=== PATIENT | female | born 1940 | race Caucasian/White ===

== ENCOUNTER → 2016-12-26 | Outpatient (CLI) | payer MEDICARE ==
[~2016-12-26] MED LIST: AMLO5TAB2 PO; ASP81TEC PO; CALCIUM; ESCT10T PO; GLUC-137 PO; LSNP20T PO; METF-380 PO; OMEG-12 PO; SAXA1TBM3 PO
--- NOTE | 2016-12-26 17:12 | Diagnostic Imaging Report ---
EXAMINATION: DEXA scan. INDICATION: Osteopenia TECHNIQUE: Bone mineral density estimated based on dual energy radiography over the lumbar spine and femoral necks, was performed. FINDINGS: The lumbar spine T-score is 0. This is 12% increased density compared to 2007 and is likely artifactual secondary to degenerative sclerosis. T score over the left femoral neck is -2.4 and on the right side is -2.7 averaging at -2.6 and is 8% decreased density compared to 2007. Femoral neck measurements are considered more reliable in this patient. IMPRESSION: Osteoporosis.. Dictated by: Dictated on workstation # [id number]
== END ==
LOC: RAD 09:10
PROVIDERS: ATTEND Family Medicine
DX: M81.0 Age-related osteoporosis without current pathological fracture (principal)
CPT/HCPCS: 77080

== ENCOUNTER → 2017-02-07 | Outpatient (CLI) | payer MEDICARE ==
--- NOTE | 2017-02-07 08:56 | Diagnostic Imaging Report ---
INDICATION: Dry cough for approximately 4 months. TECHNIQUE: Two view chest 8:58 AM CORRELATION STUDY: 01/03/2015 FINDINGS: The heart size, mediastinal configuration and pulmonary vasculature are within normal limits. The lungs are clear with no consolidating infiltrate. There is no significant pleural effusion or pneumothorax. Mild accentuated kyphotic curvature of the thoracic spine owing to mildly compressed mid thoracic vertebral bodies, stable. IMPRESSION: 1. No radiographic evidence for acute abnormality of the chest. Dictated by: Dictated on workstation # [id number]
== END ==
LOC: RAD 08:35
PROVIDERS: ATTEND Family Medicine
DX: R05 Cough (principal)
CPT/HCPCS: 71020

== ENCOUNTER → 2017-03-20 | Outpatient (CLI) | payer MEDICARE ==
--- NOTE | 2017-03-20 16:19 | Diagnostic Imaging Report ---
Two views of the right hand. INDICATION: Pain in the right middle finger. FINDINGS: There is no fracture, dislocation or radiopaque foreign body. There is mild to moderate degenerative change seen in the carpometacarpal joint at the base of the thumb. Mild degenerative changes in the distal interphalangeal joints slightly more prominent in the middle finger is seen with the osteophyte formation. IMPRESSION: Uawm-ur-hullyjps degenerative changes. Dictated by: Dictated on workstation # [id number]
== END ==
LOC: RAD 10:44
PROVIDERS: ATTEND Family Medicine
DX: M19.041 Primary osteoarthritis, right hand (principal)
CPT/HCPCS: 73130

== ENCOUNTER → 2017-10-15 | Outpatient (CLI) | payer MEDICARE ==
--- NOTE | 2017-10-15 14:38 | Diagnostic Imaging Report ---
INDICATION: Right hip pain. TIME OF EXAM: 12:21 PM. FINDINGS: The femoroacetabular alignment is normal. Mild joint space narrowing is seen. The femoral head and neck are intact. No fractures are seen. IMPRESSION: No acute bony abnormality is detected. Dictated by: Dictated on workstation # [id number]
--- NOTE | 2017-10-15 14:38 | Diagnostic Imaging Report ---
INDICATION: Chronic back pain. TIME OF EXAM: 12:20 p.m. FINDINGS: Three views of the lumbar spine demonstrate normal curvature and alignment. Vertebral body heights are maintained. No acute compression fracture is detected. There is multilevel degenerative disc disease with significant disc space narrowing and marginal spurring at the L2-L3, L3-L4 and L4-L5 levels. There is vacuum disc phenomenon at these levels as well. Multilevel facet arthropathy is seen. There are atherosclerotic calcifications in the abdominal aorta. IMPRESSION: Severe lumbar spondylosis. No acute fracture is detected. Dictated by: Dictated on workstation # [id number]
== END ==
LOC: RAD 11:51
PROVIDERS: ATTEND Family Medicine
DX: M47.816 Spondylosis without myelopathy or radiculopathy, lumbar region (principal); M54.41 Lumbago with sciatica, right side; M25.551 Pain in right hip
CPT/HCPCS: 72100; 73502

== ENCOUNTER 2017-11-14 08:31 | Outpatient (RCR) | payer MEDICARE | END 2017-12-26 12:01 | disposition home or self-care (01) | PROVIDERS: ATTEND Family Medicine | DX: M16.11 Unilateral primary osteoarthritis, right hip (principal); M51.36 Other intervertebral disc degeneration, lumbar region ==

== ENCOUNTER 2018-07-01 15:58 | Emergency (ER) | payer MEDICARE ==
[~2018-07-01] VITALS: Ht 154.9 cm; Wt 59.0 kg
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
--- NOTE | 2018-07-01 17:06 | Diagnostic Imaging Report ---
INDICATION: FINDINGS: Frontal and lateral views of the left tibia and fibula demonstrate osteopenia. No fracture or foreign body is present. Mild degenerative change is present in the knee. IMPRESSION: There are no acute findings. Dictated by: Dictated on workstation # [id number]
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
[2018-07-01] MEDS ORDERED: TETRACAINE 0.5% OPHTH SOLN 4 ML BTL (SINGLE DOSE ONLY) ONE (17:35)
[2018-07-01] MEDS ORDERED: AMOX500C2 PO (17:47)
[2018-07-01 18:00] VITALS: BP 169/91
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
== END 2018-07-01 18:02 | disposition home or self-care (01) ==
LOC: EDUNIT# 15:58 → ER 15:59
DX: S02.82XA Fracture of other specified skull and facial bones, left side, initial encounter for closed fracture (principal); E11.9 Type 2 diabetes mellitus without complications; F32.9 Major depressive disorder, single episode, unspecified; R40.2142 Coma scale, eyes open, spontaneous, at arrival to emergency department; R40.2252 Coma scale, best verbal response, oriented, at arrival to emergency department; R40.2362 Coma scale, best motor response, obeys commands, at arrival to emergency department; F17.200 Nicotine dependence, unspecified, uncomplicated; Z79.82 Long term (current) use of aspirin; Z79.84 Long term (current) use of oral hypoglycemic drugs; V49.50XA Passenger injured in collision with unspecified motor vehicles in traffic accident, initial encounter
CPT/HCPCS: 70450; 70486; 72125; 73590

== ENCOUNTER 2018-09-16 12:18 | Emergency (ER) | payer MEDICARE ==
[~2018-09-16] VITALS: Ht 154.9 cm; Wt 59.0 kg
[~2018-09-16 12:18] MED LIST changes: +AMOX500C2 PO
[2018-09-16] MEDS ORDERED: ASPIRIN 81 MG CHEW (CHILDREN'S ASA) PO ONE (12:45)
[2018-09-16 12:53] LABS: BASOPHILS % (AUTO) 0 % (0-10); EOSINOPHILS # (AUTO) 0.2 10^3/uL (0.0-0.3); EOSINOPHILS % (AUTO) 2 % (0-10); HEMATOCRIT 42 % (35-52); HEMOGLOBIN 14.3 G/DL (11.5-16.0); LYMPHOCYTES # (AUTO) 2.7 X 10^3 (1.0-4.0); LYMPHOCYTES % (AUTO) 28 % (12-44); MEAN CORPUSCULAR HEMOGLOBIN 28 PG (25-34); MEAN CORPUSCULAR HGB CONC 34 G/DL (32-36); MEAN CORPUSCULAR VOLUME 82 FL (80-99); MEAN PLATELET VOLUME 10.1 FL (7.4-10.4); MONOCYTES # (AUTO) 0.6 X 10^3 (0.0-1.0); MONOCYTES % (AUTO) 6 % (0-12); NEUTROPHILS # (AUTO) 6.1 X 10^3 (1.8-7.8); NEUTROPHILS % (AUTO) 63 % (42-75); PLATELET COUNT 242 10^3/uL (130-400); RED BLOOD COUNT 5.07 10^6/uL (4.35-5.85); RED CELL DISTRIBUTION WIDTH 13.1 % (10.0-14.5); WHITE BLOOD COUNT 9.6 10^3/uL (4.3-11.0)
[2018-09-16 13:00] LABS: PROTHROMBIN TIME PATIENT 13.3 SEC (12.2-14.7)
[2018-09-16 13:05] LABS: ALANINE AMINOTRANSFERASE 20 U/L (0-55); ALBUMIN 4.7 GM/DL (3.2-4.5); ALKALINE PHOSPHATASE 70 U/L (40-136); BILIRUBIN,TOTAL 0.5 MG/DL (0.1-1.0); BUN/CREATININE RATIO 21; CALCIUM 10.5 MG/DL (8.5-10.1); CARBON DIOXIDE 18 MMOL/L (21-32); CHLORIDE 105 MMOL/L (98-107); CREATININE SERUM 0.99 MG/DL (0.60-1.30); GFR ESTIMATED 54; GLUCOSE 233 MG/DL (70-105); MAGNESIUM 2.3 MG/DL (1.8-2.4); POTASSIUM 3.9 MMOL/L (3.6-5.0); SODIUM 141 MMOL/L (135-145); TOTAL PROTEIN 8.1 GM/DL (6.4-8.2)
--- NOTE | 2018-09-16 13:07 | Diagnostic Imaging Report ---
INDICATION: Chest pain. TIME OF EXAM: 12:54 p.m. Comparison is made with prior chest from 02/07/2017. The heart size is normal. The pulmonary vascularity is unremarkable. The lungs are clear. No infiltrate, effusion or pneumothorax is detected. IMPRESSION: No acute cardiopulmonary process is detected. Dictated by: Dictated on workstation # [id number]
[2018-09-16 13:12] LABS: MYOGLOBIN SERUM 52.8 NG/ML (10.0-92.0)
[2018-09-16 13:32] LABS: BILIRUBIN,URINE NEGATIVE (NEGATIVE); CLARITY,URINE CLEAR; COLOR,URINE YELLOW; GLUCOSE, URINE (UA) 1+ (NEGATIVE); KETONES,URINE 1+ (NEGATIVE); LEUKOCYTE ESTERASE ,URINE 1+ (NEGATIVE); NITRITE,URINE NEGATIVE (NEGATIVE); PH,URINE 7 (5-9); PROTEIN,URINE NEGATIVE (NEGATIVE); UROBILINOGEN,URINE NORMAL (NORMAL)
[2018-09-16 13:40] LABS: BACTERIA,URINE NEGATIVE /HPF; SQUAMOUS EPITHELIAL CELL,UR RARE /HPF; WBC,URINE RARE /HPF
--- NOTE | 2018-09-16 13:49 | ED Chest Pain ---
General Chief Complaint: Chest Pain Stated Complaint: CHEST PAIN Nursing Triage Note: Pt had to be gotten out of car and brought to rm 9 in wheelchair. Pt presented with sense of impending doom. Pt reports having a dream last night that God spoke to pt that, "He was going to have to possibly take me." Pt c/o chest pain, numbness in feet and nose. Pt extremely anxious and repeating, "God's going to take me." Pt reports taking 650mg ASA prior to arrival to ED. Nursing Sepsis Screen: No Definite Risk Source: patient Exam Limitations: no limitations History of Present Illness Date Seen by Provider: Sep 16, 2018 Time Seen by Provider: 12:43 Allergies and Home Medications Allergies Coded Allergies: No Known Drug Allergies (Verified Allergy, Unknown, 09/18/07) Home Medications Amlodipine Besylate 5 Mg Tablet, 5 MG PO DAILY, (Reported) Amoxicillin 500 Mg Capsule, 500 MG PO TID Prescribed by: DAKOTA CAO on 07/01/18 174 Aspirin 81 Mg Tabec, 81 MG PO DAILY, (Reported) Escitalopram Oxalate 10 Mg Tablet, 10 MG PO DAILY, (Reported) Glucosamine/Chondroitin/Vit D3 1 Each Tablet, 1 EACH PO DAILY, (Reported) Lisinopril 20 Mg Tab, 20 MG PO DAILY, (Reported) Metformin Hcl 1,000 Mg Tablet, 1,000 MG PO HS, (Reported) [place]-3/Dha/Epa/Fish Oil 1 Each Capsule.dr, 1,000 MG PO DAILY, (Reported) Saxagliptin Hcl/Metformin Hcl 1 Each Tbmp.24hr, 1 EACH PO DAILY, (Reported) [Calcium] , 1 DAILY, (Reported) Past Kehntkn-Ztdxuj-Axgvgu Hx Patient Social History Recent Foreign Travel: No Contact w/Someone Who Travel: No Recent Infectious Disease Expo: No Immunizations Up To Date Tetanus Booster (TDap): Unknown Date of Pneumonia Vaccine: Jun 24, 2011 Date of Influenza Vaccine: Jun 22, 2012 Past Medical History Surgeries: No Respiratory: No Cardiac: Yes Hypertension Neurological: No Reproductive Disorders: No Genitourinary: No Gastrointestinal: No Musculoskeletal: No Endocrine: Yes Diabetes, Non-Insulin dep Cancer: No Psychosocial: Yes Depression Integumentary: No Blood Disorders: No Adverse Reaction/Blood Tranf: No Physical Exam Vital Signs Vital Signs - First Documented 09/16/18 12:18 Temp 98.0 Pulse 99 Resp 46 B/P (MAP) 193/88 (123) Pulse Ox 99 O2 Delivery Room Air Capillary Refill : Less Than 3 Seconds Height, Weight, BMI Height: 5'1.00" Weight: 130lbs. oz. 58.800264po; 26.33 BMI Method:Stated Progress/Results/Core Measures Results/Orders Lab Results Laboratory Tests Test 09/16/18 12:30 09/16/18 13:12 09/16/18 13:24 Range/Units White Blood Count 9.6 4.3-11.0 10^3/uL Red Blood Count 5.07 4.35-5.85 10^6/uL Hemoglobin 14.3 11.5-16.0 G/DL Hematocrit 42 35-52 % Mean Corpuscular Volume 82 80-99 FL Mean Corpuscular Hemoglobin 28 25-34 PG Mean Corpuscular Hemoglobin Concent 34 32-36 G/DL Red Cell Distribution Width 13.1 10.0-14.5 % Platelet Count 242 130-400 10^3/uL Mean Platelet Volume 10.1 7.4-10.4 FL Neutrophils (%) (Auto) 63 42-75 % Lymphocytes (%) (Auto) 28 12-44 % Monocytes (%) (Auto) 6 0-12 % Eosinophils (%) (Auto) 2 0-10 % Basophils (%) (Auto) 0 0-10 % Neutrophils # (Auto) 6.1 1.8-7.8 X 10^3 Lymphocytes # (Auto) 2.7 1.0-4.0 X 10^3 Monocytes # (Auto) 0.6 0.0-1.0 X 10^3 Eosinophils # (Auto) 0.2 0.0-0.3 10^3/uL Basophils # (Auto) 0.0 0.0-0.1 10^3/uL Prothrombin Time 13.3 12.2-14.7 SEC INR Comment 1.0 0.8-1.4 Activated Partial Thromboplast Time 29 24-35 SEC Sodium Level 141 135-145 MMOL/L Potassium Level 3.9 3.6-5.0 MMOL/L Chloride Level 105 98-107 MMOL/L Carbon Dioxide Level 18 L 21-32 MMOL/L Anion Gap 18 H 5-14 MMOL/L Blood Urea Nitrogen 21 H 7-18 MG/DL Creatinine 0.99 0.60-1.30 MG/DL Estimat Glomerular Filtration Rate 54 BUN/Creatinine Ratio 21 Glucose Level 233 H 70-105 MG/DL Calcium Level 10.5 H 8.5-10.1 MG/DL Corrected Calcium 8.5-10.1 MG/DL Magnesium Level 2.3 1.8-2.4 MG/DL Total Bilirubin 0.5 0.1-1.0 MG/DL Aspartate Amino Transf (AST/SGOT) 21 5-34 U/L Alanine Aminotransferase (ALT/SGPT) 20 0-55 U/L Alkaline Phosphatase 70 40-136 U/L Myoglobin 52.8 10.0-92.0 NG/ML Troponin I < 0.30 <0.30 NG/ML B-Type Natriuretic Peptide 25.4 <100.0 PG/ML Total Protein 8.1 6.4-8.2 GM/DL Albumin 4.7 H 3.2-4.5 GM/DL Glucometer 269 H 70-110 MG/DL Urine Color YELLOW Urine Clarity CLEAR Urine pH 7 5-9 Urine Specific [place] 1.010 L 1.016-1.022 Urine Protein NEGATIVE NEGATIVE Urine Glucose (UA) 1+ H NEGATIVE Urine Ketones 1+ H NEGATIVE Urine Nitrite NEGATIVE NEGATIVE Urine Bilirubin NEGATIVE NEGATIVE Urine Urobilinogen NORMAL NORMAL MG/DL Urine Leukocyte Esterase 1+ H NEGATIVE Urine RBC (Auto) NEGATIVE NEGATIVE Urine RBC NONE /HPF Urine WBC RARE /HPF Urine Squamous Epithelial Cells RARE /HPF Urine Crystals NONE /LPF Urine Bacteria NEGATIVE /HPF Urine Casts NONE /LPF Urine Mucus NEGATIVE /LPF Urine Culture Indicated NO My Orders Orders - BERNMICHEL,SOFIE Cbc With Automated Diff (09/16/18 12:43) Magnesium (09/16/18 12:43) Chest 1 View, Ap/Pa Only (09/16/18 12:43) Ekg Tracing (09/16/18 12:43) Cardiac Profile 1 (09/16/18 12:43) Comprehensive Metabolic Panel (09/16/18 12:43) Myoglobin Serum (09/16/18 12:43) Protime With Inr (09/16/18 12:43) Partial Thromboplastin Time (09/16/18 12:43) O2 (09/16/18 12:43) Monitor-Rhythm Ecg Trace Only (09/16/18 12:43) Lipid Panel (09/17/18 06:00) Aspirin Chewable Tablet (Baby Aspirin Ch (09/16/18 12:45) Saline Lock/Iv-Start (09/16/18 12:43) BNP (09/16/18 12:43) Ua Culture If Indicated (09/16/18 12:53) Vital Signs/I&O 09/16/18 12:18 Temp 98.0 Pulse 99 Resp 46 B/P (MAP) 193/88 (123) Pulse Ox 99 O2 Delivery Room Air Blood Pressure Mean: 123 FSBG Bedside Testing Finger Stick Blood Glucose: 269 Blood Glucose Action Taken: lakesha notified Departure Impression Primary Impression: Anxiety Additional Impression: Chest pain Disposition: HOME, SELF-CARE Condition: Stable/Unchanged Departure-Patient Inst. Decision time for Depature: 13:47 Referrals: HANSEL EASLEY MD, JACQUELINE S DO (PCP/Family) Primary Care Physician Patient Instructions: Anxiety, Adult (DC), Chest Pain (DC) Add. Discharge Instructions: Resume your home medications as previously prescribed. Call Dr. Easley or cinder pit worker of your choice to schedule an appointment for close follow-up. Call today for an appointment time. Return back to the emergency room for worsening chest pain, shortness of breath, worsening symptoms or concerns ans needed. All discharge instructions reviewed with patient and/or family. Voiced understanding. SOIFE MURILLO Sep 16, 2018 13:49
[2018-09-16 14:07] VITALS: BP 152/79
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
== END 2018-09-16 14:07 | disposition home or self-care (01) ==
LOC: EDUNIT# 12:18 → ER 12:19
DX: F41.9 Anxiety disorder, unspecified (principal); R07.89 Other chest pain; I10 Essential (primary) hypertension; E11.9 Type 2 diabetes mellitus without complications; F32.9 Major depressive disorder, single episode, unspecified; Z79.82 Long term (current) use of aspirin; Z79.84 Long term (current) use of oral hypoglycemic drugs
CPT/HCPCS: 36415; 71045; 80053; 81000; 82962; 83735; 83874; 83880; 84484; 85025; 85610; 85730; 93005; 93041

== ENCOUNTER 2018-10-01 11:31 | Observation (INO) | payer MEDICARE ==
[~2018-10-01] VITALS: Ht 157.5 cm; Wt 61.2 kg
[2018-10-01] MEDS ORDERED: ALPRAZolam 0.25 MG (XANAX) TAB PO PRN (11:45)
[2018-10-01] MEDS ORDERED: PATIENT MAY USE OWN MEDS, ALL PO SCH (11:45)
[2018-10-01] MEDS ORDERED: LORazepam INJ 2 MG/ML (ATIVAN) VIAL IVP NR (11:45)
[2018-10-01] MEDS ORDERED: SERTRALINE 50 MG (ZOLOFT) TABLET PO NR (11:45)
[2018-10-01] MEDS ORDERED: PANTOPRAZOLE 40 MG (PROTONIX) TAB PO NR (11:45)
[2018-10-01] MEDS ORDERED: ONDANSETRON 4 MG/2 ML (SDV) Z0FRAN IV PRN (11:45)
[2018-10-01 12:15] VITALS: BP 105/101
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
[2018-10-01] MEDS ORDERED: MELO7.5T46 PO (13:24)
[2018-10-01] MEDS ORDERED: LOSA100T8 PO (13:24)
[2018-10-01] MEDS ORDERED: METF-399 PO (13:24)
[2018-10-01] MEDS ORDERED: BUSP5TAB59 PO (13:24)
[2018-10-01] MEDS ORDERED: ASPI-983 PO (13:24)
[2018-10-01] MEDS ORDERED: ALPR0.254 PO (13:24)
[2018-10-01] MEDS ORDERED: GLIM4TAB PO (13:24)
[2018-10-01] MEDS ORDERED: AMLO5TAB7 PO (13:24)
[2018-10-01] MEDS: inSUlin ASPART (NovoLOG) 1 UNIT/0.01 ML (CHARGE PER UNIT) SC SCH ×3 (13:25→20:44)
[2018-10-01 13:48] LABS: BASOPHILS % (AUTO) 0 % (0-10); EOSINOPHILS # (AUTO) 0.2 10^3/uL (0.0-0.3); EOSINOPHILS % (AUTO) 2 % (0-10); HEMATOCRIT 41 % (35-52); HEMOGLOBIN 14.1 G/DL (11.5-16.0); LYMPHOCYTES # (AUTO) 2.8 X 10^3 (1.0-4.0); LYMPHOCYTES % (AUTO) 30 % (12-44); MEAN CORPUSCULAR HEMOGLOBIN 28 PG (25-34); MEAN CORPUSCULAR HGB CONC 34 G/DL (32-36); MEAN CORPUSCULAR VOLUME 82 FL (80-99); MEAN PLATELET VOLUME 10.1 FL (7.4-10.4); MONOCYTES # (AUTO) 0.8 X 10^3 (0.0-1.0); MONOCYTES % (AUTO) 8 % (0-12); NEUTROPHILS # (AUTO) 5.6 X 10^3 (1.8-7.8); NEUTROPHILS % (AUTO) 60 % (42-75); PLATELET COUNT 260 10^3/uL (130-400); RED BLOOD COUNT 5.06 10^6/uL (4.35-5.85); RED CELL DISTRIBUTION WIDTH 13.3 % (10.0-14.5); WHITE BLOOD COUNT 9.4 10^3/uL (4.3-11.0)
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
[2018-10-01 14:09] LABS: ALANINE AMINOTRANSFERASE 15 U/L (0-55); ALBUMIN 4.7 GM/DL (3.2-4.5); ALKALINE PHOSPHATASE 68 U/L (40-136); BILIRUBIN,TOTAL 0.8 MG/DL (0.1-1.0); BUN/CREATININE RATIO 21; CALCIUM 10.8 MG/DL (8.5-10.1); CARBON DIOXIDE 23 MMOL/L (21-32); CHLORIDE 103 MMOL/L (98-107); CREATININE SERUM 0.94 MG/DL (0.60-1.30); GFR ESTIMATED 58; GLUCOSE 115 MG/DL (70-105); POTASSIUM 3.7 MMOL/L (3.6-5.0); SODIUM 139 MMOL/L (135-145)
[2018-10-01 16:00] VITALS: BP 131/70
[2018-10-01] MEDS ORDERED: ACETAMINOPHEN 325 MG TABLET PO PRN (17:45)
--- NOTE | 2018-10-01 17:48 | History & Physicial ---
History of Present Illness History of Present Illness Reason for visit/HPI This is a 78 year old female who was seen in the emergency room the day after [place] with an anxiety attack.. She presented to my office today with another anxiety attack and stated she was unable to go home. It was decided to direct admit her for IV ativan and to change her anxiolytic medications. Date of Admission Oct 01, 2018 at 12:11 Date Seen by a Provider: Oct 01, 2018 Time Seen by a Provider: 11:30 I consulted on this patient on 10/01/18 17:43 Attending Physician Alexa Lama DO Admitting Physician Alexa Lama DO Consult Allergies and Home Medications Allergies Coded Allergies: No Known Drug Allergies (Verified , 09/18/07) Home Medications Alprazolam 0.25 Mg Tablet, 0.25 MG PO BID, (Reported) Amlodipine Besylate 5 Mg Tablet, 5 MG PO DAILY, (Reported) Aspirin 81 Mg Tablet.dr, 81 MG PO DAILY, (Reported) Glimepiride 4 Mg Tablet, 4 MG PO BID, (Reported) Losartan Potassium 100 Mg Tablet, 100 MG PO DAILY, (Reported) Meloxicam 7.5 Mg Tablet, 7.5 MG PO DAILY, (Reported) Metformin HCl 1,000 Mg Tablet, 1,000 MG PO BID, (Reported) Patient Home Medication List Home Medication List Reviewed: Yes Past Upfapxt-[place]uc-Kawztm Hx Patient Social History Alcohol Use: Occasionally Uses Alcohol Beverage of Choice: Beer Recreational Drug Use: No Smoking Status: Never a Smoker 2nd Hand Smoke Exposure: No Physical Abuse Screen: No Sexual Abuse: No Recent Foreign Travel: No Contact w/other who traveled: No Recent Infectious Disease Expo: No Immunizations Up To Date Tetanus Booster (TDap): Unknown Date of Pneumonia Vaccine: Jun 24, 2011 Date of Influenza Vaccine: Jul 24, 2018 Surgeries No Respiratory No Cardiovascular Yes Hypertension Neurological No Reproductive System Hx Reproductive Disorders: No Genitourinary No Gastrointestinal No Musculoskeletal No Endocrine History of Endocrine Disorders: Yes Endocrine Disorders: Diabetes, Non-Insulin dep Cancer No Psychosocial History of Psychiatric Problem: Yes Behavioral Health Disorders: Depression Integumentary History of Skin or Integumenta: No Blood Transfusions History of Blood Disorders: No Adverse Reaction to a Blood Tr: No Review of Systems Constitutional: No no symptoms reported, No see HPI, No chills, No diaphoresis , No dizziness, No fever, No malaise, No weakness, No weight gain, No weight loss, No other EENTM: No see HPI, No no symptoms reported, No ear discharge, No hearing loss, No ear pain, No blurred vision, No double vision, No eye pain, No tearing, No vision loss, No dental problems, No hoarseness, No mouth pain, No mouth swelling , No epistaxis, No nose congestion, No nose pain, No throat pain, No throat swelling, No other Respiratory: short of breath Cardiovascular: No no symptoms reported, No see HPI, No chest pain, No edema, No Hx of Intervention, No palpitations, No syncope, No vascular heart diseas, No other Gastrointestinal: loss of appetite, nausea Genitourinary: No no symptoms reported, No see HPI, No decreased output, No discharge, No dysuria, No frequency, No hematuria, No hesitancy, No incontinence , No nocturia, No pain, No other Musculoskeletal: No no symptoms reported, No see HPI, No back pain, No gout, No joint pain, No joint swelling, No muscle pain, No muscle stiffness, No muscle cramps, No muscle twitching, No muscle weakness, No neck pain, No other Skin: No no symptoms reported, No see HPI, No change in color, No change in hair/nails, No dryness, No hx of skin cancer, No lesions, No lumps, No pruritus , No rash, No other Psychiatric/Neurological: Anxiety, Numbness Physical Exam Vital Signs Vital Signs - First Documented 10/01/18 12:15 Temp 99.0 Pulse 100 Resp 26 B/P (MAP) 105/101 (102) Pulse Ox 95 O2 Delivery Room Air Capillary Refill : Height, Weight, BMI Height: 5'2.00" Weight: 135lbs. 0.0oz. [id number]; 24.7 BMI Method:Stated General Appearance: Severe Distress HEENT: Normal ENT Inspection Neck: Supple Respiratory: Lungs Clear Cardiovascular: Regular Rate, Rhythm, Systolic Murmur Gastrointestinal: Normal Bowel Sounds, Non Tender, Soft Rectal: Deferred Back: No CVA Tenderness Extremity: Non Tender, No Calf Tenderness, No Pedal Edema Neurologic/Psychiatric: Alert, Oriented x3, Other (anxious, tearful, irritated , hyperventilating) Skin: Warm/Dry Comments Laboratory Tests 10/01/18 13:23: Glucometer 138H 10/01/18 13:35: White Blood Count 9.4, Red Blood Count 5.06, Hemoglobin 14.1, Hematocrit 41, Mean Corpuscular Volume 82, Mean Corpuscular Hemoglobin 28, Mean Corpuscular Hemoglobin Concent 34, Red Cell Distribution Width 13.3, Platelet Count 260, Mean Platelet Volume 10.1, Neutrophils (%) (Auto) 60, Lymphocytes (%) (Auto) 30 , Monocytes (%) (Auto) 8, Eosinophils (%) (Auto) 2, Basophils (%) (Auto) 0, Neutrophils # (Auto) 5.6, Lymphocytes # (Auto) 2.8, Monocytes # (Auto) 0.8, Eosinophils # (Auto) 0.2, Basophils # (Auto) 0.0, Sodium Level 139, Potassium Level 3.7, Chloride Level 103, Carbon Dioxide Level 23, Anion Gap 13, Blood Urea Nitrogen 20H, Creatinine 0.94, Estimat Glomerular Filtration Rate 58, BUN/ Creatinine Ratio 21, Glucose Level 115H, Calcium Level 10.8H, Corrected Calcium , Total Bilirubin 0.8, Aspartate Amino Transf (AST/SGOT) 17, Alanine Aminotransferase (ALT/SGPT) 15, Alkaline Phosphatase 68, Total Protein 8.0, Albumin 4.7H, Thyroid Stimulating Hormone (TSH) 1.74 10/01/18 15:54: Glucometer 85 Assessment/Plan Assessment and Plan 1. Acute Panic Attack with Generalized Anxiety Disorder--admit and give IV ativan then change cymbalta to zoloft and use xanax prn 2. DMII--put on accuchecks with SSI 3. Hypertension--resume home meds 4. Chest Pain--check 2-D ECHO Admission Diagnosis Admission Status: Observation Clinical Quality Measures DVT/VTE Risk/Contraindication: Risk Factor Score Per Nursin RFS Level Per Nursing on Admit: 2=Moderate ALEXA LAMA DO Oct 01, 2018 17:48
[2018-10-01] MEDS ORDERED: NON-FORMULARY MEDICATION 1 EA EA (Metformin HCl 1,000 MG) PO SCH (21:00)
[2018-10-01] MEDS ORDERED: SERTRALINE 50 MG (ZOLOFT) TABLET PO SCH (21:00)
[2018-10-02 00:39] VITALS: BP 130/64
[2018-10-02] MEDS: inSUlin ASPART (NovoLOG) 1 UNIT/0.01 ML (CHARGE PER UNIT) SC SCH ×2 (06:49→11:26)
[2018-10-02] MEDS ORDERED: PANTOPRAZOLE 40 MG (PROTONIX) TAB PO SCH (07:00)
[2018-10-02] MEDS ORDERED: metFORMIN 500 MG (GLUCOPHAGE) TAB PO SCH (07:00)
[2018-10-02 08:00] VITALS: BP 150/65
--- NOTE | 2018-10-02 08:56 | NUR ---
ECHO DONE AT BEDSIDE.
[2018-10-02] MEDS ORDERED: amLODIPine 5 MG (NORVASC) TAB PO SCH (09:00)
[2018-10-02] MEDS ORDERED: ASPIRIN E.C. 81 MG (ECOTRIN) TAB PO SCH ×2 (09:00)
[2018-10-02] MEDS ORDERED: LOSARTAN 100 MG (COZAAR) TABLET PO SCH (09:00)
[2018-10-02] MEDS ORDERED: NON-FORMULARY MEDICATION 1 EA EA (Amlodipine Besylate 5 MG) PO SCH (09:00)
[2018-10-02] MEDS ORDERED: PANT40TA3 PO (14:04)
[2018-10-02] MEDS ORDERED: ALPR0.254 PO (14:04)
[2018-10-02] MEDS ORDERED: SERT100T8 PO (14:04)
--- NOTE | 2018-10-02 14:06 | Discharge Inst-Simple/Standard ---
Discharge Inst-Standard Discharge Medications New, Converted or Re-Newed RX: Transmitted to Pharmacy Patient Instructions/Follow Up Plan of Care/Instructions/FU: FU on October 07 Activity as Tolerated: Yes Discharge Diet: ADA Diet JOSEP FLOWERS DO Oct 02, 2018 14:06
--- NOTE | 2018-10-02 14:14 | Discharge Summary ---
Diagnosis/Chief Complaint Date of Admission Oct 01, 2018 at 12:11 Date of Discharge Discharge Date: Oct 02, 2018 Discharge Diagnosis 1. Panic Attack with Acute Anxiety--home on sertraline and anxiety Reason Hospital Visit This is a 78 year old female who was seen in the emergency room the day after [place] with an anxiety attack.. She presented to my office today with another anxiety attack and stated she was unable to go home. It was decided to direct admit her for IV ativan and to change her anxiolytic medications. Discharge Summary Hospital Course Hospital Course This is a 78 year old female who was seen in the emergency room the day after [place] with an anxiety attack.. She presented to my office today with another anxiety attack and stated she was unable to go home. It was decided to direct admit her for IV ativan and to change her anxiolytic medications. She was changed to zoloft form cymbalta and had xanax prn. Patient was much improved by the next day. She has decided to go home and is planning on going to her [place] this weekend to relax and get away from her home stressors. Labs Laboratory Tests 10/01/18 13:23: Glucometer 138H 10/01/18 13:35: Blood Urea Nitrogen 20H, Glucose Level 115H, Calcium Level 10.8H, Albumin 4.7H 10/01/18 15:54: 10/01/18 19:53: Glucometer 183H 10/02/18 05:10: Glucometer 122H 10/02/18 10:56: Glucometer 211H Procedures None. Discharge Physical Examination Allergies: Coded Allergies: No Known Drug Allergies (Verified , 09/18/07) Vitals & I&Os Vital Signs Date Time Temp Pulse Resp B/P (MAP) Pulse Ox O2 Delivery O2 Flow Rate FiO2 10/02/18 08:00 Room Air 10/02/18 08:00 98.2 87 18 150/65 (93) 96 General Appearance: Alert, Oriented X3, Cooperative Respiratory: Clear to Auscultation Cardiovascular: Regular Rate Psych/Mental Status: Mental Status NL, Other (anxious) Discharge Home Medications Reviewed and agree with Discharge Medication list on patient's Discharge Instruction sheet Instructions to Patient/Family Please see electronic discharge instructions given to patient. Clinical Quality Measures DVT/VTE Risk/Contraindication: Risk Factor Score Per Nursin RFS Level Per Nursing on Admit: 2=Moderate ORENDER,JOSEP S DO Oct 02, 2018 14:14
--- NOTE | 2018-10-02 15:14 | NUR ---
DR. FLOWERS HERE AND ORDERS REC'D. HL AND TELE DC'D. 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 RX AND INST AND VERBALIZED UNDERSTANDING.
== END 2018-10-02 14:00 | disposition home or self-care (01) ==
LOC: 4TH 12:11 → UNDOADMOB 12:11 → 4TH 12:15 → UNDODISOB 10-02 15:15
PROVIDERS: ADMIT Family Medicine; ATTEND Family Medicine
DX: F41.0 Panic disorder [episodic paroxysmal anxiety] (principal); F41.1 Generalized anxiety disorder; R07.9 Chest pain, unspecified; I10 Essential (primary) hypertension; E11.9 Type 2 diabetes mellitus without complications; F32.9 Major depressive disorder, single episode, unspecified
CPT/HCPCS: 36415; 80053; 82962; 84443; 85025; 93306

== ENCOUNTER 2019-03-04 05:22 | Emergency (ER) | payer MEDICARE ==
[~2019-03-04] VITALS: Ht 154.9 cm; Wt 61.2 kg
[~2019-03-04 05:22] MED LIST changes: +ALPR0.254 PO; +AMLO5TAB9 PO; +ASPI-983 PO; +BUSP5TAB59 PO; +GLIM4TAB PO; +LOSA100T57 PO; +MELO7.5T46 PO; +METF-399 PO; +PANT40TA3 PO; +SERT100T8 PO
[2019-03-04] MEDS ORDERED: LIDOCAINE 1% INJ 20 ML 20 ML VIAL INJ ONE (06:00)
[2019-03-04] MEDS ORDERED: DEXAMETHASONE 4 MG/ML SDV (DECADRON) IM ONE (06:00)
--- NOTE | 2019-03-04 06:08 | Diagnostic Imaging Report ---
INDICATION: Right elbow injury from a fall. FINDINGS: 3 views of right elbow show no fracture, dislocation or pathologic effusion. IMPRESSION: Negative right elbow. Dictated by: Dictated on workstation # [id number]
--- NOTE | 2019-03-04 06:33 | ED Fall/Injury ---
General Chief Complaint: Upper Extremity Stated Complaint: SWOLLEN RIGHT ELBOW/ FELL AT HOME Nursing Triage Note: Pt amb to room #5 w/o difficulty. a&ox4. c/o pain to rt elbow and rt shoulder. Reports to have experienced fall on 03/03/19 @ 1330, while reaching for a flower pot. Denies loc or striking head. Rt elbow noted to be swollen. AROM noted. Reports pain when rt elbow is touched. Source: patient Exam Limitations: no limitations History of Present Illness Date Seen by Provider: Mar 04, 2019 Time Seen by Provider: 05:32 Initial Comments This 78-year-old woman presents to the emergency room for evaluation of a right elbow injury. She is requesting x-rays to ensure it is not fractured. She was leaning over putting some plants when she fell onto her elbow. She denies any head or neck injury. She has some minimal shoulder pain but denies any other injuries. She has swelling over the olecranon. Allergies and Home Medications Allergies Coded Allergies: No Known Drug Allergies (Verified , 09/18/07) Home Medications Alprazolam 0.25 Mg Tablet, 0.25 MG PO Q8H PRN for ANXIETY Prescribed by: JOSEP FLOWERS on 10/02/18 1404 Amlodipine Besylate 5 Mg Tablet, 5 MG PO DAILY, (Reported) Aspirin 81 Mg Tablet.dr, 81 MG PO DAILY, (Reported) Glimepiride 4 Mg Tablet, 4 MG PO BID, (Reported) Losartan Potassium 100 Mg Tablet, 100 MG PO DAILY, (Reported) Meloxicam 7.5 Mg Tablet, 7.5 MG PO DAILY, (Reported) Metformin HCl 1,000 Mg Tablet, 1,000 MG PO BID, (Reported) Pantoprazole Sodium 40 Mg Tablet.dr, 40 MG PO DAILY@0700 Prescribed by: JOSEP FLOWERS on 10/02/18 140 Sertraline HCl 100 Mg Tablet, 100 MG PO BID Prescribed by: JOSEP FLOWERS on 10/02/181403 Patient Home Medication List Home Medication List Reviewed: Yes Review of Systems Review of Systems Constitutional: no symptoms reported Eyes: No Symptoms Reported Ears, Nose, Mouth, Throat: no symptoms reported Respiratory: no symptoms reported Cardiovascular: no symptoms reported Gastrointestinal: no symptoms reported Genitourinary: no symptoms reported Musculoskeletal: see HPI Skin: no symptoms reported Psychiatric/Neurological: No Symptoms Reported Past Misbabt-Ttetsy-Gcuufa Hx Past Med/Social Hx: Reviewed Nursing Past Med/Soc Hx Patient Social History Alcohol Use: Rarely Uses Number of Drinks Today: AA Alcohol Beverage of Choice: Beer Recreational Drug Use: No Smoking Status: Never a Smoker 2nd Hand Smoke Exposure: No Recent Foreign Travel: No Contact w/Someone Who Travel: No Recent Infectious Disease Expo: No Immunizations Up To Date Tetanus Booster (TDap): Unknown Date of Pneumonia Vaccine: Jun 24, 2011 Date of Influenza Vaccine: Jul 24, 2018 Past Medical History Surgeries: No Respiratory: No Cardiac: Yes Hypertension Neurological: No Reproductive Disorders: No Genitourinary: No Gastrointestinal: No Musculoskeletal: No Endocrine: Yes Diabetes, Non-Insulin dep Cancer: No Psychosocial: Yes Depression Integumentary: No Blood Disorders: No Adverse Reaction/Blood Tranf: No Physical Exam Vital Signs Vital Signs - First Documented 03/04/19 05:30 Temp 96.2 Pulse 79 Resp 16 B/P (MAP) 162/89 (113) Pulse Ox 97 O2 Delivery Room Air Capillary Refill : Less Than 3 Seconds Height, Weight, BMI Height: 5'1.00" Weight: 135lbs. 0.0oz. [id number]; 24.7 BMI Method:Stated General Appearance: WD/WN, no apparent distress HEENT: normal ENT inspection Neck: normal inspection Cardiovascular: regular rate, rhythm, no edema, no murmur Respiratory: lungs clear, normal breath sounds, no respiratory distress, no accessory muscle use Extremities: other (no significant pain with range of motion of the right upper extremity. 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, no motor/sensory deficits, normal mood/affect, oriented x 3 Skin: normal color, warm/dry Chaitanya Coma Score Best Eye Response: (4) Open Spontaneously Best Verbal Response: (5) Oriented Best Motor Response: (6) Obeys Commands [place] Total: 15 Progress/Results/Core Measures Results/Orders My Orders Orders - MICKI CLARK MD Elbow, Right, 3 Views (03/04/19 05:25) Lidocaine 1% Inj 20 Ml (Xylocaine 1% Inj (03/04/19 06:00) Dexamethasone Injection (Decadron Inject (03/04/19 06:00) Medications Given in ED Current Medications Medications Dose Ordered Sig/Vinny Route Start Time Stop Time Status Last Admin Dose Admin Lidocaine HCl 20 ml ONCE ONCE INJ 03/04/19 06:00 03/04/19 06:01 DC 03/04/19 05:59 20 ML Vital Signs/I&O 03/04/19 05:30 Temp 96.2 Pulse 79 Resp 16 B/P (MAP) 162/89 (113) Pulse Ox 97 O2 Delivery Room Air Blood Pressure Mean: 113 Progress Progress Note : Progress Note X-ray demonstrated no fracture or dislocation. I discussed options with the patient which included drainage of the bursa an injection of Decadron. She requested to proceed with the procedure. I discussed the risks and benefits including the potential for pain, bleeding, and infection. Patient was agreeable to the procedure. Skin was cleaned with alcohol. Approximately one mL of lidocaine was injected for local anesthetic. Betadine prep was applied. A 22-gauge needle was used to attempt aspiration. A small amount of dark blood was aspirated but no significant fluid. Procedure was attempted again using an 18-gauge needle. Only dark blood was aspirated. I suspect the bursa has hematoma within it. The Decadron was not injected. Patient did have relief of pain with just the local lidocaine. Diagnostic Imaging Diagonstic Imaging: Xray Plain Films/CT/US/NM/MRI: elbow Comments Viewed by me. Report not yet available. No fracture or dislocation appreciated. Departure Impression Primary Impression: Injury of right elbow Qualified Codes: S59.901A - Unspecified injury of right elbow, initial encounter Additional Impression: Olecranon bursitis, right elbow Disposition: HOME, SELF-CARE Condition: Stable Departure-Patient Inst. Decision time for Depature: 06:20 Referrals: JOSEP FLOWERS DO (PCP/Family) Primary Care Physician Patient Instructions: Olecranon Bursitis (DC) Add. Discharge Instructions: Your pain is likely due to bursitis and hematoma. You may ice in 20 minute intervals to help reduce pain and swelling. You may use ibuprofen up to 600 mg every 6 hours and/or Tylenol (acetaminophen) up to 1000 mg every 6 hours as needed. A compressive wrap such as an Hen[place] bandage may also be helpful. Return to care as needed for worsening or unresolved symptoms. Do not use Mobic (meloxicam) if using ibuprofen. All discharge instructions reviewed with patient and/or family. Voiced understanding. MICKI CLARK MD Mar 04, 2019 06:33
[2019-03-04 06:38] VITALS: BP 152/87
== END 2019-03-04 06:38 | disposition home or self-care (01) ==
LOC: EDUNIT# 05:22 → ER 05:24
DX: S59.901A Unspecified injury of right elbow, initial encounter (principal); M70.21 Olecranon bursitis, right elbow; I10 Essential (primary) hypertension; E11.9 Type 2 diabetes mellitus without complications; F32.9 Major depressive disorder, single episode, unspecified; R40.2142 Coma scale, eyes open, spontaneous, at arrival to emergency department; R40.2252 Coma scale, best verbal response, oriented, at arrival to emergency department; R40.2362 Coma scale, best motor response, obeys commands, at arrival to emergency department; Z79.82 Long term (current) use of aspirin; Z79.4 Long term (current) use of insulin; W17.89XA Other fall from one level to another, initial encounter
CPT/HCPCS: 73080

== ENCOUNTER 2019-06-01 06:44 | Emergency (ER) | payer MEDICARE ==
[~2019-06-01] VITALS: Ht 157.8 cm; Wt 61.2 kg
[2019-06-01] MEDS ORDERED: PANTOPRAZOLE 40 MG (PROTONIX) VIAL IV ONE (07:00)
[2019-06-01] MEDS ORDERED: ONDANSETRON 4 MG/2 ML (SDV) Z0FRAN IVP ONE (07:00)
[2019-06-01] MEDS ORDERED: FAMOTIDINE 20MG/2ML IV (PEPCID) IVP ONE (07:00)
--- NOTE | 2019-06-01 07:06 | ED GI ---
General Chief Complaint: Rect Problems Stated Complaint: HEMORRHAGING Nursing Triage Note: Patient states that she has had 3 bloody bowel movement this AM. She states the first one was black and the others were bright red. Patient also states that she has blood dripping from her rectum. Patient is diaphoretic and pale. Sepsis Screen: No Definite Risk Source of Information: Patient Exam Limitations: No Limitations History of Present Illness Date Seen by Provider: Jun 01, 2019 Time Seen by Provider: 06:46 Initial Comments This 78 year old woman presents to the ER by private vehicle reporting abdominal cramping and passage of black stool mixed with red blood. Her symptoms started yesterday when she began feeling ill and very tired. This morning she woke with cramping and began to pass black stool. This later changed to a bloody stool. She has mild tenderness in the epigastric region. She has developed nausea wi thout vomiting. She is also lightheaded and dizzy. She denies shortness of breath. She is not using any blood thinning medications at this time. She denies any prior problems with hematochezia or melena. She thinks she does have some hemorrhoids. She reports having a colonoscopy 6 or 7 years ago. She thought that was performed here but I see no record of it. Diabetic and states her blood sugars have been high lately. Her primary care provider is Dr. FLOWERS. Allergies and Home Medications Allergies Coded Allergies: No Known Drug Allergies (Verified , 09/18/07) Home Medications Alprazolam 0.25 Mg Tablet, 0.25 MG PO Q8H PRN for ANXIETY Prescribed by: JOSEP FLOWERS on 10/02/18 1404 Amlodipine Besylate 5 Mg Tablet, 5 MG PO DAILY, (Reported) Aspirin 81 Mg Tablet.dr, 81 MG PO DAILY, (Reported) Glimepiride 4 Mg Tablet, 4 MG PO BID, (Reported) Losartan Potassium 100 Mg Tablet, 100 MG PO DAILY, (Reported) Meloxicam 7.5 Mg Tablet, 7.5 MG PO DAILY, (Reported) Metformin HCl 1,000 Mg Tablet, 1,000 MG PO BID, (Reported) Omeprazole 20 Mg Capsule.dr, 20 MG PO BID Prescribed by: MICKI TELLEZ on 06/01/19 1023 Pantoprazole Sodium 40 Mg Tablet., 40 MG PO DAILY@0700 Prescribed by: JOSEP FLOWERS on 10/02/18 1404 Sertraline HCl 100 Mg Tablet, 100 MG PO BID Prescribed by: JOSEP FLOWERS on 10/02/18 1404 Patient Home Medication List Home Medication List Reviewed: Yes Review of Systems Review of Systems Constitutional: see HPI, dizziness EENTM: No Symptoms Reported Respiratory: No Symptoms Reported Cardiovascular: See HPI, Lightheadedness Gastrointestinal: See HPI Genitourinary: No Symptoms Reported Musculoskeletal: no symptoms reported Skin: no symptoms reported Psychiatric/Neurological: No Symptoms Reported Endocrine: See HPI Hematologic/Lymphatic: No Symptoms Reported Past Vkkayek-Ngilsd-Qzmrol Hx Past Med/Social Hx: Reviewed and Corrections made Patient Social History Alcohol Use: Denies Use Alcohol Beverage of Choice: Beer Recreational Drug Use: No Smoking Status: Never a Smoker 2nd Hand Smoke Exposure: No Recent Foreign Travel: No Contact w/Someone Who Travel: No Recent Infectious Disease Expo: No Physical Abuse: No Sexual Abuse: No Mistreated: No Fear: No Immunizations Up To Date Tetanus Booster (TDap): Unknown Date of Pneumonia Vaccine: Jun 24, 2011 Date of Influenza Vaccine: Jul 24, 2018 Past Medical History Surgeries: Yes Cardiac (heart catheter 2012 demonstrating no obstructive disease) Respiratory: No Cardiac: Yes Hypertension Neurological: No Reproductive Disorders: No Genitourinary: No Gastrointestinal: No Musculoskeletal: No Endocrine: Yes Diabetes, Non-Insulin dep Cancer: No Psychosocial: Yes Anxiety, Depression Integumentary: No Blood Disorders: No Adverse Reaction/Blood Tranf: No Physical Exam Vital Signs Vital Signs - First Documented 06/01/19 06:49 Temp 35.7 Pulse 84 Resp 22 B/P (MAP) 125/70 Pulse Ox 99 O2 Delivery Room Air Capillary Refill : Less Than 3 Seconds Height/Weight/BMI Height: 5'1.00" Weight: 135lbs. 0.0oz. 61.874663ud; 24.00 BMI Method:Stated General Appearance: WD/WN, mild distress HEENT: PERRL/EOMI, normal ENT inspection Neck: normal inspection Respiratory: lungs clear, normal breath sounds, no respiratory distress, no accessory muscle use Cardiovascular: regular rate, rhythm, no edema, no murmur Gastrointestinal: normal bowel sounds, soft, tenderness (Epigastric) Rectal: other (there is blood on the skin around the anus. No active bleeding at this time. External hemorrhoids without active bleeding noted. No internal masses or hemorrhoids palpated with digital rectal exam. No significant pain with digital rectal exam.) Extremities: normal inspection, no pedal edema Neurologic/Psychiatric: cro II-XII nml as tested, no motor/sensory deficits, alert, normal mood/affect, oriented x 3 Skin: normal color, warm/dry Progress/Results/Core Measures Results/Orders Lab Results Laboratory Tests Test 06/01/19 07:05 Range/Units White Blood Count 9.6 4.3-11.0 10^3/uL Red Blood Count 4.37 4.35-5.85 10^6/uL Hemoglobin 11.9 11.5-16.0 G/DL Hematocrit 36 35-52 % Mean Corpuscular Volume 83 80-99 FL Mean Corpuscular Hemoglobin 27 25-34 PG Mean Corpuscular Hemoglobin Concent 33 32-36 G/DL Red Cell Distribution Width 14.3 10.0-14.5 % Platelet Count 230 130-400 10^3/uL Mean Platelet Volume 9.8 7.4-10.4 FL Neutrophils (%) (Auto) 59 42-75 % Lymphocytes (%) (Auto) 31 12-44 % Monocytes (%) (Auto) 7 0-12 % Eosinophils (%) (Auto) 3 0-10 % Basophils (%) (Auto) 0 0-10 % Neutrophils # (Auto) 5.7 1.8-7.8 X 10^3 Lymphocytes # (Auto) 3.0 1.0-4.0 X 10^3 Monocytes # (Auto) 0.7 0.0-1.0 X 10^3 Eosinophils # (Auto) 0.3 0.0-0.3 10^3/uL Basophils # (Auto) 0.0 0.0-0.1 10^3/uL Prothrombin Time 13.3 12.2-14.7 SEC INR Comment 1.0 0.8-1.4 Activated Partial Thromboplast Time 27 24-35 SEC Sodium Level 140 135-145 MMOL/L Potassium Level 4.5 3.6-5.0 MMOL/L Chloride Level 108 H 98-107 MMOL/L Carbon Dioxide Level 20 L 21-32 MMOL/L Anion Gap 12 5-14 MMOL/L Blood Urea Nitrogen 25 H 7-18 MG/DL Creatinine 1.00 0.60-1.30 MG/DL Estimat Glomerular Filtration Rate 54 BUN/Creatinine Ratio 25 Glucose Level 249 H 70-105 MG/DL Calcium Level 9.2 8.5-10.1 MG/DL Corrected Calcium 9.3 8.5-10.1 MG/DL Total Bilirubin 0.4 0.1-1.0 MG/DL Aspartate Amino Transf (AST/SGOT) 17 5-34 U/L Alanine Aminotransferase (ALT/SGPT) 18 0-55 U/L Alkaline Phosphatase 85 40-136 U/L Total Protein 6.5 6.4-8.2 GM/DL Albumin 3.9 3.2-4.5 GM/DL Lipase 24 8-78 U/L My Orders Orders - MICKI CLARK MD Ed Iv/Invasive Line Start (06/01/19 06:53) Cbc With Automated Diff (06/01/19 06:53) Comprehensive Metabolic Panel (06/01/19 06:53) Protime With Inr (06/01/19 06:53) Partial Thromboplastin Time (06/01/19 06:53) Fecal Occult Bedside (06/01/19 06:53) Pantoprazole Injection (Protonix Injecti (06/01/19 07:00) Famotidine Injection (Pepcid Injection) (06/01/19 07:00) Red Cells Leukocytes Reduced (06/01/19 06:53) Type And Screen (06/01/19 06:53) Ondansetron Injection (Zofran Injectio (06/01/19 07:00) Lipase (06/01/19 06:59) Lactated Ringers (Lr 1000 Ml Iv Solution (06/01/19 07:56) Medications Given in ED Current Medications Medications Dose Ordered Sig/Vinny Route Start Time Stop Time Status Last Admin Dose Admin Famotidine 20 mg ONCE ONCE IVP 06/01/19 07:00 06/01/19 07:01 DC 06/01/19 07:19 20 MG Lactated Ringer's 1,000 ml @ 0 mls/hr Q0M ONCE IV 06/01/19 07:56 06/01/19 07:57 DC 06/01/19 08:02 0 MLS/HR Ondansetron HCl 8 mg ONCE ONCE IVP 06/01/19 07:00 06/01/19 07:01 DC 06/01/19 07:19 8 MG Pantoprazole 80 mg ONCE ONCE IV 06/01/19 07:00 06/01/19 07:01 DC 06/01/19 07:19 80 MG Vital Signs/I&O 06/01/19 06:49 Temp 35.7 Pulse 84 Resp 22 B/P (MAP) 125/70 Pulse Ox 99 O2 Delivery Room Air Blood Pressure Mean: 88 Progress Progress Note #1: Time: 07:06 Progress Note Patient was seen and examined. Vital signs were stable. She was found to have epigastric tenderness. Pepcid, Protonix, and Zofran have been ordered. A crossmatch of 2 units has been ordered to hold. Rectal exam will be performed to determine if there is an obvious source of bleeding. Progress Note #2: Time: 07:24 Progress Note Patient is stable at this time. She is feeling better with just rest. Medications are being given now. Rectal exam revealed external hemorrhoids without any active bleeding. There was dried blood noted around the anus. Progress Note #3: Time: 08:48 Progress Note There was a subtle drop in hemoglobin from patient's baseline but she is not yet anemic. I did have the patient stand and obtain an orthostatic blood pressure. Standing blood pressure was 91/51 and she was symptomatic. A liter of LR is being infused and patient feels much better. I discussed the case with Dr. Hester. As long as vital signs remain stable, we will send the patient to his office to arrange endoscopy. She has had no further passage of stool or rectal bleeding since arriving to the ER. We will watch her for approximately an hour after she finishes fluids to ensure she remained stable. Progress Note #4: Time: 10:34 Progress Note Patient standing blood pressure normalized an hour after receiving IV fluids. Symptoms also improved. There is no further rectal bleeding. Patient was sent to Dr. Hester's office. Departure Impression Primary Impression: GI bleed Qualified Codes: K92.2 - Gastrointestinal hemorrhage, unspecified Additional Impressions: Epigastric pain Hypovolemia due to hemorrhage Disposition: HOME, SELF-CARE Condition: Improved Departure-Patient Inst. Decision time for Depature: 10:21 Referrals: RAJANI HESTER JACQUELINE S DO (PCP/Family) Primary Care Physician Patient Instructions: Clear Liquid Diet, Gastrointestinal Bleeding Add. Discharge Instructions: Stick to a noncarbonated clear liquid diet for the next 24 hours. A very small quantity of coffee is acceptable to prevent caffeine withdrawal. Then gradually advance your diet with small quantities of bland food as tolerated. Start omeprazole as prescribed. Avoid NSAID medications such as meloxicam (Mobic), ibuprofen, naproxen (Aleve), aspirin, etc. Follow-up with Dr. Hester as soon as possible. You may stop by his office after leaving the emergency room to arrange follow-up and endoscopy. Return to the emergency room if you have worsening symptoms including fever, escalating pain, lightheadedness, shortness of breath, significant rectal bleeding, etc. Expect some blood or black stool with the next few bowel movements as you clear blood from your colon. All discharge instructions reviewed with patient and/or family. Voiced understanding. Scripts Omeprazole (Omeprazole) 20 Mg Capsule. 20 MG PO BID, #60 CAP Prov: MICKI CLARK MD 06/01/19 Copy Copies To 1: RAJANI HESTER DO Copies To 2: JOSEP FLOWERS DO MICKI CLARK MD Jun 01, 2019 07:06
[2019-06-01 07:12] LABS: BASOPHILS % (AUTO) 0 % (0-10); EOSINOPHILS # (AUTO) 0.3 10^3/uL (0.0-0.3); EOSINOPHILS % (AUTO) 3 % (0-10); HEMATOCRIT 36 % (35-52); HEMOGLOBIN 11.9 G/DL (11.5-16.0); LYMPHOCYTES % (AUTO) 31 % (12-44); MEAN CORPUSCULAR HEMOGLOBIN 27 PG (25-34); MEAN CORPUSCULAR HGB CONC 33 G/DL (32-36); MEAN CORPUSCULAR VOLUME 83 FL (80-99); MEAN PLATELET VOLUME 9.8 FL (7.4-10.4); MONOCYTES # (AUTO) 0.7 X 10^3 (0.0-1.0); MONOCYTES % (AUTO) 7 % (0-12); NEUTROPHILS # (AUTO) 5.7 X 10^3 (1.8-7.8); NEUTROPHILS % (AUTO) 59 % (42-75); PLATELET COUNT 230 10^3/uL (130-400); RED CELL DISTRIBUTION WIDTH 14.3 % (10.0-14.5); WHITE BLOOD COUNT 9.6 10^3/uL (4.3-11.0)
[2019-06-01 07:23] LABS: PROTHROMBIN TIME PATIENT 13.3 SEC (12.2-14.7)
[2019-06-01 07:32] LABS: ALBUMIN 3.9 GM/DL (3.2-4.5); BILIRUBIN,TOTAL 0.4 MG/DL (0.1-1.0); CALCIUM 9.2 MG/DL (8.5-10.1); POTASSIUM 4.5 MMOL/L (3.6-5.0); TOTAL PROTEIN 6.5 GM/DL (6.4-8.2)
[2019-06-01 07:53] VITALS: BP 91/51
[2019-06-01] MEDS ORDERED: LACTATED RINGERS 1,000 ML IV ONE (07:56)
[2019-06-01 08:01] VITALS: BP 93/50
[2019-06-01 09:30] VITALS: BP_SYST 113; BP_SYST 116; BP_DIAS 61; BP_DIAS 67
[2019-06-01] MEDS ORDERED: OMEP20CA13 PO (10:23)
[2019-06-01 10:37] VITALS: BP 111/64
== END 2019-06-01 10:38 | disposition home or self-care (01) ==
LOC: EDUNIT# 06:44 → ER 06:46
DX: K92.2 Gastrointestinal hemorrhage, unspecified (principal); R10.13 Epigastric pain; E86.1 Hypovolemia; E11.9 Type 2 diabetes mellitus without complications; I10 Essential (primary) hypertension; F41.9 Anxiety disorder, unspecified; F32.9 Major depressive disorder, single episode, unspecified; Z95.9 Presence of cardiac and vascular implant and graft, unspecified; Z79.82 Long term (current) use of aspirin; Z79.84 Long term (current) use of oral hypoglycemic drugs
CPT/HCPCS: 36415; 80053; 83690; 85025; 85610; 85730; 86850; 86900; 86901; 86920

== ENCOUNTER → 2019-06-02 | Outpatient (CLI) | payer MEDICARE ==
[~2019-06-02] MED LIST changes: +OMEP20CA13 PO
== END | disposition home or self-care (01) ==
LOC: PREOP 06:27
PROVIDERS: ATTEND Surgery
DX: Z01.818 Encounter for other preprocedural examination (principal)

== ENCOUNTER 2019-06-07 08:01 | Day surgery (SDC) | payer MEDICARE ==
[~2019-06-07] VITALS: Ht 157.5 cm; Wt 61.2 kg
[2019-06-07] MEDS ORDERED: LACTATED RINGERS 1,000 ML IV ONE (08:04)
[2019-06-07 08:25] VITALS: BP 129/47
[2019-06-07] MEDS ORDERED: LACTATED RINGERS 1,000 ML IV STA (08:43)
--- NOTE | 2019-06-07 08:59 | Progress Note-Pre Operative ---
Pre-Operative Progress Note H&P Reviewed The H&P was reviewed, patient examined and no changes noted. Time Seen by Provider: 08:57 Date H&P Reviewed: Jun 07, 2019 Time H&P Reviewed: 08:56 Pre-Operative Diagnosis: rectal bleed RAJANI HESTER DO Jun 07, 2019 08:59
[2019-06-07] MEDS ORDERED: PROPOFOL INJECTION 50 ML IV ONE (09:20)
[2019-06-07 10:15] VITALS: BP 85/51
[2019-06-07 10:20] VITALS: BP 86/52
--- NOTE | 2019-06-07 10:22 | Progress Note-Post Operative ---
Post-Operative Progess Note Surgeon (s)/Cadd Operator (s) Surgeon RAJANI HESTER DO Cadd Operator: Beatriz Ellis MSIII Pre-Operative Diagnosis rectal bleed Post-Operative Diagnosis Cecal bleeding Diverticula Int Hemorrhoids Procedure & Operative Findings Date of Procedure 06/07/19 Procedure Performed/Findings Colon Anesthesia Type IV sedation by MANAGER HARBOR Estimated Blood Loss Estimated blood loss (mL): scant Specimens/Packing Specimens Removed none RAJANI HESTER DO Jun 07, 2019 10:22
--- NOTE | 2019-06-07 10:26 | Endoscopy Discharge Instruct ---
Endo Procedure/Findings Findings 1.: Other Findings (Bleeding in Cecum) 2.: Diverticulosis 3.: Internal Hemorrhoids Discharge Instructions - Activity: You might feel a little sleepy until tomorrow. This is due to the medicine you received to relax you. Until tomorrow, you should: NOT drive a car, operate machinery or power tools. NOT drink any alcoholic beverages. NOT make any important decisions or sign importortant papers. Do not return to work until tomorrow, unless otherwise instructed. Resume previous activities tomorrow. Diet: Start by taking liquids. If you tolerate liquids, advance to solid food. make an appointment for one week Notify Physician - If you experience excessive bleeding, unusual abdominal pain, fever, or chest pain, contact your doctor immediately. RAJANI HESTER DO Jun 07, 2019 10:25
[2019-06-07 10:50] VITALS: BP 159/82
[2019-06-07 11:30] VITALS: BP 159/82
--- NOTE | 2019-06-07 15:33 | Anesthesia-General Post-Op ---
MAC Patient Condition Mental Status/LOC: Same as Preop Cardiovascular: Satisfactory Nausea/Vomiting: Absent Respiratory: Satisfactory Pain: Controlled Complications: Absent Post Op Complications Complications None Follow Up Care/Instructions Patient Instructions None needed. Anesthesiology Discharge Order Discharge Order Patient is doing well, no complaints, stable vital signs, no apparent adverse anesthesia problems. No complications reported per nursing. ZULEIMA NUNEZ CRNA Jun 07, 2019 15:33
--- NOTE | 2019-06-07 21:52 | OPERATIVE REPORT ---
DATE OF SERVICE: PREOPERATIVE DIAGNOSIS: Rectal bleed. POSTOPERATIVE DIAGNOSES: 1. Cecal bleeding. 2. Diverticula. 3. Internal hemorrhoids. PROCEDURE: Colonoscopy. SURGEON: Gordon Meneses DO HEATING ELEMENT REPAIRER: None. ANESTHESIA: IV sedation by the AUTOMOTIVE GLAZIER. SPECIMENS: None. BLOOD LOSS: Scant. FLUIDS: Per anesthesia. POSTOPERATIVE CONDITION: Stable. INDICATION FOR PROCEDURE: The patient is a 78-year-old female who has been having some rectal bleeding and needed a workup. FINDINGS: The patient had some diverticula in the cecum. She had small areas. There was bleeding from the serosa. The mucosa did not see any obvious spots to cauterize or AVMs may just been from her NSAID intake. PROCEDURE NOTE: After informed consent was obtained, the patient was brought to the endoscopy suite, placed in the bed left lateral decubitus position. She was administered IV sedation by the AUTOMOTIVE GLAZIER who monitored her vitals the entire time, heart rate, blood pressure and pulse ox and the scope was inserted, pushed in to about [address] in noted diverticula, took picture of this and then once we got into the cecum and ascending colon, there were areas of just bleeding from the mucosa, did not really look like AVMs, did not see anything obvious just very mild oozing, able to take a picture of appendiceal orifice, noted the ileocecal valve. Elected not to cauterize because it was just too much and all surfaces of the mucosa and was very minimal may have also been a prep artifact, pulled the scope out looking circumferentially at the mohamud looking the cecum, up the ascending colon to the hepatic flexure, down the transverse colon, the splenic flexure, into the descending colon down in the sigmoid and finally into the rectum, retroflexed the rectal vault, saw some grade II internal hemorrhoids, took a picture of this and then removed the scope. The patient tolerated the procedure, recovered in endoscopy suite. Job ID: [id number] DocumentID: [id number] Dictated Date: 06/07/2019 17:47:27 Court Usher Date: 06/07/2019 21:51:23 Dictated By: GORDON MENESES DO
== END 2019-06-07 11:30 | disposition home or self-care (01) ==
LOC: ENDO 08:01
PROVIDERS: ATTEND Surgery
DX: K57.31 Diverticulosis of large intestine without perforation or abscess with bleeding (principal); K64.8 Other hemorrhoids; K62.5 Hemorrhage of anus and rectum; K21.9 Gastro-esophageal reflux disease without esophagitis; I10 Essential (primary) hypertension; M19.90 Unspecified osteoarthritis, unspecified site; F32.9 Major depressive disorder, single episode, unspecified; F41.9 Anxiety disorder, unspecified; E11.9 Type 2 diabetes mellitus without complications; Z79.84 Long term (current) use of oral hypoglycemic drugs; Z83.3 Family history of diabetes mellitus; Z80.0 Family history of malignant neoplasm of digestive organs; Z80.1 Family history of malignant neoplasm of trachea, bronchus and lung; Z90.710 Acquired absence of both cervix and uterus; Z79.899 Other long term (current) drug therapy
CPT/HCPCS: 82962

== ENCOUNTER → 2020-01-03 | Outpatient (CLI) | payer MEDICARE ==
[~2020-01-03] MED LIST changes: -GLIM4TAB PO; +GLIM4TAB5 PO; -OMEP20CA13 PO; +OMEP20CA18 PO
--- NOTE | 2020-01-03 11:07 | Diagnostic Imaging Report ---
EXAMINATION: Chest, 2 views. HISTORY: Multiple falls. Rib pain. COMPARISON: Chest radiograph on 09/16/2018. FINDINGS: The lung volumes are normal. No focal consolidation is seen. No large pleural effusion or pneumothorax is seen. The cardiomediastinal silhouette is normal in size and contour. No acute osseous abnormality is seen. IMPRESSION: No acute pleuroparenchymal process. Dictated by: Dictated on workstation # [id number]
--- NOTE | 2020-01-03 11:07 | Diagnostic Imaging Report ---
INDICATION: Fell several times in the last few weeks. Last Friday fell onto the left shoulder with left shoulder pain. FINDINGS: Four views of the left shoulder demonstrate minimal degenerative changes of the acromioclavicular joint. No fracture or dislocation is present. IMPRESSION: There are no acute findings. Dictated by: Dictated on workstation # [id number]
--- NOTE | 2020-01-03 11:08 | Diagnostic Imaging Report ---
INDICATION: Pain, fall. COMPARISON: Imaging from the same date. TECHNIQUE: Two radiographs of the left humerus dated 01/03/2020. FINDINGS: No acute fracture or dislocation. No destructive osseous process. No suspicious radiopaque foreign body. IMPRESSION: No acute osseous abnormality. Dictated by: Dictated on workstation # [id number]
--- NOTE | 2020-01-03 11:14 | Diagnostic Imaging Report ---
EXAM: RIBS, LEFT 2-3 VIEWS INDICATION: Fall. Left chest wall pain. COMPARISON: Chest radiograph from 09/16/2018. FINDINGS: Exam is mildly limited by demineralization. Mildly angulated left anterolateral fifth rib fracture. There may be sixth and seventh left anterolateral rib fractures as well. Mild atelectasis in the left lung base. IMPRESSION: Acute-appearing left fifth anterolateral rib fracture. There may be sixth and seventh left rib fractures as well. Examination is limited by demineralization. Dictated by: Dictated on workstation # [id number]
== END ==
LOC: RAD 10:10
PROVIDERS: ATTEND Nurse Practitioner Family
DX: S22.32XA Fracture of one rib, left side, initial encounter for closed fracture (principal); M25.512 Pain in left shoulder; W19.XXXA Unspecified fall, initial encounter
CPT/HCPCS: 71046; 71100; 73030; 73060

== ENCOUNTER 2021-05-21 07:19 | Outpatient (CLI) | payer MEDICARE ==
[~2021-05-21] VITALS: Ht 157.5 cm; Wt 61.3 kg
[~2021-05-21 07:19] MED LIST changes: +ALPR.25T PO; -ALPR0.254 PO; +AMLO-250 PO; -AMLO5TAB9 PO; +ASPI-1238 PO; -ASPI-983 PO; -PANT40TA3 PO; +PANT40TA52 PO; +SERT-414 PO; -SERT100T8 PO
[2021-05-21] MEDS ORDERED: VNL75T PO (10:56)
[2021-05-21] MEDS ORDERED: ARIP5TAB57 PO (10:56)
[2021-05-21] MEDS ORDERED: METF-399 PO (10:56)
[2021-05-21] MEDS ORDERED: BUSP5TAB59 PO (10:56)
[2021-05-21] MEDS ORDERED: BACL10TA PO (10:56)
[2021-05-21] MEDS ORDERED: METF-397 PO (10:56)
== END 2021-05-21 11:01 ==
LOC: PREOP 07:19
PROVIDERS: ATTEND Specialist
DX: Z01.818 Encounter for other preprocedural examination (principal)

== ENCOUNTER 2021-05-25 06:29 | Day surgery (SDC) | payer MEDICARE ==
[~2021-05-25] VITALS: Ht 157.5 cm; Wt 61.3 kg
[~2021-05-25 06:29] MED LIST changes: +ARIP5TAB57 PO; +BACL10TA PO; +METF-397 PO; +VNL75T PO
[2021-05-25] MEDS: TETRACAINE 0.5% OPHTH SOLN 4 ML BTL (SINGLE DOSE ONLY) OU PRN ×4 (06:43→07:00)
[2021-05-25] MEDS ORDERED: MOXIFLOXACIN OPHTH SOLN 5 MG/ML 0.3 ML SYRINGE OP ONE (06:45)
[2021-05-25] MEDS ORDERED: POVIDONE (BETADINE) OPHTH SOLN 5% 30 ML OP ONE (06:45)
[2021-05-25] MEDS ORDERED: LIDOCAINE PF 1% 2 ML VIAL IR PRN (06:45)
[2021-05-25] MEDS ORDERED: TIMOLOL MALEATE 0.5% 5 ML (TIMOPTIC) BTL OU PRN (06:45)
[2021-05-25] MEDS: TROPICAMIDE 1% OPH SOLN (MYDRIACYL) 15 ML BTL OP SCH ×3 (06:50→07:00)
[2021-05-25] MEDS: PHENYLEPHRINE 10% OPHTH (NEO-SYN) 5 ML BTL OU SCH ×3 (06:50→07:00)
[2021-05-25 06:51] VITALS: BP 162/83
[2021-05-25] MEDS ORDERED: MIDAZOLAM 2 MG/2 ML (VERSED) VIAL ONE (07:30)
--- NOTE | 2021-05-25 07:38 | Ophthalmologist Pre-Op Note ---
Pre-Operative Progress Note H&P Reviewed The H&P was reviewed, patient examined and no changes noted. Date H&P Reviewed: May 25, 2021 Time H&P Reviewed: 07:37 Pre-Op Dx Cataract, Right Eye CASSIA BAKER MD May 25, 2021 07:38
--- NOTE | 2021-05-25 07:58 | Ophthalmology Operative Report ---
Cataract removal/placement IOL PREOPERATIVE DIAGNOSIS: Cataract Right Eye POSTOPERATIVE DIAGNOSIS: Cataract Right Eye PROCEDURE: Cataract removal and placement of posterior chamber implant, right eye SURGEON: Shiva Baker ANESTHESIA: Topical with sedation COMPLICATIONS: None ESTIMATED BLOOD LOSS: Minimal DESCRIPTION OF PROCEDURE: After proper informed consent was obtained, the patient, a 80 female, was taken to the Operating Room and the right eye was anesthetized with tetracaine. The right eye was then prepped and draped in the usual manner. A wire lid speculum was placed. A paracentesis was made at the left hand position. Preservative free lidocaine was injected into the anterior chamber followed by viscoelastic. A clear corneal incision was made in the temporal position. A capsulorrhexis was preformed and the central nuclear and cortical material were removed. The posterior capsule was polished and Von 22.5 AU00T0 IOL was placed into the capsular bag. The residual viscoelastic was aspirated and balanced saline solution was injected into the anterior chamber. Moxifloxacin was injected into the anterior chamber. The wound was checked and found to be water tight. The patient tolerated the procedure well without complications. SHIVA BAKER MD May 25, 2021 07:58
[2021-05-25] MEDS ORDERED: acetaZOLAMIDE ER 500 MG CAP (DIAMOX SEQUELS) PO ONE (08:00)
[2021-05-25 08:03] VITALS: BP 134/79
--- NOTE | 2021-05-25 13:51 | Anesthesia-General Post-Op ---
MAC Patient Condition Mental Status/LOC: Same as Preop Cardiovascular: Satisfactory Nausea/Vomiting: Absent Respiratory: Satisfactory Pain: Controlled Complications: Absent Post Op Complications Complications None Follow Up Care/Instructions Patient Instructions None needed. Anesthesiology Discharge Order Discharge Order Patient is doing well, no complaints, stable vital signs, no apparent adverse anesthesia problems. No complications reported per nursing. RUSTAM BRYAN CRNA May 25, 2021 13:51
== END 2021-05-25 08:04 ==
LOC: SDC 06:29
PROVIDERS: ATTEND Specialist
DX: E11.36 Type 2 diabetes mellitus with diabetic cataract (principal); H25.11 Age-related nuclear cataract, right eye; I10 Essential (primary) hypertension; F41.9 Anxiety disorder, unspecified; Z79.84 Long term (current) use of oral hypoglycemic drugs; Z79.899 Other long term (current) drug therapy
CPT/HCPCS: 66984; 82947; V2632

== ENCOUNTER 2021-06-08 06:05 | Day surgery (SDC) | payer MEDICARE ==
[~2021-06-08] VITALS: Ht 157.5 cm; Wt 61.3 kg
[2021-06-08 06:15] VITALS: BP 123/71
[2021-06-08] MEDS ORDERED: MOXIFLOXACIN OPHTH SOLN 5 MG/ML 0.3 ML SYRINGE OP ONE (06:15)
[2021-06-08] MEDS ORDERED: LIDOCAINE PF 1% 2 ML VIAL IR PRN (06:15)
[2021-06-08] MEDS ORDERED: POVIDONE (BETADINE) OPHTH SOLN 5% 30 ML OP ONE (06:15)
[2021-06-08] MEDS ORDERED: TIMOLOL MALEATE 0.5% 5 ML (TIMOPTIC) BTL OU PRN (06:15)
[2021-06-08] MEDS: TETRACAINE 0.5% OPHTH SOLN 4 ML BTL (SINGLE DOSE ONLY) OU PRN ×4 (06:16→06:35)
[2021-06-08] MEDS: PHENYLEPHRINE 10% OPHTH (NEO-SYN) 5 ML BTL OU SCH ×3 (06:25→06:35)
[2021-06-08] MEDS: TROPICAMIDE 1% OPH SOLN (MYDRIACYL) 15 ML BTL OP SCH ×3 (06:25→06:36)
[2021-06-08] MEDS ORDERED: MIDAZOLAM 2 MG/2 ML (VERSED) VIAL ONE (07:10)
--- NOTE | 2021-06-08 07:18 | Ophthalmologist Pre-Op Note ---
Pre-Operative Progress Note H&P Reviewed The H&P was reviewed, patient examined and no changes noted. Date H&P Reviewed: Jun 08, 2021 Time H&P Reviewed: 07:17 Pre-Op Dx Cataract, Left Eye CASSIA BAKER MD Jun 08, 2021 07:17
--- NOTE | 2021-06-08 07:41 | Ophthalmology Operative Report ---
Cataract removal/placement IOL PREOPERATIVE DIAGNOSIS: Cataract Left Eye POSTOPERATIVE DIAGNOSIS: Cataract Left Eye PROCEDURE: Cataract removal and placement of posterior chamber implant, left eye SURGEON: Shiva Baker ANESTHESIA: Topical with sedation COMPLICATIONS: None ESTIMATED BLOOD LOSS: Minimal DESCRIPTION OF PROCEDURE: After proper informed consent was obtained, the patient, a 80 female, was taken to the Operating Room and the left eye was anesthetized with tetracaine. The left eye was then prepped and draped in the usual manner. A wire lid speculum was placed. A paracentesis was made at the left hand position. Preservative free lidocaine was injected into the anterior chamber followed by viscoelastic. A clear corneal incision was made in the temporal position. A capsulorrhexis was preformed and the central nuclear and cortical material were removed. The posterior capsule was polished and an Von 21.5 AU00T0 was placed into the capsular bag. The residual viscoelastic was aspirated and balanced saline solution was injected into the anterior chamber. Moxifloxacin was injected into the anterior chamber. The wound was checked and found to be water tight. The patient tolerated the procedure well without complications. SHIVA BAKER MD Jun 08, 2021 07:41
[2021-06-08 07:49] VITALS: BP 148/74
[2021-06-08] MEDS ORDERED: acetaZOLAMIDE ER 500 MG CAP (DIAMOX SEQUELS) PO ONE (08:00)
--- NOTE | 2021-06-08 13:58 | Anesthesia-General Post-Op ---
MAC Patient Condition Mental Status/LOC: Same as Preop Cardiovascular: Satisfactory Nausea/Vomiting: Absent Respiratory: Satisfactory Pain: Controlled Complications: Absent Post Op Complications Complications None Follow Up Care/Instructions Patient Instructions None needed. Anesthesiology Discharge Order Discharge Order Patient was seen this morning after the procedure and she was doing well, no complaints, stable vital signs, no apparent adverse anesthesia problems. MARIAMA MATOS DO Jun 08, 2021 13:58
== END 2021-06-08 07:49 | disposition home or self-care (01) ==
LOC: SDC 06:05
PROVIDERS: ATTEND Specialist
DX: E11.36 Type 2 diabetes mellitus with diabetic cataract (principal); H25.12 Age-related nuclear cataract, left eye; I10 Essential (primary) hypertension; F41.9 Anxiety disorder, unspecified; Z79.84 Long term (current) use of oral hypoglycemic drugs; Z79.899 Other long term (current) drug therapy; Z83.3 Family history of diabetes mellitus
CPT/HCPCS: 66984; V2632

== ENCOUNTER → 2021-10-23 | Outpatient (CLI) | payer MEDICARE ==
--- NOTE | 2021-10-23 12:31 | Diagnostic Imaging Report ---
PROCEDURE: CT head without contrast. TECHNIQUE: Multiple contiguous axial images were obtained through the brain without the use of intravenous contrast. Auto Exposure Controls were utilized during the CT exam to meet ALARA standards for radiation dose reduction. INDICATION: Memory loss and tremor. CT HEAD: CT images of the head were obtained. FINDINGS: Ventricles and sulci are within normal limits for size. There is no intracranial hemorrhage identified. There is no abnormal mass effect or shift of midline structures. Low-density deep white matter of both cerebral hemispheres is again identified. IMPRESSION: Stable chronic white matter findings without CT evidence of acute intracranial abnormality. Dictated by: Dictated on workstation # [id number]
== END ==
LOC: RAD 12:15
PROVIDERS: ATTEND Family Medicine
DX: R90.82 White matter disease, unspecified (principal); R41.3 Other amnesia; R25.1 Tremor, unspecified
CPT/HCPCS: 70450

== ENCOUNTER 2022-01-24 08:50 | Outpatient (CLI) | payer MEDICARE ==
[~2022-01-24] VITALS: Ht 157.5 cm; Wt 55.2 kg
[2022-01-24] MEDS ORDERED: CARB-131 PO (14:20)
[2022-01-24] MEDS ORDERED: BUSP10TA95 PO (14:54)
[2022-01-24] MEDS ORDERED: MELO7.5T46 PO (14:54)
[2022-01-24] MEDS ORDERED: ARIP10TA55 PO (14:54)
[2022-01-24] MEDS ORDERED: GLIM2TAB4 PO (14:54)
== END 2022-01-24 14:55 | disposition home or self-care (01) ==
LOC: PREOP 08:50
PROVIDERS: ATTEND Surgery
DX: Z01.818 Encounter for other preprocedural examination (principal)

== ENCOUNTER 2022-02-04 08:50 | Day surgery (SDC) | payer MEDICARE ==
[~2022-02-04] VITALS: Ht 157.5 cm; Wt 55.2 kg
[~2022-02-04 08:50] MED LIST changes: +ARIP10TA55 PO; +BUSP10TA95 PO; +CARB-131 PO; +GLIM2TAB4 PO
[2022-02-04] MEDS ORDERED: LACTATED RINGERS 1,000 ML IV STA (09:10)
[2022-02-04] MEDS ORDERED: LACTATED RINGERS 1,000 ML IV ONE (09:22)
[2022-02-04] MEDS ORDERED: CHOL1LIQ MC (09:45)
[2022-02-04] MEDS ORDERED: MECO10005 PO (09:45)
[2022-02-04 09:48] VITALS: BP 113/86
--- NOTE | 2022-02-04 10:01 | Progress Note-Pre Operative ---
Pre-Operative Progress Note H&P Reviewed The H&P was reviewed, patient examined and no changes noted. Time Seen by Provider: 09:58 Date H&P Reviewed: February 04, 2022 Time H&P Reviewed: 09:58 Pre-Operative Diagnosis: rectal bleed RAJANI HESTER DO February 04, 2022 10:01
[2022-02-04] MEDS ORDERED: PROPOFOL INJECTION 50 ML IV ONE (10:37)
[2022-02-04 11:05] VITALS: BP 125/67
--- NOTE | 2022-02-04 11:08 | Progress Note-Post Operative ---
Post-Operative Progess Note Surgeon (s)/Tool Grinder Operator (s) Surgeon RAJANI HESTER DO Tool Grinder Operator: none Pre-Operative Diagnosis rectal bleed Post-Operative Diagnosis Polyps Diverticula int and ext hemorrhoids Procedure & Operative Findings Date of Procedure 02/04/22 Procedure Performed/Findings Colon with cold bx PROCEDURE NOTE: After informed consent was obtained, the patient was brought to the endoscopy suite, placed in bed in left lateral decubitus position. She was administered IV sedation by the [employer]ILY [employer] who then monitored her vitals the entire time, heart rate, blood pressure and pulse ox and the scope was inserted, pushed all the way to about 130 cm and pushed into the cecum, took a picture of appendiceal orifice and then slowly withdrew the scope insufflating to look circumferentially at the mohamud starting in the cecum and up the ascending colon; where I found a small polyp and elected to do a cold biopsy. Continue up to the hepatic flexure, then down the transverse colon, to the splenic flexure and into the descending colon. Found another polyp here and did another cold biopsy. She had diverticula throughout the colon, but the largest and most were found on the left side of colon. Down into the sigmoid and then into the rectal vault and retroflexed the scope. Took picture of the large internal hemorrhoids and then picture of some prolapse of rectum and external hemorrhoids. The patient tolerated the procedure. She was recovered in endoscopy suite. Recommended for repeat colonoscopy in 5 years. Anesthesia Type IV sedation by [employer] Estimated Blood Loss Estimated blood loss (mL): scant Specimens/Packing Specimens Removed asc colon polyp desc colon polyp RAJANI HESTER DO February 04, 2022 11:08
--- NOTE | 2022-02-04 11:09 | Endoscopy Discharge Instruct ---
Endo Procedure/Findings Findings 1.: Polyp 2.: Diverticulosis 3.: Internal Hemorrhoids 4.: Other Findings (Mild prolapse and external hemorrhoids) Discharge Instructions - Activity: You might feel a little sleepy until tomorrow. This is due to the medicine you received to relax you. Until tomorrow, you should: NOT drive a car, operate machinery or power tools. NOT drink any alcoholic beverages. NOT make any important decisions or sign importortant papers. Do not return to work until tomorrow, unless otherwise instructed. Resume previous activities tomorrow. Diet: Start by taking liquids. If you tolerate liquids, advance to solid food. 1.: Colonscopy in 5 years Notify Physician - If you experience excessive bleeding, unusual abdominal pain, fever, or chest pain, contact your doctor immediately. RAJANI HESTER DO February 04, 2022 11:09
[2022-02-04 11:10] VITALS: BP 126/70
[2022-02-04 11:40] VITALS: BP 107/90
[2022-02-04 12:27] VITALS: BP 107/90
--- NOTE | 2022-02-04 13:09 | Anesthesia-General Post-Op ---
MAC Patient Condition Mental Status/LOC: Same as Preop Cardiovascular: Satisfactory Nausea/Vomiting: Absent Respiratory: Satisfactory Pain: Controlled Complications: Absent Post Op Complications Complications None Follow Up Care/Instructions Patient Instructions None needed. Anesthesiology Discharge Order Discharge Order Patient is doing well, no complaints, stable vital signs, no apparent adverse anesthesia problems. No complications reported per nursing. RUSTAM BRYAN CRNA February 04, 2022 13:09
== END 2022-02-04 12:28 | disposition home or self-care (01) ==
LOC: ENDO 08:50
PROVIDERS: ATTEND Surgery
DX: K63.5 Polyp of colon (principal); K57.31 Diverticulosis of large intestine without perforation or abscess with bleeding; K64.8 Other hemorrhoids; K64.4 Residual hemorrhoidal skin tags; K62.3 Rectal prolapse

== ENCOUNTER → 2022-08-06 | Outpatient (CLI) | payer MEDICARE ==
[~2022-08-06] MED LIST changes: -CARB-131 PO; +CHOL1LIQ MC; +MECO10005 PO; +[UNRECOGNIZED DRUG - CODE] PO
--- NOTE | 2022-08-06 09:12 | Diagnostic Imaging Report ---
INDICATION: Postmenopausal state. COMPARISON: 12/26/2016 FINDINGS: AP Spine L2-L4: [BMD (g/cm2): 1.183] [T-Score: -0.1] [Z-Score: 2.0] [BMD Previous: 1.201] [BMD % Change: -1.5] LT Hip Neck: [BMD (g/cm2): 0.458] [T-Score: -4.0] [Z-Score: -1.5] LT Hip Total: [BMD (g/cm2):0.580] [T-Score:-3.4] [Z-Score: -1.1] [BMD Previous: 0.701] [BMD % Change: -17.3]* RT Hip Neck: [BMD (g/cm2):0.212] [T-Score:-3.8] [Z-Score:-1.3] RT Hip Total: [BMD (g/cm2):0.550] [T-score:-3.6] [Z-Score:-1.3] [BMD Previous:0.664] [BMD % Change:-17.2]* *Indicates significant change from prior examination based on 95% confidence level. World Health Organization criteria for BMD interpretation classify patients as Normal (T-score at or above -1.0), Osteopenic (T-score between -1.0 and -2.5) or Osteoporotic (T-score at or below -2.5). LIMITATIONS AND MODIFICATION: None. IMPRESSION: 1. Osteoporosis. 2. Bone mineral density has decreased by a statistically significant amount, as detailed above. 3. See below National Osteoporosis Foundation guidelines on when to potentially initiate pharmacologic therapy. Based on the National Osteoporosis Foundation Guidelines, pharmacologic treatment should be initiated in any of the following, unless clinical conditions suggest otherwise: * Any patient with prior fragility fracture of the hip or vertebrae. A spine fracture indicates 5X risk for subsequent spine fracture and 2X risk for subsequent hip fracture. * Osteoporosis (T-score <-2.5). * Postmenopausal women and men age 50 and older with low bone mass/osteopenia (T-score between -1.0 and -2.5) by DXA and 10-year major osteoporotic fracture greater than 20% or a 10-year probability of hip fracture greater than 3%. These fracture risks are supplied above in the FRAX score, if applicable. * Clinician judgement and/or patient preferences may indicate treatment for people with 10-year fracture probabilities above or below these levels. Dictated by: Dictated on workstation # [id number]
== END ==
LOC: RAD 08:30
PROVIDERS: ATTEND Nurse Practitioner Family
DX: M81.0 Age-related osteoporosis without current pathological fracture (principal); Z78.0 Asymptomatic menopausal state
CPT/HCPCS: 77080

== ENCOUNTER 2023-05-01 19:04 | Inpatient (IN) | payer MEDICARE ==
[2023-05-01] VITALS (7 sets, daily range): BP systolic 102–141; BP diastolic 52–119
[~2023-05-01] VITALS: Ht 157.2 cm; Wt 58.4 kg
[~2023-05-01 19:04] MED LIST changes: -LOSA100T57 PO; +LOSA100T58 PO
[2023-05-01] MEDS ORDERED: ASPIRIN 81 MG CHEWABLE TABLET PO ONE (19:15)
--- NOTE | 2023-05-01 19:29 | ED General ---
General Chief Complaint: General Problems/Pain Stated Complaint: DIZZY/VOMITING/CONFUSED/IRR HEART RATE Source of Information: Patient, Family (SISTER) Exam Limitations: Other (BOTH PT AND SISTER ARE EXTREMELY POOR AND DIFFICULT HISTORIANS) History of Present Illness Date Seen by Provider: May 01, 2023 Time Seen by Provider: 19:10 Initial Comments PT ARRIVES VIA POV FROM HOME WITH SISTER FOR THE LAST 2 DAYS PT HAS FELT WEAK. SYMPTOMS NO DIFFERENT TONIGHT. HAS NOT SOUGHT CARE UNTIL TONIGHT. PT'S ONLY COMPLAINT HERE IS BEING COLD. YESTERDAY SHE WAS NOT ABLE TO STAND SOME NIGHT THIS WEEK PT WOKE UP WITH VOMIT ALL OVER THE BED AND HAD BEEN INCONTINENT OF STOOL. SHE DOES NOT REMEMBER WHEN THIS HAPPENED. SHE IS NOT NAUSEATED NOW NO CHEST PAIN AT ANY TIME NO SHORTNESS OF BREATH AT ANY TIME NO ABDOMINAL PAIN AT ANY TIME NO URINARY SYMPTOMS HAS NOT CHECKED HER TEMPERATURE NO COUGH OR URI SYMPTOMS PT WAS IN [place] LAST WEEK, AND SHE DID FALL AND LANDED ON HER FACE ON [place]ET[address]. SHE DENIES LOSS OF CONSCIOUSNESS AND SHE DID NOT SEEK CARE. SHE DENIES HEADACHE OR FACE PAIN. SHE HAS A FADED BRUISE TO HER LEFT CHEEK PT STATES SHE DOESN'T HAVE ANY MEDICAL PROBLEMS AT ALL SHE LATER STATES SHE IS DIABETIC, BUT HAS NOT CHECKED HER BLOOD SUGAR PT DOES NOT KNOW WHAT MEDICATION SHE TAKES PT IS NORMALLY VERY INDEPENDENT PCP: DR. FLOWERS Allergies and Home Medications Allergies Coded Allergies: No Known Drug Allergies (Verified , 09/18/07) Patient Home Medication List Home Medication List Reviewed: Yes Amlodipine Besylate (Amlodipine Besylate) 5 Mg Tablet, 5 MG PO DAILY, (Reported) Entered as Reported by: MADHURI SIMMONS on 10/01/18 1324 Last Action: Reviewed Calcium Carbonate/Vitamin D3 (Calcium 600 mg-D3 20 Mcg Cplt) 600 Mg Calcium-20 Mcg (800 Unit) Tablet, 1 EACH PO DAILY, (Reported) Entered as Reported by: NOE MORENO on 05/02/23 1223 Last Action: Reviewed Calcium Polycarbophil (Fiber Tabs) 625 Mg Tablet, 625 MG PO 1800, (Reported) Entered as Reported by: NOE MORENO on 05/02/233 Last Action: Reviewed Cholecalciferol (Vitamin D3) (Vitamin D3) 50 Mcg (2000 Unit) Capsule, 50 MCG PO DAILY, (Reported) Entered as Reported by: NOE MORENO on 05/02/23 1223 Last Action: Reviewed Cyanocobalamin (Vitamin B-12) (Vitamin B-12) 1,000 Mcg Tab.subl, 1,000 MCG SL DAILY, (Reported) Entered as Reported by: NOE MORENO on 05/02/23 1236 Last Action: Reviewed Escitalopram Oxalate (Escitalopram Oxalate) 10 Mg Tablet, 10 MG PO DAILY, (R eported) Entered as Reported by: NOE MORENO on 05/02/23 1223 Last Action: Reviewed Glimepiride (Glimepiride) 2 Mg Tablet, 2 MG PO DAILY, (Reported) Entered as Reported by: LAURE PATEL on 01/24/22 1454 Last Action: Reviewed Losartan Potassium (Losartan Potassium) 100 Mg Tablet, 100 MG PO 1800, (Repor ifrah) Entered as Reported by: MADHURI SIMMONS on 10/01/18 1324 Last Action: Reviewed Metformin HCl (Metformin HCl) 1,000 Mg Tablet, 1,000 MG PO BID, (Reported) Entered as Reported by: LAURE PATEL on 05/21/21 1056 Last Action: Reviewed [Urinary Tract Health] , 1 EA PO 1800, (Reported) Entered as Reported by: NOE MORENO on 05/02/23 122 Last Action: Reviewed Discontinued Medications Buspirone HCl (Buspirone HCl) 10 Mg Tablet, 10 MG PO BID, (Reported) Discontinued Reason: No Longer Taking Entered as Reported by: LAURE PATEL on 01/24/22 1454 Last Action: Discontinued Carbidopa/Levodopa/Entacapone (Llamtthzj-Xewfnomd-Vgkg 200 mg) 50 Mg-200 Mg-200 Mg Tablet, 1 EACH PO BID, (Reported) Discontinued Reason: No Longer Taking Entered as Reported by: LAURE PATEL on 01/24/22 1420 Last Action: Discontinued Cholecalciferol (Vitamin D3) (Vitamin D3) 1 Million Unit/Gram Liquid, 1 ML MC DAILY, (Reported) Discontinued Reason: Prescription changed Entered as Reported by: RD MASON on 02/04/22 0963 Mecobalamin (B12 Active) 1,000 Mcg Tab.chew, 1,000 MCG PO DAILY, (Reported) Discontinued Reason: Prescription changed Entered as Reported by: RD MASON on 02/04/22 0945 Last Action: Last Taken Edited Review of Systems Review of Systems Constitutional: see HPI, malaise, weakness EENTM: no symptoms reported Respiratory: no symptoms reported; No cough, No short of breath Cardiovascular: no symptoms reported; No chest pain, No edema, No palpitations, No syncope, No vascular heart diseas Gastrointestinal: see HPI; No abdominal pain; diarrhea, vomiting Genitourinary: no symptoms reported Musculoskeletal: no symptoms reported Skin: no symptoms reported Psychiatric/Neurological: No Symptoms Reported; Denies Headache Hematologic/Lymphatic: No Symptoms Reported Immunological/Allergic: no symptoms reported Past Idilgnv-Mntrdt-Nemlxz Hx Patient Social History Tobacco Use?: No Substance use?: No Alcohol Use?: No Immunizations Up To Date Tetanus Booster (TDap): Unknown First/Initial COVID19 Vaccinat: yes Second COVID19 Vaccination Kyle: yes Third COVID19 Vaccination Date: yes Seasonal Allergies Seasonal Allergies: No Past Medical History Surgeries: Yes (PARTIAL HYSTERECTOMY ; CATARACTS) Cardiac, Eye Surgery, Hysterectomy Respiratory: No Cardiac: Yes Hypertension Neurological: Yes Parkinson's Disease Reproductive Disorders: No Genitourinary: Yes (STRESS INCONTINENCE) Gastrointestinal: Yes (rectal bleeding) Gastroesophageal Reflux Musculoskeletal: No Endocrine: Yes Diabetes, Non-Insulin dep HEENT: Yes (GLASSES, cataracts removed) Cataract Cancer: No Psychosocial: Yes Anxiety, Depression Integumentary: No Blood Disorders: No Adverse Reaction/Blood Tranf: No Physical Exam Vital Signs Vital Signs - First Documented 05/01/23 05/01/23 19:12 22:14 Temp 36.9 Pulse 98 Resp 24 B/P (MAP) 112/44 (66) Pulse Ox 98 O2 Delivery Room Air Capillary Refill : Height, Weight, BMI Height: 5'1.00" Weight: 135lbs. 0.0oz. 61.216397ck; 22.25 BMI Method:Stated General Appearance: No Apparent Distress, WD/WN HEENT: PERRL/EOMI, TMs Normal, Normal ENT Inspection, Pharynx Normal, Other (FADED BRUISE TO LEFT CHEEK. NON-TENDER. 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 Norm as Tested Skin: Normal Color, Warm/Dry Focused Exam Sepsis Stage: Sepsis Possible Source: Genitouriary Lactate Level 05/01/23 20:05: Lactic Acid Level 2.34*H 05/01/23 22:07: Lactic Acid Level 1.47 Time of Focused Exam: 21:00 Respiratory: Normal Breath Sounds, No Accessory Muscle Use, No Respiratory Distress Cardiovascular: Regular Rate, Rhythm, No Murmur Capillary Refill: Less Than 3 Seconds Skin: normal color, warm/dry Lactic Acid Level Laboratory Tests Test 05/01/23 20:05 05/01/23 22:07 Lactic Acid Level 2.34 MMOL/L (0.50-2.00) *H 1.47 MMOL/L (0.50-2.00) Within 3hrs of presentation: Admin fluids, Admin ABX, Blood cultures prior to ABX's, Focus exam, Lactate level Progress/Results/Core Measures Suspected Sepsis SIRS Temperature: Pulse: Respiratory Rate: Laboratory Tests 05/01/23 19:23: White Blood Count 18.9H Blood Pressure / Mean: 05/01/23 20:05: Lactic Acid Level 2.34*H 05/01/23 22:07: Lactic Acid Level 1.47 Laboratory Tests 05/01/23 19:23: Creatinine 1.75H, INR Comment 1.1, Platelet Count 180, Total Bilirubin 1.3H Results/Orders Lab Results Laboratory Tests Test 05/01/23 19:23 05/01/23 19:38 05/01/23 20:05 05/01/23 20:31 Range/Units White Blood Count 18.9 H 4.3-11.0 10^3/uL Red Blood Count 4.33 3.80-5.11 10^6/uL Hemoglobin 12.2 11.5-16.0 g/dL Hematocrit 37 35-52 % Mean Corpuscular Volume 85 80-99 fL Mean Corpuscular Hemoglobin 28 25-34 pg Mean Corpuscular Hemoglobin Concent 33 32-36 g/dL Red Cell Distribution Width 12.9 10.0-14.5 % Platelet Count 180 130-400 10^3/uL Mean Platelet Volume 10.0 9.0-12.2 fL Immature Granulocyte % (Auto) 1 % Neutrophils (%) (Auto) 90 H 42-75 % Lymphocytes (%) (Auto) 4 L 12-44 % Monocytes (%) (Auto) 5 0-12 % Eosinophils (%) (Auto) 0 0-10 % Basophils (%) (Auto) 0 0-10 % Neutrophils # (Auto) 17.0 H 1.8-7.8 10^3/uL Lymphocytes # (Auto) 0.8 L 1.0-4.0 10^3/uL Monocytes # (Auto) 0.9 0.0-1.0 10^3/uL Eosinophils # (Auto) 0.0 0.0-0.3 10^3/uL Basophils # (Auto) 0.1 0.0-0.1 10^3/uL Immature Granulocyte # (Auto) 0.1 0.0-0.1 10^3/uL Neutrophils % (Manual) 70 % Lymphocytes % (Manual) 4 % Monocytes % (Manual) 5 % Band Neutrophils 20 % Toxic Granulation 1+ Platelet Estimate ADEQUATE Blood Morphology Comment NORMAL Prothrombin Time 14.5 12.2-14.7 SEC INR Comment 1.1 0.8-1.4 Activated Partial Thromboplast Time 33 24-35 SEC Sodium Level 136 135-145 MMOL/L Potassium Level 4.1 3.6-5.0 MMOL/L Chloride Level 103 98-107 MMOL/L Carbon Dioxide Level 20 L 21-32 MMOL/L Anion Gap 13 5-14 MMOL/L Blood Urea Nitrogen 24 H 7-18 MG/DL Creatinine 1.75 H 0.60-1.30 MG/DL Estimat Glomerular Filtration Rate 29 BUN/Creatinine Ratio 14 Glucose Level 199 H 70-105 MG/DL Calcium Level 10.2 H 8.5-10.1 MG/DL Corrected Calcium 10.2 H 8.5-10.1 MG/DL Magnesium Level 1.6 1.6-2.4 MG/DL Total Bilirubin 1.3 H 0.1-1.0 MG/DL Aspartate Amino Transf (AST/SGOT) 19 5-34 U/L Alanine Aminotransferase (ALT/SGPT) 14 0-55 U/L Alkaline Phosphatase 58 40-136 U/L Total Creatine Kinase 291 H 29-168 U/L Creatine Kinase MB 3.2 <6.6 NG/ML Myoglobin 1033.8 H 10.0-92.0 NG/ML Troponin I 1.232 *H <0.028 NG/ML B-Type Natriuretic Peptide 122.5 H <100.0 PG/ML Total Protein 7.4 6.4-8.2 GM/DL Albumin 4.0 3.2-4.5 GM/DL TSH [place] Testing 2.40 0.35-4.94 UIU/ML Influenza Type A (RT-PCR) Not Detected Not Detecte Influenza Type B (RT-PCR) Not Detected Not Detecte SARS-CoV-2 RNA (RT-PCR) Not Detected Not Detecte Lactic Acid Level 2.34 *H 0.50-2.00 MMOL/L Urine Color YELLOW Urine Clarity CLOUDY Urine pH 5.5 5-9 Urine Specific [place] 1.015 L 1.016-1.022 Urine Protein 3+ H NEGATIVE Urine Glucose (UA) 3+ H NEGATIVE Urine Ketones TRACE H NEGATIVE Urine Nitrite NEGATIVE NEGATIVE Urine Bilirubin NEGATIVE NEGATIVE Urine Urobilinogen 0.2 < = 1.0 MG/DL Urine Leukocyte Esterase 1+ H NEGATIVE Urine RBC (Auto) 2+ H NEGATIVE Urine RBC 2-5 H /HPF Urine WBC >100 H /HPF Urine Crystals NONE /LPF Urine Bacteria LARGE H /HPF Urine Casts NONE /LPF Urine Mucus SMALL H /LPF Urine Culture Indicated CULTURE PENDING Test 05/01/23 22:07 Range/Units Lactic Acid Level 1.47 0.50-2.00 MMOL/L Micro Results Microbiology 05/01/23 Urine Culture - Preliminary, Resulted Escherichia coli 05/01/23 Blood Culture - Preliminary, Resulted Gram Positive Cocci in Cluster Gram Positive Bacillus 1 05/01/23 Blood Culture - Preliminary, Resulted Gram Negative Bacillus 1 My Orders Orders - ELLIS GUTIÉRREZ DO Ekg Tracing (05/01/23 19:10) Ed Iv/Invasive Line Start (05/01/23 19:11) O2 (05/01/23 19:11) Monitor-Rhythm Ecg Trace Only (05/01/23 19:11) Bnp Db (05/01/23 19:11) Cbc With Automated Diff (05/01/23 19:11) Comprehensive Metabolic Panel (05/01/23 19:11) Creatine Kinase (05/01/23 19:11) Creatine Kinase Mb (05/01/23 19:11) Magnesium (05/01/23 19:11) Protime With Inr (05/01/23 19:11) Partial Thromboplastin Time (05/01/23 19:11) Thyroid Analyzer (05/01/23 19:11) Troponin I [place] (05/01/23 19:11) Chest 1 View, Ap/Pa Only (05/01/23 19:11) Myoglobin Serum (05/01/23 19:11) O2 (05/01/23 19:11) Ed Iv/Invasive Line Start (05/01/23 19:11) Aspirin Chewable Tablet (Aspirin Chewabl (05/01/23 19:15) Ct Head/Face/Cervical Wo (05/01/23 19:18) Covid 19 Inhouse Test (05/01/23 19:29) Influenza A And B By Pcr (05/01/23 19:29) Manual Differential (05/01/23:23) Ed Iv/Invasive Line Start (05/01/23 19:52) Lactated Ringers (Lr 1000 Ml Iv Solution (05/01/23 20:00) Ed Iv/Invasive Line Start (05/01/23 19:53) Ns Iv 1000 Ml (Sodium Chloride 0.9%) (05/01/23 20:00) Blood Culture (05/01/23 19:53) Urinalysis (05/01/23 19:53) Urine Culture (05/01/23 19:53) Vital Signs Adult Sepsis Patie Q15M (05/01/23 19:53) Remove Rings In Anticipation O (05/01/23 19:53) Lactic Acid Analyzer (05/01/23 19:53) Cefepime Injection (Cefepime Injection) (05/01/23 20:00) Ekg Tracing (05/01/23 20:05) Catheter(Urinary) Insert & Ass 03,15 (05/01/23 20:19) Lidocaine 2% (Urojet) (Lidocaine 2% (Uro (05/01/23 20:30) Clopidogrel Tablet (Clopidogrel Tablet) (05/01/23 20:45) Metoprolol Succinate (Xl) Tab (Toprol Xl (05/01/23 20:45) Enoxaparin Injection (Enoxaparin Injecti (05/01/23 20:45) Ed Iv/Invasive Line Start (05/01/23 21:23) Ns Iv 1000 Ml (Sodium Chloride 0.9%) (05/01/23 21:30) Ed Admission (Communication) (05/01/23 22:23) Medications Given in ED Vital Signs/I&O 05/01/23 05/01/23 19:12 22:14 Temp 36.9 Pulse 98 90 Resp 24 B/P (MAP) 112/44 (66) 102/69 Pulse Ox 98 96 O2 Delivery Room Air Capillary Refill : Progress Note : Progress Note GIVEN: -IV FLUIDS -ASPIRIN -LOVENOX -PLAVIX -TOPROL XL. HEART RATE IS VARIABLE, FROM 90'S TO 120'S, BUT IS IN SINUS RHYTHM BP ALSO VARIABLE 90'S SYSTOLIC TO 110'S SYSTOLIC RESP RATE 20-24 O2 SATS 97-99% ON ROOM AIR. LABS: -CBC WITH ELEVATED WBC OF 18.9, HGB 12.2, PLT 180,000 -CMP WITH NA 136, K 4.1, CO2 20, BUN 24, CR 1.75, GLU 199, LFT'S UNREMARKABLE -MG 1.6 -MYOGLOBIN 1033.8, CK 291 -TROPONIN 1.232. BNP 122 -PT/PTT/INR 14.5/33/1.1 -LACTIC ACID 2.34 -UA WITH >100 WBC'S, LARGE BACTERIA, 1+ LEUKOCYTES, 2-5 RBC'S, 3+ GLUCOSE, 3+ PROTEIN, TR KETONES EKG WITH BORDERLINE ST SEGMENT ELEVATION INFERIORLY. CHANGED FROM 2018 CXR IS NON-SPECIFIC CT HEAD/MAXILLOFACIALS/CERVICAL SPINE DOES NOT SHOW ACUTE PROCESS NO COMPLAINTS OF ANY KIND DURING ER STAY OTHER THAN BEING COLD. NO DETERIORATION IN PT'S CONDITION DURING ER STAY COMPLEX MANAGEMENT PT APPEARS TO BE SEPTIC FROM UTI, BUT ALSO HAS ELEVATED TROPONIN WITHOUT OVERT ST ELEVATION ON EKG, ADDITIONALLY SHE HAS ACUTE KIDNEY INJURY, COMPLICATED BY UNDERLYING DIABETES AND HTN, WELL FLUCTUATING HEART RATE AND BLOOD PRESSURE. REVIEWED PRIOR RECORDS INCLUDING ER VISITS, ADMITS/H&P'S/CONSULTS/DISCHARGE SUMMARIES, TESTS/PROCEDURES ECG Initial ECG Impression Date: May 01, 2023 Initial ECG Impression Time: 19:16 Initial ECG Rate: 96 Initial ECG Rhythm: Normal Sinus Initial ECG Intervals: Normal Initial ECG Intervals NE 142 QRS 94 QT/QTC 361/418 Initial ECG Comparisson: Changed (CHANGED FROM 2018) Comment BORDERLINE ST SEGMENT ELEVATION INFERIOR LEADS INTERPRETED BY ME EKG : EKG Time: 20:16 Rate: 100 Rhythm: Normal Sinus Intervals: Normal Comment SINUS ARRHYTHMIA BORDERLINE ST SEGMENT ELEVATION INFERIOR LEADS INTERPRETED BY ME Diagnostic Imaging Comments PER RADIOLOGIST REPORTS AT 2 CXR--COMPARISON: 09/16/2018. FINDINGS: Heart size and pulmonary vasculature are normal. There are coarse interstitial opacities within the lungs, unchanged from prior exams. No pleural effusion or pneumothorax. Degenerative changes of the thoracic spine. Osseous structures are otherwise intact. IMPRESSION: Findings suggestive of chronic background lung disease. Superimposed edema or pneumonia could have a similar appearance in the appropriate clinical setting. CT HEAD/MAXILLOFACIALS/CERVICAL SPINE--COMPARISON: 10/23/2021. FINDINGS: CT HEAD: Ventricles and sulci are prominent. 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 There is no evidence of hemorrhage or acute infarct. Calvarium is intact and the visualized paranasal sinuses are clear. IMPRESSION: No evidence of acute intracranial abnormality. CT CERVICAL SPINE: Multiple contiguous axial CT images of the cervical spine were obtained with sagittal and coronal reformatted images produced. The cervical curvature and alignment are within normal limits. The vertebral body heights and disc spaces are maintained without evidence of fracture or subluxation. There is no paraspinous hematoma. There are degenerative findings at the C1-C2 level with diffuse cervical disc space narrowing and endplate spurring. There are probable dominant cystic structures in the upper aspect of both lobes of the thyroid gland. IMPRESSION: No CT evidence of acute cervical spinal abnormality. Cervical degenerative disc disease with dominant low density nodules in the thyroid gland which could be assessed on nonemergent ultrasonography, if indicated. MAXILLOFACIAL CT: Globes are intact. There is no evidence of intraorbital hematoma or gas. There is an old depressed fracture involving the left lamina papyracea. Zygomatic arches are intact. Temporomandibular joints are also intact. There is no evidence of an acute fracture. No focal fluid collection or significant hematoma is identified. IMPRESSION: Old left lamina papyracea fracture without CT evidence of acute maxillofacial injury. Departure Communication (Admissions) 2018--SPOKE WITH DR. LEZAMA. HE WILL SEE PT IN CONSULT, AND ORDERS NOTED. 2028--SPOKE WITH DR. DUVAL, HOSPITALIST FOR DR. FLOWERS'S PATIENTS. ACCEPTS PT FOR ADMIT. SHE WILL DO ADMIT ORDERS. 2223--REPORT TO E-ICU PHYSICIAN. Impression Primary Impression: Non-STEMI (non-ST elevated myocardial infarction) Additional Impressions: Sepsis UTI (urinary tract infection) Acute kidney injury NIDDM HX OF HYPERTENSION Arrhythmia Disposition: ADMITTED INPATIENT Condition: Stable Admissions Decision to Admit Reason: Admit from ER (General) Decision to Admit/Date: May 01, 2023 Time/Decision to Admit Time: 20:20 Departure-Patient Inst. Referrals: JOSEP FLOWERS DO (PCP/Family) Primary Care Physician ELLIS GUTIÉRREZ DO May 01, 2023 19:29
[2023-05-01 19:30] LABS: BASOPHILS # (AUTO) 0.1 10^3/uL (0.0-0.1); BASOPHILS % (AUTO) 0 % (0-10); EOSINOPHILS % (AUTO) 0 % (0-10); HEMATOCRIT 37 % (35-52); HEMOGLOBIN 12.2 g/dL (11.5-16.0); LYMPHOCYTES # (AUTO) 0.8 10^3/uL (1.0-4.0); LYMPHOCYTES % (AUTO) 4 % (12-44); MEAN CORPUSCULAR HEMOGLOBIN 28 pg (25-34); MEAN CORPUSCULAR HGB CONC 33 g/dL (32-36); MEAN CORPUSCULAR VOLUME 85 fL (80-99); MONOCYTES # (AUTO) 0.9 10^3/uL (0.0-1.0); MONOCYTES % (AUTO) 5 % (0-12); NEUTROPHILS % (AUTO) 90 % (42-75); PLATELET COUNT 180 10^3/uL (130-400); WHITE BLOOD COUNT 18.9 10^3/uL (4.3-11.0)
--- NOTE | 2023-05-01 19:42 | Diagnostic Imaging Report ---
PROCEDURE: CT head, face, and cervical spine without contrast. TECHNIQUE: Multiple contiguous axial images were obtained through the head, neck, and facial bones without the use of intravenous contrast. Sagittal and coronal reformations through the cervical spine and facial bones were also performed. Auto Exposure Controls were utilized during the CT exam to meet ALARA standards for radiation dose reduction. INDICATION: Trauma with injuries to head, face and cervical region. COMPARISON: 10/23/2021. FINDINGS: CT HEAD: Ventricles and sulci are prominent. 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 There is no evidence of hemorrhage or acute infarct. Calvarium is intact and the visualized paranasal sinuses are clear. IMPRESSION: No evidence of acute intracranial abnormality. CT CERVICAL SPINE: Multiple contiguous axial CT images of the cervical spine were obtained with sagittal and coronal reformatted images produced. The cervical curvature and alignment are within normal limits. The vertebral body heights and disc spaces are maintained without evidence of fracture or subluxation. There is no paraspinous hematoma. There are degenerative findings at the C1-C2 level with diffuse cervical disc space narrowing and endplate spurring. There are probable dominant cystic structures in the upper aspect of both lobes of the thyroid gland. IMPRESSION: No CT evidence of acute cervical spinal abnormality. Cervical degenerative disc disease with dominant low density nodules in the thyroid gland which could be assessed on nonemergent ultrasonography, if indicated. MAXILLOFACIAL CT: Globes are intact. There is no evidence of intraorbital hematoma or gas. There is an old depressed fracture involving the left lamina papyracea. Zygomatic arches are intact. Temporomandibular joints are also intact. There is no evidence of an acute fracture. No focal fluid collection or significant hematoma is identified. IMPRESSION: Old left lamina papyracea fracture without CT evidence of acute maxillofacial injury. Dictated by: Dictated on workstation # [id number]
[2023-05-01 19:43] LABS: POTASSIUM 4.1 MMOL/L (3.6-5.0)
[2023-05-01 19:44] LABS: CALCIUM 10.2 MG/DL (8.5-10.1); INR 1.1 (0.8-1.4); PROTHROMBIN TIME PATIENT 14.5 SEC (12.2-14.7)
--- NOTE | 2023-05-01 19:44 | Diagnostic Imaging Report ---
EXAMINATION: Chest, 1 view. HISTORY: Chest pain. COMPARISON: 09/16/2018. FINDINGS: Heart size and pulmonary vasculature are normal. There are coarse interstitial opacities within the lungs, unchanged from prior exams. No pleural effusion or pneumothorax. Degenerative changes of the thoracic spine. Osseous structures are otherwise intact. IMPRESSION: Findings suggestive of chronic background lung disease. Superimposed edema or pneumonia could have a similar appearance in the appropriate clinical setting. Dictated by: Dictated on workstation # [id number]
[2023-05-01 19:46] LABS: TOTAL PROTEIN 7.4 GM/DL (6.4-8.2)
[2023-05-01 19:47] LABS: BILIRUBIN,TOTAL 1.3 MG/DL (0.1-1.0)
[2023-05-01 19:49] LABS: CREATININE SERUM 1.75 MG/DL (0.60-1.30)
[2023-05-01 19:52] LABS: MAGNESIUM 1.6 MG/DL (1.6-2.4)
[2023-05-01 20:00] LABS: CREATINE KINASE MB 3.2 NG/ML (<6.6)
[2023-05-01] MEDS ORDERED: NS IV 1000 ML 1,000 ML IV SCH ×2 (20:00→21:30)
[2023-05-01] MEDS ORDERED: CEFEPIME INJECTION 1,000 MG in NS (IVPB) 50 ML 50 ML IV ONE (20:00)
[2023-05-01] MEDS ORDERED: LACTATED RINGERS 1,000 ML IV ONE (20:00)
[2023-05-01 20:12] LABS: TSH (THYROID ANALYZER) 2.4 UIU/ML (0.35-4.94)
[2023-05-01 20:14] LABS: BAND NEUTROPHILS 20 %; LYMPHOCYTES % (MANUAL) 4 %; MONOCYTES % (MANUAL) 5 %; NEUTROPHILS % (MANUAL) 70 %
[2023-05-01 20:15] LABS: PLATELET ESTIMATE ADEQUATE; RBC MORPH NORMAL; TOXIC GRANULATION/VACUOLAZATIO 1+
[2023-05-01] MEDS ORDERED: LIDOCAINE UROJET 2% GEL 10 ML PKG TOP ONE (20:30)
[2023-05-01] MEDS ORDERED: CLOPIDOGREL 300 MG TABLET PO ONE (20:45)
[2023-05-01] MEDS ORDERED: ENOXAPARIN 80 MG/0.8 ML SYRINGE SC ONE (20:45)
[2023-05-01 20:49] LABS: COLOR,URINE YELLOW
[2023-05-01 20:50] LABS: BILIRUBIN,URINE NEGATIVE (NEGATIVE); CLARITY,URINE CLOUDY; GLUCOSE, URINE (UA) 3+ (NEGATIVE); KETONES,URINE TRACE (NEGATIVE); LEUKOCYTE ESTERASE ,URINE 1+ (NEGATIVE); NITRITE,URINE NEGATIVE (NEGATIVE); PH,URINE 5.5 (5-9); PROTEIN,URINE 3+ (NEGATIVE)
[2023-05-01 20:53] LABS: BACTERIA,URINE LARGE /HPF; WBC,URINE >100 /HPF
[2023-05-01] MEDS ORDERED: BISACODYL 10 MG SUPPOSITORY PR PRN (22:45)
[2023-05-01] MEDS ORDERED: CALCIUM CARBONATE 500 MG CHEW TABLET PO PRN (22:45)
[2023-05-01] MEDS ORDERED: diphenhydrAMINE INJ 50 MG/ML VIAL IVP PRN (22:45)
[2023-05-01] MEDS ORDERED: oxyCODONE IMMEDIATE RELEASE 5 MG TABLET PO PRN (22:45)
[2023-05-01] MEDS ORDERED: NITROGLYCERIN 0.4 MG SL TABLETS BTL 25'S SL PRN (22:45)
[2023-05-01] MEDS ORDERED: LACTULOSE SYRUP 10GM/15ML 30ML UDC PO PRN (22:45)
[2023-05-01] MEDS ORDERED: PATIENT MAY USE OWN MEDS, ALL PO SCH (22:45)
[2023-05-01] MEDS ORDERED: MILK OF MAGNESIA 400 MG/5 ML 30 ML UDC PO PRN (22:45)
[2023-05-01] MEDS ORDERED: ANTACID SUSPENSION 30 ML UDC PO PRN (22:45)
[2023-05-01] MEDS ORDERED: NS IV 500 ML 500 ML IV PRN (22:45)
[2023-05-01] MEDS ORDERED: diphenhydrAMINE 25 MG TABLET PO PRN (22:45)
[2023-05-01] MEDS ORDERED: ONDANSETRON 4 MG/2 ML (SDV) Z0FRAN IV PRN (22:45)
[2023-05-01] MEDS ORDERED: ONDANSETRON 4 MG (ZOFRAN) ORAL DISSOLVE TAB PO PRN (22:45)
[2023-05-01] MEDS ORDERED: polyethylene glycoL POWDER 17 GM (MIRALAX) PACK PO PRN (22:45)
[2023-05-01] MEDS ORDERED: MELATONIN 3 MG TABLET PO PRN (22:45)
[2023-05-01] MEDS ORDERED: HYDROmorphone INJECTION 2 MG/ML VIAL IV PRN (22:45)
--- NOTE | 2023-05-01 23:13 | Tele-ICU Progress Note ---
Progress Note 82F with HTN, DM admitted with sepsis, UTI and NSTEMI. She presented with 2 days of weakness and feeling cold, without any specific symptoms. She was found to have leukocytosis of 18.9 with 20% bandemia, initial lactic of 2.3 which improved to 1.47, JOANNE with creat 1.75, CK 291, trop 1.23, myoglobin 1033. She is alert and oriented, denies chest pain. A/P: - sepsis: secondary to urinary source. Cefepime initiated in ED and continued on admission. Cultures pending. Lactic acidosis resolved. HD stable. - troponemia: likely demand ischemia. Therapuetic lovenox already given. Cardiology consulted. Will repeat troponin now. - DM: ISS - JOANNE: likely ATN secondary to sepsis, also noted to have CK elevation. IVF ongoing. Monitor renal function and UOP. Avoid nephrotoxins and hypotension. Patient assessed via real time audiovisual communication device CCT 14 min Focused Exam Lactate Level 05/01/23 20:05: Lactic Acid Level 2.34*H 05/01/23 22:07: Lactic Acid Level 1.47 Height, Weight, BMI Height: 5'1.00" Weight: 135lbs. 0.0oz. 61.182789kt; 23.38 BMI Method:Stated Time of Focused Exam: 21:00 Lactic Acid Level Laboratory Tests Test 05/01/23 20:05 05/01/23 22:07 Lactic Acid Level 2.34 MMOL/L (0.50-2.00) *H 1.47 MMOL/L (0.50-2.00) IMMANUEL DUKES MD May 01, 2023 23:13
[2023-05-01] MEDS ORDERED: RT-ALBUTEROL SULF 2.5 MG/3 ML PRE-MIX VIAL INH PRN (23:15)
[2023-05-01] MEDS: NS IV 1000 ML 1,000 ML IV SCH (23:19)
[2023-05-02] VITALS (11 sets, daily range): BP systolic 50–148; BP diastolic 41–118
[2023-05-02 04:17] LABS: ABG BASE EXCESS -4.9 MMOL/L (-2.5-2.5); ABG OXYGEN SATURATION 97 % (94-100); ABG PCO2 29 MMHG (35-45); ABG PH 7.43 (7.37-7.43); ABG PO2 78 MMHG (79-93); ABG TCO2 19.5 MMOL/L (21.0-31.0); ALLENS TEST YES-POS; INSPIRED O2 ROOM AIR
[2023-05-02 04:18] LABS: PATIENT TEMP 37.1; VENTILATOR NO
[2023-05-02 04:23] LABS: BASOPHILS % (AUTO) 0 % (0-10); EOSINOPHILS % (AUTO) 0 % (0-10); HEMATOCRIT 32 % (35-52); HEMOGLOBIN 10.4 g/dL (11.5-16.0); LYMPHOCYTES # (AUTO) 0.5 10^3/uL (1.0-4.0); LYMPHOCYTES % (AUTO) 5 % (12-44); MEAN CORPUSCULAR HEMOGLOBIN 28 pg (25-34); MEAN CORPUSCULAR HGB CONC 33 g/dL (32-36); MEAN CORPUSCULAR VOLUME 85 fL (80-99); MEAN PLATELET VOLUME 10.6 fL (9.0-12.2); MONOCYTES # (AUTO) 0.7 10^3/uL (0.0-1.0); MONOCYTES % (AUTO) 6 % (0-12); NEUTROPHILS # (AUTO) 9.9 10^3/uL (1.8-7.8); NEUTROPHILS % (AUTO) 89 % (42-75); PLATELET COUNT 128 10^3/uL (130-400); WHITE BLOOD COUNT 11.2 10^3/uL (4.3-11.0)
[2023-05-02 04:45] LABS: ALBUMIN 3.3 GM/DL (3.2-4.5); POTASSIUM 3.3 MMOL/L (3.6-5.0)
[2023-05-02 04:48] LABS: TOTAL PROTEIN 6.1 GM/DL (6.4-8.2)
[2023-05-02 04:49] LABS: BILIRUBIN,TOTAL 1.3 MG/DL (0.1-1.0)
[2023-05-02 04:51] LABS: CREATININE SERUM 1.29 MG/DL (0.60-1.30); PHOSPHORUS 1.1 MG/DL (2.3-4.7)
[2023-05-02 04:54] LABS: MAGNESIUM 1.4 MG/DL (1.6-2.4)
[2023-05-02] MEDS: POTASSIUM CL 10MEQ/50ML IVPB 50 ML IV SCH (05:22)
[2023-05-02] MEDS: MAGNESIUM 1 GM/100 ML IVPB 100 ML IV SCH ×6 (05:22→10:39)
[2023-05-02] MEDS: POTASSIUM CHLORIDE 20 MEQ TABLET PO SCH ×3 (05:22→09:02)
[2023-05-02] MEDS: inSUlin ASPART 1 UNIT/0.01 ML (PER UNIT) SC SCH ×4 (05:23→20:42)
[2023-05-02] MEDS: NS IV 1000 ML 1,000 ML IV SCH ×3 (07:41→23:59)
[2023-05-02] MEDS: CLOPIDOGREL 75 MG TABLET PO SCH ×2 (08:01→09:03)
[2023-05-02] MEDS: DOCUSATE SODIUM 100 MG CAPSULE PO SCH ×2 (08:01→20:06)
[2023-05-02] MEDS: SENNOSIDES 8.6 MG (SENOKOT) TAB PO SCH ×2 (08:02→20:06)
[2023-05-02] MEDS ORDERED: DIGOXIN INJECTION 0.25 MG/ML 2 ML AMPULE IV ONE (08:45)
--- NOTE | 2023-05-02 09:01 | Tele-ICU Progress Note ---
Subjective Date Seen by a Provider: May 02, 2023 Subjective/Events-last exam This virtual visit was conducted using real time audio/video. Thank you for asking us to see this patient for critical care services due to urosepsis and NSTEMI Recent events:intermittent afib. PE: VSS. O2 sat 95% on RA. HEENT: No obvious masses, adenopathy or JVD. Chest: clear to auscultation. CV: RRR S1 S2 No murmur or added sounds. Abd: Non-tender. Bowel sounds Y. : Unremarkable. [place] Y. WEATHERIZATION DIRECTOR/psychiatric: Grossly intact. No obvious focal findings. Extremities: No edema. Capillary refill < 3 seconds. Skin: unremarkable. Results: Elevated BUN 25, trop 1.827, Lactate 2.34, WCC 11.2 but decreasing. Decreased K 3.3, . AB.43/ on RA. CXR: venous congestion. Available chart/ vitals / labs / images reviewed. Video assessment done using teleICU camera, rest of exam as per RN. A/P: Critical Care: critically ill patient. Cont. abx, SSI, Plavix, Metop., Jeimy., PRN NTG Discussed with RN Yady. Asked RN to reach out to eICU if any questions or concerns later. Time spent with patient/coordination of care with other health professionals (mins): 15 Sepsis Event Evaluation Height, Weight, BMI Height: 5'1.00" Weight: 135lbs. 0.0oz. 61.105326ay; 23.38 BMI Method:Stated Focused Exam Lactate Level 05/01/23 20:05: Lactic Acid Level 2.34*H 05/01/23 22:07: Lactic Acid Level 1.47 Time of Focused Exam: 21:00 Exam Exam Patient acknowledged, consented, and participated in this virtual visit which was conducted using real time audio/video Vital Signs Date Time Temp Pulse Resp B/P (MAP) Pulse Ox O2 Delivery O2 Flow Rate FiO2 05/02/23 08:00 75 26 87/51 (67) 90 Room Air 05/02/23 07:59 37.2 05/02/23 07:00 126 25 106/66 (77) 92 Room Air 05/02/23 07:00 126 05/02/23 06:00 86 29 120/62 (83) 94 Room Air 05/02/23 06:00 86 29 120/62 (83) 94 Room Air 05/02/23 05:00 108 30 114/65 (73) 91 Room Air 05/02/23 05:00 108 30 114/65 (73) 91 Room Air 05/02/23 04:01 98 Room Air 05/02/23 04:00 96 30 106/59 (72) 92 Room Air 05/02/23 04:00 37.4 96 30 106/59 (72) 92 Room Air 05/02/23 03:00 101 27 106/65 (74) 91 Room Air 05/02/23 03:00 101 27 106/65 (74) 91 Room Air 05/02/23 02:00 113 17 148/71 (87) Room Air 05/02/23 02:00 113 17 148/71 (87) Room Air 05/02/23 01:15 118 35 91 Room Air 05/02/23 01:15 118 35 91 Room Air 05/02/23 01:00 110/77 (90) 05/02/23 01:00 110/77 (90) 05/02/23 00:59 114 05/02/23 00:48 117/92 (96) 05/02/23 00:48 117/92 (96) 05/02/23 00:45 50/41 (42) 05/02/23 00:45 50/41 (42) 05/02/23 00:30 136/118 (126) 05/02/23 00:30 136/118 (126) 05/02/23 00:15 92 25 126/114 (121) 77 Room Air 05/02/23 00:15 92 25 126/114 (121) 77 Room Air 05/02/23 00:00 80 31 124/78 (89) 81 Room Air 05/02/23 00:00 37.8 80 31 124/78 (89) 81 Room Air 05/01/23 23:59 98 Room Air 05/01/23 23:45 86 25 141/119 (131) 97 Room Air 05/01/23 23:45 37.8 86 25 141/119 (131) 97 Room Air 05/01/23 23:30 79 12 114/59 (81) 94 Room Air 05/01/23 23:30 79 12 114/59 (81) 94 Room Air 05/01/23 23:15 105 13 106/55 (75) 79 Room Air 05/01/23 23:15 105 13 106/55 (75) 79 Room Air 05/01/23 23:04 77 93 21 05/01/23 23:00 75 16 104/54 (71) 94 Room Air 05/01/23 23:00 75 16 104/54 (71) 94 Room Air 05/01/23 22:45 76 22 104/52 (70) 90 Room Air 05/01/23 22:45 76 22 104/52 (70) 90 Room Air 05/01/23 22:30 36.4 81 20 102/74 (83) 96 Room Air 05/01/23 22:30 36.4 81 20 102/74 (83) 96 Room Air 05/01/23 22:14 90 102/69 96 Room Air 05/01/23 19:12 36.9 98 24 112/44 (66) 98 I & O 05/02/23 07:00 Intake Total 1050 ml Output Total 575 ml Balance 475 ml Height & Weight Height: 5'1.00" Weight: 135lbs. 0.0oz. 61.262729ja; 23.38 BMI Method:Stated General Appearance: No Apparent Distress Respiratory: Normal Breath Sounds, No Accessory Muscle Use, No Respiratory Distress Cardiovascular: Regular Rate, Rhythm, No Murmur Capillary Refill: Less Than 3 Seconds Peripheral Pulses: 1+ Dorsalis Pedis (R), 1+ Left Dors-Pedis (L) Results Lab Laboratory Tests 05/01/23 19:23 05/02/23 04:00 Assessment/Plan Assessment/Plan See free text. Critical Care: Critically Ill Patient GLDAYS RUBIN MD May 02, 2023 09:01
[2023-05-02] MEDS: CEFEPIME INJECTION 1,000 MG in NS (IVPB) 50 ML 50 ML IV SCH ×2 (09:02→20:42)
[2023-05-02] MEDS: ASPIRIN enteric coated 81MG TABLET PO SCH (09:03)
--- NOTE | 2023-05-02 10:47 | Diagnostic Imaging Report ---
CHEST 1 VIEW, AP/PA ONLY Indication: Hypoxia Comparison: 05/01/2023 Findings: Visible lungs are clear. No pleural effusion or pneumothorax. Normal heart size. Impression: 1. No acute cardiopulmonary process by portable radiography. Dictated by: Dictated on workstation # [id number]
--- NOTE | 2023-05-02 11:57 | Consultation-Cardiology ---
HPI-Cardiology Cardiology Consultation: Date of Consultation 05/02/23 Time Seen by a Provider: 08:10 Date of Admission Attending Physician Alexa Lama DO Admitting Physician Admitting Physician: Eloise Rod DO Attending Physician: Eloise Rod DO Consulting Physician MIRANDA LEZAMA MD, MA, FACP, FACC, FSCAI, CCDS HPI: Chief Complaint: Gen weakness 82 yo woman who has had gen weakness for the past at least 3 day. She does not report any cp or shortness of breath. She denies palp or syncope. She does not report leg swelling Review of Systems-Cardiology Review of Systems Constitutional: malaise, tiredness; No weight loss, No other Eyes: No vision change Ears/Nose/Throat: No ear discharge, No nasal drainage, No recent hearing loss Respiratory: As described under HPI Cardiovascular: As described under HPI Gastrointestinal: No diarrhea, No nausea, No vomiting Genitourinary: No dysuria, No hematuria, No urine frequency changes Musculoskeletal: No back pain Skin: No rash, No ulcerations Psychiatric/Neurological: No seizure, No focal weakness, No syncope Hematologic: No bleeding abnormalities CSF-Djvmvl-Qzxzti Hx Patient Social History Smoking Status: Never a Smoker 2nd Hand Smoke Exposure: No Alcohol Use?: No Pt feels they are or have been: No Immunizations Up To Date Tetanus Booster (TDap): Unknown Date of Pneumonia Vaccine: Jul 24, 2018 Date of Influenza Vaccine: Jul 24, 2021 Past Medical History PMH As described under Assessment. Family Medical History Family Medical History: She does not report fam h/o early CAD Allergies and Home Medications Allergies Coded Allergies: No Known Drug Allergies (Verified , 09/18/07) Patient Home Medication List Home Medication List Reviewed: Yes Amlodipine Besylate (Amlodipine Besylate) 5 Mg Tablet, 5 MG PO DAILY, (Reported) Entered as Reported by: MADHURI SIMMONS on 10/01/18 1324 Buspirone HCl (Buspirone HCl) 10 Mg Tablet, 10 MG PO BID, (Reported) Entered as Reported by: LAURE PATEL on 01/24/22 1454 Carbidopa/Levodopa/Entacapone (Cmcqmavwg-Ssrfaiza-Osvf 200 mg) 50 Mg-200 Mg-200 Mg Tablet, 1 EACH PO BID, (Reported) Entered as Reported by: LAURE PATEL on 01/24/22 1420 Cholecalciferol (Vitamin D3) (Vitamin D3) 1 Million Unit/Gram Liquid, 1 ML MC DAILY, (Reported) Entered as Reported by: RD MASON on 02/04/22 0945 Glimepiride (Glimepiride) 2 Mg Tablet, 2 MG PO 1700, (Reported) Entered as Reported by: LAURE PATEL on 01/24/22 1454 Losartan Potassium (Losartan Potassium) 100 Mg Tablet, 100 MG PO DAILY, (R eported) Entered as Reported by: MADHURI SIMMONS on 10/01/18 1324 Mecobalamin (B12 Active) 1,000 Mcg Tab.chew, 1,000 MCG PO DAILY, (Reported) Entered as Reported by: RD MASON on 02/04/22 0945 Metformin HCl (Metformin HCl) 1,000 Mg Tablet, 1,000 MG PO BID, (Reported) Entered as Reported by: LAURE PATEL on 05/21/21 1056 Physical Exam-Cardiology Physical Exam Vital Signs/I&O 05/01/23 05/02/23 05/02/23 05/02/23 23:59 00:00 00:00 00:15 Temp 37.8 Pulse 80 80 92 Resp 31 31 25 B/P (MAP) 124/78 (89) 124/78 (89) 126/114 (121) Pulse Ox 98 81 81 77 O2 Delivery Room Air Room Air Room Air Room Air 05/02/23 05/02/23 05/02/23 05/02/23 00:15 00:30 00:30 00:45 Pulse 92 Resp 25 B/P (MAP) 126/114 (121) 136/118 (126) 136/118 (126) 50/41 (42) Pulse Ox 77 O2 Delivery Room Air 05/02/23 05/02/23 05/02/23 05/02/23 00:45 00:48 00:48 00:59 Pulse 114 B/P (MAP) 50/41 (42) 117/92 (96) 117/92 (96) 05/02/23 05/02/23 05/02/23 05/02/23 01:00 01:00 01:15 01:15 Pulse 118 118 Resp 35 35 B/P (MAP) 110/77 (90) 110/77 (90) Pulse Ox 91 91 O2 Delivery Room Air Room Air 05/02/23 05/02/23 05/02/23 05/02/23 02:00 02:00 03:00 03:00 Pulse 113 113 101 101 Resp 17 17 27 27 B/P (MAP) 148/71 (87) 148/71 (87) 106/65 (74) 106/65 (74) Pulse Ox 91 91 O2 Delivery Room Air Room Air Room Air Room Air 05/02/23 05/02/23 05/02/23 05/02/23 04:00 04:00 04:01 05:00 Temp 37.4 Pulse 96 96 108 Resp 30 30 30 B/P (MAP) 106/59 (72) 106/59 (72) 114/65 (73) Pulse Ox 92 92 98 91 O2 Delivery Room Air Room Air Room Air Room Air 05/02/23 05/02/23 05/02/23 05/02/23 05:00 06:00 06:00 07:00 Pulse 108 86 86 126 Resp 30 29 29 B/P (MAP) 114/65 (73) 120/62 (83) 120/62 (83) Pulse Ox 91 94 94 O2 Delivery Room Air Room Air Room Air 05/02/23 05/02/23 05/02/23 05/02/23 07:00 07:59 08:00 08:00 Temp 37.2 Pulse 126 75 Resp 25 26 B/P (MAP) 106/66 (77) 87/51 (67) Pulse Ox 92 98 90 O2 Delivery Room Air Room Air Room Air 05/02/23 05/02/23 05/02/23 09:00 10:00 11:00 Pulse 88 75 75 Resp 23 15 B/P (MAP) 103/54 (70) 129/68 (92) 116/66 (83) Pulse Ox 93 90 97 O2 Delivery Room Air Room Air Room Air 05/02/23 00:00 Intake Total 1050 ml Balance 1050 ml Capillary Refill : Less Than 3 Seconds Skin: normal color, warm/dry Data Review Labs Laboratory Tests 05/01/23 19:23: White Blood Count 18.9H, Red Blood Count 4.33, Hemoglobin 12.2, Hematocrit 37, Mean Corpuscular Volume 85, Mean Corpuscular Hemoglobin 28, Mean Corpuscular Hemoglobin Concent 33, Red Cell Distribution Width 12.9, Platelet Count 180, Mean Platelet Volume 10.0, Immature Granulocyte % (Auto) 1, Neutrophils (%) (Auto) 90H, Lymphocytes (%) (Auto) 4L, Monocytes (%) (Auto) 5, Eosinophils (%) (Auto) 0, Basophils (%) (Auto) 0, Neutrophils # (Auto) 17.0H, Lymphocytes # (Auto) 0.8L, Monocytes # (Auto) 0.9, Eosinophils # (Auto) 0.0, Basophils # (Auto) 0.1, Immature Granulocyte # (Auto) 0.1, Neutrophils % (Manual) 70, Lymphocytes % (Manual) 4, Monocytes % (Manual) 5, Band Neutrophils 20, Toxic Granulation 1+, Platelet Estimate ADEQUATE, Blood Morphology Comment NORMAL, Prothrombin Time 14.5, INR Comment 1.1, Activated Partial Thromboplast Time 33, Sodium Level 136, Potassium Level 4.1, Chloride Level 103, Carbon Dioxide Level 20L, Anion Gap 13, Blood Urea Nitrogen 24H, Creatinine 1.75H, Estimat Glomerular Filtration Rate 29, BUN/Creatinine Ratio 14, Glucose Level 199H, Calcium Level 10.2H, Corrected Calcium 10.2H, Magnesium Level 1.6, Total Bilirubin 1.3H, As partate Amino Transf (AST/SGOT) 19, Alanine Aminotransferase (ALT/SGPT) 14, Alkaline Phosphatase 58, Total Creatine Kinase 291H, Creatine Kinase MB 3.2, Myoglobin 1033.8H, Troponin I 1.232*H, B-Type Natriuretic Peptide 122.5H, Total Protein 7.4, Albumin 4.0, TSH [place] Testing 2.40 05/01/23 19:38: Influenza Type A (RT-PCR) Not Detected, Influenza Type B (RT-PCR) Not Detected, SARS-CoV-2 RNA (RT-PCR) Not Detected 05/01/23 20:05: Lactic Acid Level 2.34*H 05/01/23 20:31: Urine Color YELLOW, Urine Clarity CLOUDY, Urine pH 5.5, Urine Specific [place] 1.015L, Urine Protein 3+H, Urine Glucose (UA) 3+H, Urine Ketones TRACEH, Urine Nitrite NEGATIVE, Urine Bilirubin NEGATIVE, Urine Urobilinogen 0.2, Urine Leukocyte Esterase 1+H, Urine RBC (Auto) 2+H, Urine RBC 2-5H, Urine WBC >100H, Urine Crystals NONE, Urine Bacteria LARGEH, Urine Casts NONE, Urine Mucus SMALLH , Urine Culture Indicated CULTURE PENDING 05/01/23 22:07: Lactic Acid Level 1.47 05/01/23 23:17: Total Creatine Kinase 301H, Myoglobin 347.6H, Troponin I 0.885*H 05/02/23 04:00: Total Creatine Kinase 403H, Myoglobin 794.2H, Troponin I 1.827*H, White Blood Count 11.2H, Red Blood Count 3.72L, Hemoglobin 10.4L, Hematocrit 32L, Mean Corpuscular Volume 85, Mean Corpuscular Hemoglobin 28, Mean Corpuscular Hemoglobin Concent 33, Red Cell Distribution Width 12.9, Platelet Count 128L, Mean Platelet Volume 10.6, Immature Granulocyte % (Auto) 0, Neutrophils (%) (A uto) 89H, Lymphocytes (%) (Auto) 5L, Monocytes (%) (Auto) 6, Eosinophils (%) (Auto) 0, Basophils (%) (Auto) 0, Neutrophils # (Auto) 9.9H, Lymphocytes # (Auto) 0.5L, Monocytes # (Auto) 0.7, Eosinophils # (Auto) 0.0, Basophils # (Auto) 0.0, Immature Granulocyte # (Auto) 0.1, Sodium Level 140, Potassium Level 3.3L, Chloride Level 111H, Carbon Dioxide Level 18L, Anion Gap 11, Blood Urea Nitrogen 25H, Creatinine 1.29, Estimat Glomerular Filtration Rate 41, BUN/Creatinine Ratio 19, Glucose Level 119H, Calcium Level 9.0, Corrected Calcium 9.6, Phosphorus Level 1.1L, Magnesium Level 1.4L, Total Bilirubin 1.3H, Aspartate Amino Transf (AST/SGOT) 23, Alanine Aminotransferase (ALT/SGPT) 13, Alkaline Phosphatase 47, Total Protein 6.1L, Albumin 3.3, Triglycerides Level 67, Cholesterol Level 95, LDL Cholesterol Direct 60, VLDL Cholesterol 13, HDL Cholesterol 27L 05/02/23 04:11: Blood Gas Puncture Site LR, Blood Gas Patient Temperature 37.1, Arterial Blood pH 7.43, Arterial Blood Partial Pressure CO2 29L, Arterial Blood Partial Pressure O2 78L, Arterial Blood HCO3 19L, Arterial Blood Total CO2 19.5L, Arterial Blood Oxygen Saturation 97, Arterial Blood Base Excess -4.9L, Javier Test YES-POS, Blood Gas Ventilator Setting NO, Blood Gas Inspired Oxygen ROOM AIR 05/02/23 10:36: Glucometer 206H Microbiology 05/01/23 Urine Culture - Preliminary, Resulted Escherichia coli Laboratory Tests 05/01/23 19:23 05/02/23 04:00 A/P-Cardiology Assessment/Admission Diagnosis Ac NSTEMI - echo on 05/02/23: LVEF 65-70% without any regional wall motion abnormality, grad 1 diastolic dysfunction, mild MR, mild to mod TR, PASP 30-35 mmHg. PAF - brief runs seen on tele Ac renal failure (JOANNE) Borderline hypotension (non-cardiac, ?sepsis) Discussion and Recomendations * Renal failure appears to improving with iv fluids. Continue * Replenish K and Mg * Monitor labs * iv dig today to control heart rate during brief episodes of PAF * Enoxaparin for stroke prophylaxis and for ACS * DAPT for ACS * Beta-carol if tolerated * Consider card cath after clinical stabilization MIRANDA LEZAMA MD FACP [facility] CCDS May 02, 2023 11:57
[2023-05-02] MEDS ORDERED: ESCI-2 PO (12:23)
[2023-05-02] MEDS ORDERED: CHOL20002 PO (12:23)
[2023-05-02] MEDS ORDERED: [UNRECOGNIZED DRUG - OTHER] PO (12:23)
[2023-05-02] MEDS ORDERED: CALC625T29 PO (12:23)
[2023-05-02] MEDS ORDERED: CALC-1121 PO (12:23)
--- NOTE | 2023-05-02 12:34 | History & Physical ---
TALI NAVARRO 05/02/23 1234: History of Present Illness History of Present Illness Reason for visit/HPI HPI: 82-year-old woman with a h/o diabetes presented to the ED feeling cold for the past 2 days. She was week and not able to stand the day before being admitted. Earlier in the week, she woke up and vomited and had stool incont inence, but does not remember it. She was found to have a WBC of 18.9 and a lactate of 2.34. Furthermore, patient labs showed a troponin of 1.827 this morning. As of this morning, patient was doing well. She reported no pain, no chills, no fever, no SOB, and no dizziness. She was laying comfortable in her bed with her sister and two children at her bedside. Date of Admission May 01, 2023 at 22:26 Date Seen by a Provider: May 02, 2023 Time Seen by a Provider: 09:00 I consulted on this patient on 05/02/23 12:29 Attending Physician Alexa Lama DO Admitting Physician Admitting Physician: Eloise Duval DO Attending Physician: Eloise Duval DO Consult Allergies and Home Medications Allergies Coded Allergies: No Known Drug Allergies (Verified , 09/18/07) Patient Home Medication List Home Medication List Reviewed: Yes Amlodipine Besylate (Amlodipine Besylate) 5 Mg Tablet, 5 MG PO DAILY, (Reported) Entered as Reported by: MADHURI SIMMONS on 10/01/18 1324 Last Action: Reviewed Calcium Carbonate/Vitamin D3 (Calcium 600 mg-D3 20 Mcg Cplt) 600 Mg Calcium-20 Mcg (800 Unit) Tablet, 1 EACH PO DAILY, (Reported) Entered as Reported by: NOE MORENO on 05/02/231222 Last Action: Reviewed Calcium Polycarbophil (Fiber Tabs) 625 Mg Tablet, 625 MG PO 1800, (Reported) Entered as Reported by: NOE MORENO on 05/02/231222 Last Action: Reviewed Cholecalciferol (Vitamin D3) (Vitamin D3) 50 Mcg (2000 Unit) Capsule, 50 MCG PO DAILY, (Reported) Entered as Reported by: NOE MORENO on 05/02/231222 Last Action: Reviewed Cyanocobalamin (Vitamin B-12) (Vitamin B-12) 1,000 Mcg Tab.subl, 1,000 MCG SL DAILY, (Reported) Entered as Reported by: NOE MORENO on 05/02/23 1236 Last Action: Reviewed Escitalopram Oxalate (Escitalopram Oxalate) 10 Mg Tablet, 10 MG PO DAILY, (Reported) Entered as Reported by: NOE MORENO on 05/02/23 1223 Last Action: Reviewed Glimepiride (Glimepiride) 2 Mg Tablet, 2 MG PO DAILY, (Reported) Entered as Reported by: LAURE PATLE on 01/24/22 1454 Last Action: Reviewed Losartan Potassium (Losartan Potassium) 100 Mg Tablet, 100 MG PO 1800, (Reported) Entered as Reported by: MADHURI SIMMONS on 10/01/18 1324 Last Action: Reviewed Metformin HCl (Metformin HCl) 1,000 Mg Tablet, 1,000 MG PO BID, (Reported) Entered as Reported by: LAURE PATEL on 05/21/21 1056 Last Action: Reviewed [Urinary Tract Health] , 1 EA PO 1800, (Reported) Entered as Reported by: NOE MORENO on 05/02/23 1223 Last Action: Reviewed Discontinued Medications Buspirone HCl (Buspirone HCl) 10 Mg Tablet, 10 MG PO BID, (Reported) Discontinued Reason: No Longer Taking Entered as Reported by: LAURE PATEL on 01/24/22 1454 Last Action: Discontinued Carbidopa/Levodopa/Entacapone (Kybdcubsl-Vjvpozre-Hmym 200 mg) 50 Mg-200 Mg-200 Mg Tablet, 1 EACH PO BID, (Reported) Discontinued Reason: No Longer Taking Entered as Reported by: LAURE PATEL on 01/24/22 1420 Last Action: Discontinued Cholecalciferol (Vitamin D3) (Vitamin D3) 1 Million Unit/Gram Liquid, 1 ML MC DAILY, (Reported) Discontinued Reason: Prescription changed Entered as Reported by: RD MASON on 02/04/2219 Mecobalamin (B12 Active) 1,000 Mcg Tab.chew, 1,000 MCG PO DAILY, (Reported) Discontinued Reason: Prescription changed Entered as Reported by: DR MASON on 02/04/22 0053 Last Action: Last Taken Edited Past Nivyeyp-Grppjr-Gnnpyj Hx Patient Social History Tobacco Use?: No Smoking Status: Never a Smoker Use of E-Cig and/or Vaping dev: No Substance use?: No Alcohol Use?: No Pt feels they are or have been: No Immunizations Up To Date Date of Influenza Vaccine: Jul 24, 2021 First/Initial COVID19 Vaccinat: yes Second COVID19 Vaccination Kyle: yes Date of Pneumonia Vaccine: Jul 24, 2018 Seasonal Allergies Seasonal Allergies: No Current Status Communicates: Verbally Primary Language: Vietnamese Preferred Spoken Language: Vietnamese Is interpretation needed?: No Sensory deficits: Vision impairment Past Medical History Surgeries: Cardiac Hypertension Parkinson's Disease Gastroesophageal Reflux Diabetes, Non-Insulin dep Anxiety, Depression Blood Disorders: No Adverse Reaction/Blood Tranf: No Review of Systems Constitutional: see HPI EENTM: no symptoms reported Respiratory: cough Gastrointestinal: no symptoms reported Genitourinary: no symptoms reported : No Musculoskeletal: no symptoms reported Skin: no symptoms reported Psychiatric/Neurological: No Symptoms Reported Physical Exam Vital Signs Vital Signs - First Documented 05/01/23 05/01/23 05/01/23 19:12 22:14 23:04 Temp 36.9 Pulse 98 Resp 24 B/P (MAP) 112/44 (66) Pulse Ox 98 O2 Delivery Room Air FiO2 21 Capillary Refill : Less Than 3 Seconds Height, Weight, BMI Height: 5'1.00" Weight: 135lbs. 0.0oz. 61.253528du; 23.38 BMI Method:Stated Eyes: Bilateral Eye Normal Inspection, Bilateral Eye PERRL, Bilateral Eye EOMI Respiratory: Normal Breath Sounds, No Accessory Muscle Use, No Respiratory Distress Neurologic/Psychiatric: Alert, Oriented x3, Normal Mood/Affect Skin: Normal Color, Warm/Dry Assessment/Plan Assessment and Plan Assessment: Sepsis secondary to UTI NSTEMI JOANNE PAF per cardiac consult DM Plan: Continue DAPT & anticoagulation for NSTE-ACS Potassium replenishment Continue IVF Monitor Admission Diagnosis Sepsis, UTI, JOANNE Admission Status: Inpatient Order (span 2 midnights) Reason for Inpatient Admission: Sepsis, NSTEMI, new onset PAF ELOISE DUVAL DO 05/03/23 0627: Allergies and Home Medications Allergies Coded Allergies: No Known Drug Allergies (Verified , 09/18/07) Patient Home Medication List Amlodipine Besylate (Amlodipine Besylate) 5 Mg Tablet, 5 MG PO DAILY, (Reported) Entered as Reported by: MADHURI SIMMONS on 10/01/18 9869 Last Action: Reviewed Calcium Carbonate/Vitamin D3 (Calcium 600 mg-D3 20 Mcg Cplt) 600 Mg Calcium-20 Mcg (800 Unit) Tablet, 1 EACH PO DAILY, (Reported) Entered as Reported by: NOE MORENO on 05/02/231222 Last Action: Reviewed Calcium Polycarbophil (Fiber Tabs) 625 Mg Tablet, 625 MG PO 1800, (Reported) Entered as Reported by: NOE MORENO on 05/02/231222 Last Action: Reviewed Cholecalciferol (Vitamin D3) (Vitamin D3) 50 Mcg (2000 Unit) Capsule, 50 MCG PO DAILY, (Reported) Entered as Reported by: NOE MORENO on 05/02/231222 Last Action: Reviewed Cyanocobalamin (Vitamin B-12) (Vitamin B-12) 1,000 Mcg Tab.subl, 1,000 MCG SL DAILY, (Reported) Entered as Reported by: NOE MORENO on 05/02/23 1236 Last Action: Reviewed Escitalopram Oxalate (Escitalopram Oxalate) 10 Mg Tablet, 10 MG PO DAILY, (Reported) Entered as Reported by: NOE MORENO on 05/02/231222 Last Action: Reviewed Glimepiride (Glimepiride) 2 Mg Tablet, 2 MG PO DAILY, (Reported) Entered as Reported by: LAURE PATEL on 01/24/22 1454 Last Action: Reviewed Losartan Potassium (Losartan Potassium) 100 Mg Tablet, 100 MG PO 1800, (Reported) Entered as Reported by: MADHURI SIMMONS on 10/01/18 132 Last Action: Reviewed Metformin HCl (Metformin HCl) 1,000 Mg Tablet, 1,000 MG PO BID, (Reported) Entered as Reported by: LAURE PATEL on 05/21/21 1056 Last Action: Reviewed [Urinary Tract Health] , 1 EA PO 1800, (Reported) Entered as Reported by: NOE MORENO on 05/02/231222 Last Action: Reviewed Discontinued Medications Buspirone HCl (Buspirone HCl) 10 Mg Tablet, 10 MG PO BID, (Reported) Discontinued Reason: No Longer Taking Entered as Reported by: LAURE PATEL on 01/24/22 2594 Last Action: Discontinued Carbidopa/Levodopa/Entacapone (Zbykzkmdz-Pcznbpwu-Yseh 200 mg) 50 Mg-200 Mg-200 Mg Tablet, 1 EACH PO BID, (Reported) Discontinued Reason: No Longer Taking Entered as Reported by: LAURE PATEL on 01/24/220 Last Action: Discontinued Cholecalciferol (Vitamin D3) (Vitamin D3) 1 Million Unit/Gram Liquid, 1 ML MEME SCOTT, (Reported) Discontinued Reason: Prescription changed Entered as Reported by: RD MASON on 02/04/22944 Mecobalamin (B12 Active) 1,000 Mcg Tab.chew, 1,000 MCG PO DAILY, (Reported) Discontinued Reason: Prescription changed Entered as Reported by: RD MASON on 02/04/22944 Last Action: Last Taken Edited Physical Exam General Appearance: No Apparent Distress, WD/WN, Chronically ill Respiratory: No Accessory Muscle Use, No Respiratory Distress, Decreased Breath Sounds Cardiovascular: Irregularly Irregular Assessment/Plan Assessment and Plan Problems: (1) Sepsis (2) Acute kidney injury Status: Acute (3) Non-STEMI (non-ST elevated myocardial infarction) Status: Acute (4) UTI (urinary tract infection) Status: Acute (5) Arrhythmia Status: Acute Admission Diagnosis Admission Status: Inpatient Order (span 2 midnights) Reason for Inpatient Admission: sepsis ntemi af Supervisory-Addendum Brief Verification & Attestation Participated in pt care: history, MDM, physical Personally performed: exam, history, MDM, supervision of care Care discussed with: Medical Student Procedures: n/a Results interpretation: Verified all documentation Verification and Attestation of Medical Student E/M Service A medical student performed and documented this service in my presence. I reviewed and verified all information documented by the medical student and made modifications to such information, when appropriate. I personally performed the physical exam and medical decision making. Eloise Duval May 03, 2023,06:27 TALI NAVARRO May 02, 2023 12:34 ELOISE DUVAL DO May 03, 2023 06:27
[2023-05-02] MEDS ORDERED: CYAN100015 SL (12:36)
[2023-05-02] MEDS ORDERED: VANCOMYCIN INJECTION 0.1 MG in NS (IVPB) 250 ML 250 ML IV SCH (15:45)
[2023-05-02] MEDS ORDERED: VANCOMYCIN 1250 MG/NS 250 ML PREMIX IV ONE (16:00)
[2023-05-02] MEDS ORDERED: ENOXAPARIN 60 MG/0.6 ML SYRINGE SC SCH ×2 (21:00)
[2023-05-03] MEDS: NS IV 1000 ML 1,000 ML IV SCH ×2 (01:41→08:12)
[2023-05-03 04:36] LABS: HEMOGLOBIN 9.3 g/dL (11.5-16.0); MEAN CORPUSCULAR VOLUME 87 fL (80-99)
[2023-05-03 04:38] LABS: BASOPHILS % (AUTO) 0 % (0-10); EOSINOPHILS # (AUTO) 0.1 10^3/uL (0.0-0.3); EOSINOPHILS % (AUTO) 1 % (0-10); HEMATOCRIT 29 % (35-52); LYMPHOCYTES # (AUTO) 1.2 10^3/uL (1.0-4.0); LYMPHOCYTES % (AUTO) 13 % (12-44); MEAN CORPUSCULAR HEMOGLOBIN 28 pg (25-34); MEAN CORPUSCULAR HGB CONC 33 g/dL (32-36); MEAN PLATELET VOLUME 11.1 fL (9.0-12.2); MONOCYTES # (AUTO) 0.8 10^3/uL (0.0-1.0); MONOCYTES % (AUTO) 9 % (0-12); NEUTROPHILS # (AUTO) 7.1 10^3/uL (1.8-7.8); NEUTROPHILS % (AUTO) 77 % (42-75); PLATELET COUNT 116 10^3/uL (130-400); WHITE BLOOD COUNT 9.3 10^3/uL (4.3-11.0)
[2023-05-03 04:50] LABS: SMEAR SCAN COMMENT YES
[2023-05-03 04:51] LABS: ALBUMIN 2.8 GM/DL (3.2-4.5)
[2023-05-03 04:52] LABS: CALCIUM 8.1 MG/DL (8.5-10.1)
[2023-05-03 04:57] LABS: PHOSPHORUS 1.9 MG/DL (2.3-4.7)
[2023-05-03 05:22] LABS: TOTAL PROTEIN 5.3 GM/DL (6.4-8.2)
[2023-05-03 05:24] LABS: BILIRUBIN,TOTAL 0.6 MG/DL (0.1-1.0)
[2023-05-03 05:25] LABS: CREATININE SERUM 0.86 MG/DL (0.60-1.30)
[2023-05-03 05:28] LABS: MAGNESIUM 2.2 MG/DL (1.6-2.4)
[2023-05-03] MEDS: POTASSIUM CL 10MEQ/50ML IVPB 50 ML IV SCH (06:07)
[2023-05-03] MEDS: POTASSIUM CHLORIDE 20 MEQ TABLET PO SCH (06:08)
[2023-05-03] MEDS: MAGNESIUM 1 GM/100 ML IVPB 100 ML IV SCH (06:08)
[2023-05-03] MEDS: inSUlin ASPART 1 UNIT/0.01 ML (PER UNIT) SC SCH ×4 (06:08→20:46)
--- NOTE | 2023-05-03 06:36 | Progress Note ---
Subjective Date Seen by a Provider: May 03, 2023 Time Seen by a Provider: 11:00 Subjective/Events-last exam Patient not feeling too well today Sleepy Nauseated earlier Urine culture pending Supportive care we will continue PT and OT Review of Systems General: Fatigue, Malaise Focused Exam Lactate Level 05/01/23 20:05: Lactic Acid Level 2.34*H 05/01/23 22:07: Lactic Acid Level 1.47 Time of Focused Exam: 21:00 Objective Exam Last Set of Vital Signs Vital Signs Date Time Temp Pulse Resp B/P (MAP) Pulse Ox O2 Delivery O2 Flow Rate FiO2 05/03/23 06:00 73 14 134/71 (92) 94 Room Air 05/02/23 16:00 36.7 05/01/23 23:04 21 Capillary Refill : Less Than 3 Seconds I&O Intake and Output 05/03/23 00:00 Intake Total 3650 ml Output Total 1925 ml Balance 1725 ml Intake Oral 1000 ml IV Total 2650 ml Output Urine Total 1925 ml # Bowel Movements 3 General: Alert, Oriented X3, Cooperative, No Acute Distress Lungs: Clear to Auscultation, Normal Air Movement Heart: Regular Rate, Normal S1, Normal S2, No Murmurs Psych/Mental Status: Mental Status NL, Mood NL Results Lab Laboratory Tests 05/02/23 10:36: Glucometer 206H 05/02/23 15:41: Glucometer 79 05/02/23 20:38: Glucometer 85 05/03/23 04:18: White Blood Count 9.3, Red Blood Count 3.29L, Hemoglobin 9.3L, Hematocrit 29L, Mean Corpuscular Volume 87, Mean Corpuscular Hemoglobin 28, Mean Corpuscular Hemoglobin Concent 33, Red Cell Distribution Width 13.1, Platelet Count 116L, Mean Platelet Volume 11.1, Immature Granulocyte % (Auto) 0, Neutrophils (%) (Auto) 77H, Lymphocytes (%) (Auto) 13, Monocytes (%) (Auto) 9, Eosinophils (%) (Auto) 1, Basophils (%) (Auto) 0, Neutrophils # (Auto) 7.1, Lymphocytes # (Auto) 1.2, Monocytes # (Auto) 0.8, Eosinophils # (Auto) 0.1, Basophils # (Auto) 0.0, Immature Granulocyte # (Auto) 0.0, Percent Immature Platelet Fraction 4.9, Sodium Level 135, Potassium Level 4.0, Chloride Level 113H, Carbon Dioxide Level 14L, Anion Gap 8, Blood Urea Nitrogen 17, Creatinine 0.86, Estimat Glomerular Filtration Rate 67, BUN/Creatinine Ratio 20, Glucose Level 74, Calcium Level 8 .1L, Corrected Calcium 9.1, Phosphorus Level 1.9L, Magnesium Level 2.2, Total Bilirubin 0.6, Aspartate Amino Transf (AST/SGOT) 42H, Alanine Aminotransferase (ALT/SGPT) 16, Alkaline Phosphatase 37L, Total Protein 5.3L, Albumin 2.8L, Smear Scan YES Microbiology 05/01/23 MRSA Screen - Final, Complete MRSA not isolated 05/01/23 Urine Culture - Preliminary, Resulted Escherichia coli 05/01/23 Blood Culture - Preliminary, Resulted Gram Positive Cocci in Cluster Gram Positive Bacillus 1 Assessment/Plan Assessment/Plan Assess & Plan/Chief Complaint Assessment: Sepsis secondary to UTI NSTEMI JOANNE Arrhythmia? DM Plan: Continue DAPT & anticoagulation for NSTE-ACS Potassium replenishment Continue IVF Monitor Diagnosis/Problems Diagnosis/Problems (1) Sepsis (2) Acute kidney injury Status: Acute (3) Non-STEMI (non-ST elevated myocardial infarction) Status: Acute (4) UTI (urinary tract infection) Status: Acute (5) Arrhythmia Status: Acute SHAMIKA DUVAL DO May 03, 2023 06:36
[2023-05-03] MEDS: ASPIRIN enteric coated 81MG TABLET PO SCH (08:09)
[2023-05-03] MEDS: CLOPIDOGREL 75 MG TABLET PO SCH (08:09)
[2023-05-03] MEDS: SENNOSIDES 8.6 MG (SENOKOT) TAB PO SCH ×2 (08:09→21:28)
[2023-05-03] MEDS: ACETAMINOPHEN 325 MG TABLET PO PRN (08:09)
[2023-05-03] MEDS: DOCUSATE SODIUM 100 MG CAPSULE PO SCH ×2 (08:09→21:27)
[2023-05-03] MEDS: CEFEPIME INJECTION 1,000 MG in NS (IVPB) 50 ML 50 ML IV SCH ×2 (08:11→16:40)
--- NOTE | 2023-05-03 08:35 | Tele-ICU Progress Note ---
Subjective Date Seen by a Provider: May 03, 2023 Time Seen by a Provider: 08:35 Subjective/Events-last exam (Tele-ICU Physician , Progress Note ) Service provided via interactive audio and video telecommunications E-CARE system to a patient admitted to ICU bed in [facility]. Patient is seen today due to persistent need of ICU care Available chart/ vitals / labs / Images reviewed Video assessment done using teleICU camera, rest of exam as per RN She is a 82-year-old female with a past medical history of hypertension, hyperlipidemia diabetes mellitus Parkinson's disease admitted with E. coli sepsis and urinary tract infection with a low blood pressure but now blood pressure is improved. She developed productive diarrhea. Her blood pressure is on the soft side but her urine output is good lactic acid has been improved to 1.47. She has been afebrile for the last 24 hours. Impression 1. Gram-negative sepsis with E. coli septicemia 2. E. coli urinary tract infection 3. NSTEMI 4. Thrombocytopenia probably due to sepsis 5. Electrolyte imbalance improving 6. Acute kidney injury improving Recommendations 1. We will get stool for culture and C. difficile toxin 2. Continue IV antibiotics per primary care physician 3. NSTEMI treatment and management per cardiology 4. DVT prophylaxis 5. Monitor platelet count 6. Replace electrolytes per protocol. Care coordination with primary care physician and bedside consultants. I am remotely monitoring this patient from Tele icu station in [place]. I am unable to do the bedside exam, and history/physical and pertinent information is taken from other notes in the computer and bedside staff. Certain portions of this document may have been dictated utilizing voice recognition technology such as [employer]. Inherent to this technology, typographical and grammatical errors may exist. As much as I am diligent to identify and correct to these mistakes, some errors may remain in the document. Critical care time devoted to this patient today is approximately is-25 minutes Sepsis Event Evaluation Height, Weight, BMI Height: 5'1.00" Weight: 135lbs. 0.0oz. 61.841549mh; 23.30 BMI Method:Stated Focused Exam Lactate Level 05/01/23 20:05: Lactic Acid Level 2.34*H 05/01/23 22:07: Lactic Acid Level 1.47 Time of Focused Exam: 21:00 Exam Exam Patient acknowledged, consented, and participated in this virtual visit which was conducted using real time audio/video Vital Signs Date Time Temp Pulse Resp B/P (MAP) Pulse Ox O2 Delivery O2 Flow Rate FiO2 05/03/23 08:00 98 Room Air 05/03/23 08:00 36.9 05/03/23 07:00 83 05/03/23 06:00 73 14 134/71 (92) 94 Room Air 05/03/23 05:00 70 21 129/64 (85) 93 Room Air 05/03/23 04:00 88 26 144/94 (111) 91 Room Air 05/03/23 03:42 98 Room Air 05/03/23 03:00 70 28 153/79 (103) 95 Room Air 05/03/23 02:00 91 27 120/63 (82) 97 Room Air 05/03/23 01:00 80 05/03/23 01:00 89 19 132/67 (88) 95 Room Air 05/03/23 00:00 98 Room Air 05/03/23 00:00 85 18 129/67 (87) 96 Room Air 05/02/23 23:00 86 18 118/54 (75) 95 Room Air 05/02/23 22:42 90 Room Air 05/02/23 22:00 86 18 157/73 (101) 93 Room Air 05/02/23 21:00 90 24 150/84 (106) 92 Room Air 05/02/23 20:14 98 Room Air 05/02/23 20:00 86 16 147/71 (96) 93 Room Air 05/02/23 19:00 83 05/02/23 19:00 85 22 137/69 (91) 91 Room Air 05/02/23 18:00 89 21 96 Room Air 05/02/23 17:00 82 21 120/87 (95) 95 Room Air 05/02/23 16:00 36.7 05/02/23 16:00 98 Room Air 05/02/23 16:00 76 26 127/88 (105) Room Air 05/02/23 15:00 79 25 96 Room Air 05/02/23 14:00 79 25 95 Room Air 05/02/23 13:00 70 19 99 Room Air 05/02/23 12:38 73 05/02/23 12:00 70 14 94 Room Air 05/02/23 12:00 36.4 05/02/23 12:00 98 Room Air 05/02/23 11:00 75 15 116/66 (83) 97 Room Air 05/02/23 10:00 75 23 129/68 (92) 90 Room Air 05/02/23 09:00 88 103/54 (70) 93 Room Air I & O 05/03/23 07:00 Intake Total 3850 ml Output Total 2075 ml Balance 1775 ml Height & Weight Height: 5'1.00" Weight: 135lbs. 0.0oz. 61.215883jf; 23.30 BMI Method:Stated General Appearance: No Apparent Distress, WD/WN, Chronically ill HEENT: PERRL/EOMI, TMs Normal, Normal ENT Inspection, Pharynx Normal, Other (FADED BRUISE TO LEFT CHEEK. NON-TENDER. 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
[2023-05-03] MEDS: ENOXAPARIN 60 MG/0.6 ML SYRINGE SC SCH ×2 (09:30→20:46)
--- NOTE | 2023-05-03 09:30 | Diagnostic Imaging Report ---
INDICATION: Dyspnea and hypoxia. COMPARISON: 05/02/2023. DISCUSSION: Single portable upright view of the chest was obtained. New consolidation along the right hilum and within the left lung base, likely edema or pneumonia. Elevated right hemidiaphragm. Stable heart size. No pleural fluid or pneumothorax. No osseous abnormality. IMPRESSION: 1. New consolidation along the right hilum and left lung base, likely edema or pneumonia. Dictated by: Dictated on workstation # [id number]
[2023-05-03] MEDS ORDERED: LOPERAMIDE 2 MG CAPSULE PO PRN (11:15)
[2023-05-03] MEDS ORDERED: LOPERAMIDE 2 MG CAPSULE PO NR (11:15)
[2023-05-03] MEDS ORDERED: VANCOMYCIN 750 MG/NS 250 ML IVPB IV SCH ×2 (16:00)
--- NOTE | 2023-05-03 17:32 | Cardiology Progress Note ---
Cardiology SOAP Progress Note Subjective: No chest pain Objective: I&O/Vital Signs 05/03/23 05/03/23 05/03/23 05/03/23 06:00 07:00 07:00 08:00 Temp 36.9 Pulse 73 83 69 Resp 14 14 B/P (MAP) 134/71 (92) 123/94 (104) Pulse Ox 94 97 O2 Delivery Room Air Room Air 05/03/23 05/03/23 05/03/23 05/03/23 08:00 08:00 09:00 10:00 Pulse 74 73 58 Resp 22 14 21 B/P (MAP) 107/58 (74) 123/62 (82) Pulse Ox 96 98 97 95 O2 Delivery Room Air Room Air Room Air Room Air 05/03/23 05/03/23 05/03/23 05/03/23 11:00 12:00 12:00 12:00 Temp 36.2 Pulse 54 67 Resp 19 12 B/P (MAP) 114/69 (84) 122/81 (95) Pulse Ox 95 98 100 O2 Delivery Room Air Room Air Room Air 05/03/23 05/03/23 05/03/23 05/03/23 13:00 13:00 14:00 15:00 Pulse 54 56 69 54 Resp 8 12 21 B/P (MAP) 149/75 (99) 135/94 (108) 128/65 (86) Pulse Ox 97 100 99 O2 Delivery Room Air Room Air Room Air 05/03/23 16:00 Pulse Ox 98 O2 Delivery Room Air 05/03/23 00:00 Intake Total 2500 ml Output Total 1150 ml Balance 1350 ml Weight (Pounds): 135 Weight (Ounces): 0.0 Weight (Calculated Kilograms): 61.971106 Constitutional: AAO x 3 Respiratory: lungs clear to auscultation Cardiovascular: regular rate-rhythm, S1 and S2; No diastolic murmur, No systolic murmur Gastrointestional: soft Extremities: normal inspection Neurologic/Psychiatric: alert, normal mood/affect, oriented x 3 Skin: normal color, warm/dry Results/Procedures: Labs Laboratory Tests 05/02/23 20:38: Glucometer 85 05/03/23 04:18: White Blood Count 9.3, Red Blood Count 3.29L, Hemoglobin 9.3L, Hematocrit 29L, Mean Corpuscular Volume 87, Mean Corpuscular Hemoglobin 28, Mean Corpuscular Hemoglobin Concent 33, Red Cell Distribution Width 13.1, Platelet Count 116L, Mean Platelet Volume 11.1, Immature Granulocyte % (Auto) 0, Neutrophils (%) (Auto) 77H, Lymphocytes (%) (Auto) 13, Monocytes (%) (Auto) 9, Eosinophils (%) (Auto) 1, Basophils (%) (Auto) 0, Neutrophils # (Auto) 7.1, Lymphocytes # (Auto) 1.2, Monocytes # (Auto) 0.8, Eosinophils # (Auto) 0.1, Basophils # (Auto) 0.0, Immature Granulocyte # (Auto) 0.0, Percent Immature Platelet Fraction 4.9, Sodium Level 135, Potassium Level 4.0, Chloride Level 113H, Carbon Dioxide Level 14L, Anion Gap 8, Blood Urea Nitrogen 17, Creatinine 0.86, Estimat Glomerular Filtration Rate 67, BUN/Creatinine Ratio 20, Glucose Level 74, Calcium Level 8.1L, Corrected Calcium 9.1, Phosphorus Level 1.9L, Magnesium Level 2.2, Total Bilirubin 0.6, Aspartate Amino Transf (AST/SGOT) 42H, Alanine Aminotransferase (ALT/SGPT) 16, Alkaline Phosphatase 37L, Total Protein 5.3L, Albumin 2.8L, Smear Scan YES 05/03/23 11:27: Glucometer 91 05/03/23 15:51: Glucometer 75 Microbiology 05/01/23 MRSA Screen - Final, Complete MRSA not isolated 05/01/23 Urine Culture - Final, Complete Escherichia coli 05/01/23 Blood Culture - Preliminary, Resulted Staphylococcus hominis Bacillus species No Further Testing A/P: Assessment/Dx: NSTEMI - echo on 05/02/23: LVEF 65-70% without any regional wall motion abnormality, grad 1 diastolic dysfunction, mild MR, mild to mod TR, PASP 30-35 mmHg. PAF - brief runs seen on tele renal failure (JOANNE) Borderline hypotension (non-cardiac, ?sepsis) Plan: Discussed at length with the patient. Coronary angiography is recommended. 1% risk of complication including was discussed with the patient and family. Patient excepted all risk and would like to proceed with coronary angiography and possible intervention on Friday. N.p.o. after midnight. Continue Lovenox for now. Hold a.m. dose of Lovenox on Friday. Continue aspirin and Plavix. Focused Exam Lactate Level 05/01/23 20:05: Lactic Acid Level 2.34*H 05/01/23 22:07: Lactic Acid Level 1.47 Time of Focused Exam: 21:00 Andrey SHAY MD May 03, 2023 17:32
[2023-05-04] MEDS: CEFEPIME INJECTION 1,000 MG in NS (IVPB) 50 ML 50 ML IV SCH ×4 (00:15→23:45)
[2023-05-04] MEDS: NS IV 1000 ML 1,000 ML IV SCH ×2 (00:15→08:42)
[2023-05-04 05:08] LABS: BASOPHILS % (AUTO) 0 % (0-10); EOSINOPHILS # (AUTO) 0.1 10^3/uL (0.0-0.3); EOSINOPHILS % (AUTO) 2 % (0-10); HEMATOCRIT 28 % (35-52); HEMOGLOBIN 9.2 g/dL (11.5-16.0); LYMPHOCYTES # (AUTO) 1.1 10^3/uL (1.0-4.0); LYMPHOCYTES % (AUTO) 16 % (12-44); MEAN CORPUSCULAR HEMOGLOBIN 28 pg (25-34); MEAN CORPUSCULAR HGB CONC 33 g/dL (32-36); MEAN CORPUSCULAR VOLUME 86 fL (80-99); MEAN PLATELET VOLUME 11.4 fL (9.0-12.2); MONOCYTES # (AUTO) 0.6 10^3/uL (0.0-1.0); MONOCYTES % (AUTO) 9 % (0-12); NEUTROPHILS # (AUTO) 4.9 10^3/uL (1.8-7.8); NEUTROPHILS % (AUTO) 73 % (42-75); PLATELET COUNT 110 10^3/uL (130-400); WHITE BLOOD COUNT 6.7 10^3/uL (4.3-11.0)
[2023-05-04 05:17] LABS: ALBUMIN 2.7 GM/DL (3.2-4.5); POTASSIUM 3.8 MMOL/L (3.6-5.0)
[2023-05-04 05:18] LABS: CALCIUM 8.1 MG/DL (8.5-10.1)
[2023-05-04 05:20] LABS: TOTAL PROTEIN 5.5 GM/DL (6.4-8.2)
[2023-05-04 05:21] LABS: BILIRUBIN,TOTAL 0.4 MG/DL (0.1-1.0)
[2023-05-04 05:23] LABS: CREATININE SERUM 0.77 MG/DL (0.60-1.30); PHOSPHORUS 2.5 MG/DL (2.3-4.7)
[2023-05-04 05:26] LABS: MAGNESIUM 1.8 MG/DL (1.6-2.4)
[2023-05-04] MEDS: POTASSIUM CL 10MEQ/50ML IVPB 50 ML IV SCH (05:28)
[2023-05-04] MEDS: MAGNESIUM 1 GM/100 ML IVPB 100 ML IV SCH ×3 (05:28→07:00)
[2023-05-04] MEDS: POTASSIUM CHLORIDE 20 MEQ TABLET PO SCH (05:28)
[2023-05-04] MEDS: inSUlin ASPART 1 UNIT/0.01 ML (PER UNIT) SC SCH ×4 (05:29→20:34)
[2023-05-04] MEDS ORDERED: POTASSIUM CHLORIDE 20 MEQ TABLET PO ONE (06:00)
--- NOTE | 2023-05-04 07:22 | Diagnostic Imaging Report ---
INDICATION: Hypoxia, hospitalized patient TECHNIQUE: Single view chest 5:03 AM CORRELATION STUDY: 05/03/2023 FINDINGS: Heart size and mediastinum are generally stable. Vasculature, however, appears increased from prior. Prominent interstitial markings particularly in the perihilar and basilar regions. IMPRESSION: 1. Vasculature overall appear slightly more prominent from prior suggesting mild edema. Bibasilar opacities likely reflective of edema versus infiltrate. Dictated by: Dictated on workstation # [id number]
--- NOTE | 2023-05-04 07:58 | Progress Note ---
Subjective Date Seen by a Provider: May 04, 2023 Time Seen by a Provider: 11:00 Subjective/Events-last exam Patient doing a little better We will have cardiac catheterization tomorrow [facility] Support Specialist suspects triple-vessel disease will be revealed Reviewed meds and labs Review of Systems General: Fatigue, Malaise Focused Exam Lactate Level 05/01/23 20:05: Lactic Acid Level 2.34*H 05/01/23 22:07: Lactic Acid Level 1.47 Time of Focused Exam: 21:00 Objective Exam Last Set of Vital Signs Vital Signs Date Time Temp Pulse Resp B/P (MAP) Pulse Ox O2 Delivery O2 Flow Rate FiO2 05/04/23 07:00 69 05/04/23 07:00 20 159/84 (113) 95 Room Air 05/04/23 04:05 37.6 05/01/23 23:04 21 Capillary Refill : Less Than 3 Seconds I&O Intake and Output 05/04/23 00:00 Intake Total 2700 ml Output Total 2700 ml Balance 0 ml Intake Oral 1300 ml IV Total 1400 ml Output Urine Total 2700 ml # Bowel Movements 4 General: Alert, Oriented X3, Cooperative, No Acute Distress Lungs: Clear to Auscultation, Normal Air Movement Heart: Regular Rate, Normal S1, Normal S2, No Murmurs Psych/Mental Status: Mental Status NL, Mood NL Results Lab Laboratory Tests 05/03/23 11:27: Glucometer 91 05/03/23 15:51: Glucometer 75 05/03/23 20:45: Glucometer 92 05/04/23 04:48: White Blood Count 6.7, Red Blood Count 3.27L, Hemoglobin 9.2L, Hematocrit 28L, Mean Corpuscular Volume 86, Mean Corpuscular Hemoglobin 28, Mean Corpuscular Hemoglobin Concent 33, Red Cell Distribution Width 13.2, Platelet Count 110L, Mean Platelet Volume 11.4, Immature Granulocyte % (Auto) 0, Neutrophils (%) (Auto) 73, Lymphocytes (%) (Auto) 16, Monocytes (%) (Auto) 9, Eosinophils (%) (Auto) 2, Basophils (%) (Auto) 0, Neutrophils # (Auto) 4.9, Lymphocytes # (Auto) 1.1, Monocytes # (Auto) 0.6, Eosinophils # (Auto) 0.1, Basophils # (Auto) 0.0, Immature Granulocyte # (Auto) 0.0, Percent Immature Platelet Fraction 5.4, Sodium Level 137, Potassium Level 3.8, Chloride Level 114H, Carbon Dioxide Level 15L, Anion Gap 8, Blood Urea Nitrogen 11, Creatinine 0.77, Estimat Glomerular Filtration Rate 77, BUN/Creatinine Ratio 14, Glucose Level 72, Calcium Level 8.1L, Corrected Calcium 9.1, Phosphorus Level 2.5, Magnesium Level 1.8, Total Bilirubin 0.4, Aspartate Amino Transf (AST/SGOT) 22, Alanine Aminotransferase (ALT/SGPT) 15, Alkaline Phosphatase 37L, Total Protein 5.5L, Albumin 2.7L Microbiology 05/01/23 MRSA Screen - Final, Complete MRSA not isolated 05/01/23 Urine Culture - Final, Complete Escherichia coli 05/01/23 Blood Culture - Preliminary, Resulted Staphylococcus hominis Bacillus species No Further Testing Assessment/Plan Assessment/Plan Assess & Plan/Chief Complaint Assessment: Sepsis secondary to UTI NSTEMI JOANNE Arrhythmia? DM Plan: Continue DAPT & anticoagulation for NSTE-ACS Potassium replenishment Continue IVF Monitor Diagnosis/Problems Diagnosis/Problems (1) Sepsis (2) Acute kidney injury Status: Acute (3) Non-STEMI (non-ST elevated myocardial infarction) Status: Acute (4) UTI (urinary tract infection) Status: Acute (5) Arrhythmia Status: Acute SHAMIKA DUVAL DO May 04, 2023 07:58
--- NOTE | 2023-05-04 08:08 | Tele-ICU Progress Note ---
Progress Note video rounds completed 82 y/o female admitted with NSTEMI and found to have E Coli UTI and Bacteremia One BC growing staph hominis which may be contaminant or has been associated with endocarditis. Had Echo with EF of 65-70% Cardiology following. She is on ASA and plavix and lovenox at 60mg BID Antibiotics are zosyn and vancomycin PE: sitting up in chair, appears comfortable Pulse: 63 NSR BP: 159/84 O2 sat 96% IMP: E Coli septicemia from urnary tract source NSTEMI PLAN: going tocath lab on Friday Continue antibiotics and DAPT with lovenox Time spent on review 15 minutes I am remotely monitoring this patient from Tele icu station in [place]. I am unable to do the bedside exam, and history/physical and pertinent information is taken from other notes in the computer and bedside staff. Focused Exam Lactate Level 05/01/23 20:05: Lactic Acid Level 2.34*H 05/01/23 22:07: Lactic Acid Level 1.47 Height, Weight, BMI Height: 5'1.00" Weight: 135lbs. 0.0oz. 61.244433xp; 25.08 BMI Method:Stated Time of Focused Exam: 21:00 Labs Laboratory Tests 05/04/23 04:48 Results Results/Procedures Labs Laboratory Tests 05/03/23 04:18 05/04/23 04:48 Patient resulted labs reviewed. Results Labs Labs Laboratory Tests 05/03/23 11:27: Glucometer 91 05/03/23 15:51: Glucometer 75 05/03/23 20:45: Glucometer 92 05/04/23 04:48: White Blood Count 6.7, Red Blood Count 3.27L, Hemoglobin 9.2L, Hematocrit 28L, Mean Corpuscular Volume 86, Mean Corpuscular Hemoglobin 28, Mean Corpuscular Hemoglobin Concent 33, Red Cell Distribution Width 13.2, Platelet Count 110L, Mean Platelet Volume 11.4, Immature Granulocyte % (Auto) 0, Neutrophils (%) (Auto) 73, Lymphocytes (%) (Auto) 16, Monocytes (%) (Auto) 9, Eosinophils (%) (Auto) 2, Basophils (%) (Auto) 0, Neutrophils # (Auto) 4.9, Lymphocytes # (Auto) 1.1, Monocytes # (Auto) 0.6, Eosinophils # (Auto) 0.1, Basophils # (Auto) 0.0, Immature Granulocyte # (Auto) 0.0, Percent Immature Platelet Fraction 5.4, Sodium Level 137, Potassium Level 3.8, Chloride Level 114H, Carbon Dioxide Level 15L, Anion Gap 8, Blood Urea Nitrogen 11, Creatinine 0.77, Estimat Glomerular Filtration Rate 77, BUN/Creatinine Ratio 14, Glucose Level 72, Calcium Level 8.1L, Corrected Calcium 9.1, Phosphorus Level 2.5, Magnesium Level 1.8, Total Bilirubin 0.4, Aspartate Amino Transf (AST/SGOT) 22, Alanine Aminotransferase (ALT/SGPT) 15, Alkaline Phosphatase 37L, Total Protein 5.5L, Albumin 2.7L Microbiology 05/01/23 MRSA Screen - Final, Complete MRSA not isolated 05/01/23 Urine Culture - Final, Complete Escherichia coli 05/01/23 Blood Culture - Preliminary, Resulted Staphylococcus hominis Bacillus species No Further Testing LUIS PENA MD May 04, 2023 08:08
[2023-05-04] MEDS: ENOXAPARIN 60 MG/0.6 ML SYRINGE SC SCH ×2 (08:33→20:39)
[2023-05-04] MEDS: CLOPIDOGREL 75 MG TABLET PO SCH (08:34)
[2023-05-04] MEDS: SENNOSIDES 8.6 MG (SENOKOT) TAB PO SCH ×2 (08:34→20:35)
[2023-05-04] MEDS: DOCUSATE SODIUM 100 MG CAPSULE PO SCH ×2 (08:34→20:35)
[2023-05-04] MEDS: ASPIRIN enteric coated 81MG TABLET PO SCH (08:34)
--- NOTE | 2023-05-04 14:26 | Cardiology Progress Note ---
Cardiology SOAP Progress Note Subjective: No chest pain. Objective: I&O/Vital Signs 05/04/23 05/04/23 05/04/23 05/04/23 03:00 04:00 04:00 04:05 Temp 37.6 Pulse 62 64 B/P (MAP) 140/73 (95) 155/75 (101) Pulse Ox 95 94 96 O2 Delivery Room Air Room Air Room Air 05/04/23 05/04/23 05/04/23 05/04/23 05:00 06:00 07:00 07:00 Pulse 69 60 70 69 Resp 20 B/P (MAP) 156/80 (105) 145/78 (100) 159/84 (113) Pulse Ox 94 93 95 O2 Delivery Room Air Room Air Room Air 05/04/23 05/04/23 05/04/23 05/04/23 07:48 08:03 12:29 12:30 Temp 37.1 35.8 Pulse 68 74 64 Resp 16 16 B/P (MAP) 138/80 (99) 139/99 (112) Pulse Ox 96 94 96 O2 Delivery Room Air Room Air Room Air 05/04/23 12:39 Pulse Ox 96 O2 Delivery Room Air 05/04/23 00:00 Intake Total 1150 ml Output Total 1625 ml Balance -475 ml Weight (Pounds): 135 Weight (Ounces): 0.0 Weight (Calculated Kilograms): 61.977288 Constitutional: AAO x 3 Respiratory: lungs clear to auscultation Cardiovascular: regular rate-rhythm, S1 and S2; No diastolic murmur, No systolic murmur Gastrointestional: soft Extremities: normal inspection Neurologic/Psychiatric: alert, normal mood/affect, oriented x 3 Skin: normal color, warm/dry Results/Procedures: Labs Laboratory Tests 05/03/23 15:51: Glucometer 75 05/03/23 20:45: Glucometer 92 05/04/23 04:48: White Blood Count 6.7, Red Blood Count 3.27L, Hemoglobin 9.2L, Hematocrit 28L, Mean Corpuscular Volume 86, Mean Corpuscular Hemoglobin 28, Mean Corpuscular Hemoglobin Concent 33, Red Cell Distribution Width 13.2, Platelet Count 110L, Mean Platelet Volume 11.4, Immature Granulocyte % (Auto) 0, Neutrophils (%) (Auto) 73, Lymphocytes (%) (Auto) 16, Monocytes (%) (Auto) 9, Eosinophils (%) (Auto) 2, Basophils (%) (Auto) 0, Neutrophils # (Auto) 4.9, Lymphocytes # (Auto) 1.1, Monocytes # (Auto) 0.6, Eosinophils # (Auto) 0.1, Basophils # (Auto) 0.0, Immature Granulocyte # (Auto) 0.0, Percent Immature Platelet Fraction 5.4, Sodium Level 137, Potassium Level 3.8, Chloride Level 114H, Carbon Dioxide Level 15L, Anion Gap 8, Blood Urea Nitrogen 11, Creatinine 0.77, Estimat Glomerular Filtration Rate 77, BUN/Creatinine Ratio 14, Glucose Level 72, Calcium Level 8.1L, Corrected Calcium 9.1, Phosphorus Level 2.5, Magnesium Level 1.8, Total Bi lirubin 0.4, Aspartate Amino Transf (AST/SGOT) 22, Alanine Aminotransferase (ALT/SGPT) 15, Alkaline Phosphatase 37L, Total Protein 5.5L, Albumin 2.7L 05/04/23 10:30: Glucometer 94 Microbiology 05/01/23 MRSA Screen - Final, Complete MRSA not isolated 05/01/23 Urine Culture - Final, Complete Escherichia coli 05/01/23 Blood Culture - Preliminary, Resulted Staphylococcus hominis Bacillus species No Further Testing A/P: Assessment/Dx: NSTEMI - echo on 05/02/23: LVEF 65-70% without any regional wall motion abnormality, grad 1 diastolic dysfunction, mild MR, mild to mod TR, PASP 30-35 mmHg. PAF - brief runs seen on tele renal failure (JOANNE) Borderline hypotension (non-cardiac, ?sepsis) Plan: Discussed at length with the patient. Coronary angiography is recommended. 1% risk of complication including was discussed with the patient and family. Patient excepted all risk and would like to proceed with coronary angiography and possible intervention on Friday. N.p.o. after midnight. Continue Lovenox for now. Hold a.m. dose of Lovenox on Friday. Continue aspirin and Plavix. Discussed with daughter again today. Informed consent was taken again. We will try from a right radial approach. Femoral access as a backup if required. Focused Exam Lactate Level 05/01/23 20:05: Lactic Acid Level 2.34*H 05/01/23 22:07: Lactic Acid Level 1.47 Time of Focused Exam: 21:00 Andrey SHAY MD May 04, 2023 14:26
[2023-05-04] MEDS ORDERED: TROUGH ORDER-PHARMACY XX ONE (15:00)
[2023-05-04 15:57] VITALS: BP 125/93
[2023-05-04] MEDS ORDERED: VANCOMYCIN 1 GM/NS 250 ML IVPB IV SCH ×2 (16:00)
[2023-05-04] MEDS: VANCOMYCIN 1250 MG/NS 250 ML PREMIX IV SCH (16:01)
[2023-05-04] MEDS: ACETAMINOPHEN 325 MG TABLET PO PRN (18:10)
[2023-05-05 04:33] LABS: BASOPHILS % (AUTO) 0 % (0-10); EOSINOPHILS # (AUTO) 0.2 10^3/uL (0.0-0.3); EOSINOPHILS % (AUTO) 3 % (0-10); HEMATOCRIT 29 % (35-52); LYMPHOCYTES # (AUTO) 1.3 10^3/uL (1.0-4.0); LYMPHOCYTES % (AUTO) 21 % (12-44); MEAN CORPUSCULAR HEMOGLOBIN 28 pg (25-34); MEAN CORPUSCULAR HGB CONC 33 g/dL (32-36); MEAN CORPUSCULAR VOLUME 84 fL (80-99); MONOCYTES # (AUTO) 0.5 10^3/uL (0.0-1.0); MONOCYTES % (AUTO) 8 % (0-12)
[2023-05-05 04:35] LABS: HEMOGLOBIN 9.5 g/dL (11.5-16.0); MEAN PLATELET VOLUME 11.7 fL (9.0-12.2); NEUTROPHILS # (AUTO) 4.1 10^3/uL (1.8-7.8); NEUTROPHILS % (AUTO) 68 % (42-75); PLATELET COUNT 114 10^3/uL (130-400); WHITE BLOOD COUNT 6.1 10^3/uL (4.3-11.0)
[2023-05-05 04:51] LABS: ALBUMIN 2.9 GM/DL (3.2-4.5); POTASSIUM 4.1 MMOL/L (3.6-5.0)
[2023-05-05 04:52] LABS: CALCIUM 8.6 MG/DL (8.5-10.1)
[2023-05-05 04:53] LABS: TOTAL PROTEIN 5.8 GM/DL (6.4-8.2)
[2023-05-05 04:55] LABS: BILIRUBIN,TOTAL 0.3 MG/DL (0.1-1.0)
[2023-05-05 04:56] LABS: PHOSPHORUS 3.2 MG/DL (2.3-4.7)
[2023-05-05 04:57] LABS: CREATININE SERUM 0.74 MG/DL (0.60-1.30)
[2023-05-05 05:00] LABS: MAGNESIUM 1.9 MG/DL (1.6-2.4)
[2023-05-05] MEDS: POTASSIUM CHLORIDE 20 MEQ TABLET PO SCH (05:01)
[2023-05-05] MEDS: POTASSIUM CL 10MEQ/50ML IVPB 50 ML IV SCH (05:01)
[2023-05-05] MEDS: MAGNESIUM 1 GM/100 ML IVPB 100 ML IV SCH ×3 (05:01→06:35)
[2023-05-05] MEDS: inSUlin ASPART 1 UNIT/0.01 ML (PER UNIT) SC SCH ×4 (05:02→20:43)
--- NOTE | 2023-05-05 07:47 | Tele-ICU Progress Note ---
Subjective Date Seen by a Provider: May 05, 2023 Time Seen by a Provider: 07:46 Subjective/Events-last exam (Tele-ICU Physician , Progress Note ) Service provided via interactive audio and video telecommunications E-CARE system to a patient admitted to ICU bed in [facility]. Patient is seen today due to persistent need of ICU care Available chart/ vitals / labs / Images reviewed Video assessment done using teleICU camera, rest of exam as per RN She is a 82-year-old female with a past medical history of hypertension, hyperlipidemia diabetes mellitus Parkinson's disease admitted with E. coli sepsis and urinary tract infection with a low blood pressure but now blood pressure is improved. She developed productive diarrhea. Her blood pressure is on the soft side but her urine output is good lactic acid has been improved to 1.47. She has been afebrile for the last 24 hours. 05/05/23. Impression 1. Gram-negative sepsis with E. coli septicemia 2. E. coli urinary tract infection 3. NSTEMI 4. Thrombocytopenia probably due to sepsis 5. Electrolyte imbalance improving 6. Acute kidney injury improving Recommendations 1. We will get stool for culture and C. difficile toxin 2. Continue IV antibiotics per primary care physician 3. NSTEMI treatment and management per cardiology 4. DVT prophylaxis 5. Monitor platelet count 6. Replace electrolytes per protocol. Care coordination with primary care physician and bedside consultants. I am remotely monitoring this patient from Tele icu station in [place]. I am unable to do the bedside exam, and history/physical and pertinent information is taken from other notes in the computer and bedside staff. Certain portions of this document may have been dictated utilizing voice recognition technology such as [employer]. Inherent to this technology, typographical and grammatical errors may exist. As much as I am diligent to identify and correct to these mistakes, some errors may remain in the document. Critical care time devoted to this patient today is approximately is- minutes Sepsis Event Evaluation Height, Weight, BMI Height: 5'1.00" Weight: 135lbs. 0.0oz. 61.153799mv; 24.76 BMI Method:Stated Focused Exam Time of Focused Exam: 21:00 Exam Exam Patient acknowledged, consented, and participated in this virtual visit which was conducted using real time audio/video Vital Signs Date Time Temp Pulse Resp B/P (MAP) Pulse Ox O2 Delivery O2 Flow Rate FiO2 05/05/23 07:42 36.6 59 19 157/82 (107) 95 Nasal Cannula 3.00 05/05/23 07:00 52 05/05/23 06:00 53 21 173/81 (111) 100 Room Air 05/05/23 05:00 55 28 158/79 (105) 97 Room Air 05/05/23 04:00 37.2 67 21 178/84 (125) 94 Room Air 05/05/23 02:00 61 22 167/98 (121) 95 Room Air 05/05/23 01:00 55 18 147/73 (97) 99 Room Air 05/05/23 01:00 54 05/05/23 00:01 36.8 05/05/23 00:00 57 13 172/81 (111) 96 Room Air 05/04/23 23:00 48 18 157/66 (96) 94 Room Air 05/04/23 22:00 62 21 151/79 (103) 87 Room Air 05/04/23 21:07 97 Room Air 05/04/23 21:00 56 13 124/62 (82) 93 Room Air 05/04/23 20:00 53 12 143/74 (97) 94 Room Air 05/04/23 19:21 36.4 05/04/23 19:00 91 128/75 (92) Room Air 05/04/23 19:00 81 05/04/23 15:57 36.6 64 93 05/04/23 15:35 36.6 64 16 125/93 (104) 93 Room Air 05/04/23 12:39 96 Room Air 05/04/23 12:30 35.8 64 16 139/99 (112) 96 Room Air 05/04/23 12:29 74 05/04/23 08:03 37.1 68 16 138/80 (99) 94 Room Air 05/04/23 07:48 96 Room Air I & O 05/05/23 07:00 Intake Total 2000 ml Output Total 5200 ml Balance -3200 ml Height & Weight Height: 5'1.00" Weight: 135lbs. 0.0oz. 61.208412qb; 24.76 BMI Method:Stated General Appearance: No Apparent Distress, WD/WN, Chronically ill HEENT: PERRL/EOMI, TMs Normal, Normal ENT Inspection, Pharynx Normal, Other (FADED BRUISE TO LEFT CHEEK. NON-TENDER. 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
[2023-05-05] MEDS ORDERED: NS IV 1000 ML 1,000 ML ONE (08:09)
[2023-05-05] MEDS ORDERED: HEParin (CATH LAB) 2,000 ML IV ONE (08:09)
[2023-05-05] MEDS ORDERED: LIDOCAINE 1% INJ 20 ML VIAL ONE (08:09)
[2023-05-05] MEDS: CEFEPIME INJECTION 1,000 MG in NS (IVPB) 50 ML 50 ML IV SCH (08:22)
[2023-05-05] MEDS ORDERED: ENOXAPARIN 60 MG/0.6 ML SYRINGE SC SCH (09:00)
[2023-05-05] MEDS ORDERED: HEParin 1000 UNIT/ML (10ML VIAL) FOR BOLUS ONE (09:41)
[2023-05-05] MEDS ORDERED: NITRO DRIP 25000 MCG/D5W 250 ML IV ONE (09:41)
[2023-05-05] MEDS ORDERED: VERAPAMIL 5 MG/2 ML (CALAN) VIAL IV ONE (09:41)
[2023-05-05] MEDS ORDERED: MIDAZOLAM INJ 5 MG/5 ML VIAL ONE (09:41)
[2023-05-05] MEDS ORDERED: fentaNYL INJECTION 100 MCG/2 ML VIAL ONE (09:41)
[2023-05-05] MEDS: CLOPIDOGREL 75 MG TABLET PO SCH (09:59)
[2023-05-05] MEDS: ASPIRIN enteric coated 81MG TABLET PO SCH (09:59)
[2023-05-05] MEDS: SENNOSIDES 8.6 MG (SENOKOT) TAB PO SCH ×2 (09:59→21:05)
[2023-05-05] MEDS: DOCUSATE SODIUM 100 MG CAPSULE PO SCH ×2 (09:59→21:05)
--- NOTE | 2023-05-05 10:22 | Diagnostic Imaging Report ---
INDICATION: Hypoxia. Comparison is made with prior exam of 05/04/2023. FINDINGS: The heart size is normal. There is some mild venous congestion. There are patchy bibasilar infiltrates, right greater than left. There is no pneumothorax. The mediastinum is unremarkable. IMPRESSION: Patchy bibasilar infiltrates, right greater than left. Mild central pulmonary venous congestion Dictated by: Dictated on workstation # [id number]
--- NOTE | 2023-05-05 11:13 | Cardiac Procedure Note-CS/ASA ---
Pre-Procedure Note Pre-Op Procedure Note Date H&P Reviewed: May 05, 2023 Time H&P Reviewed: 10:20 History & Physical: H&P Reviewed, No changes noted Pre-Operative Diagnosis: Non-STEMI Moderate Sedation PreProcedure Time 10:20 ASA Score 3 Airway Lungs Heart ASA score ASA 1: a normal healthy patient ASA 2: a patient with a mild systemic disease (mid diabetes, controlled hypertension, obesity ASA 3: a patient with a severe systemic disease that limits activity (angina, COPD, prior Myocardial infarction) ASA 4: a patient with an incapacitating disease that is a constant threat to life (CHF, renal failure) ASA 5: a moribund patient not expected to survive 24 hrs. (ruptured aneurysm) ASA 6: a declared brain- patient whose organs are being harvested. For emergent operations, add the letter E after the classification Mallampati Classification Grade 1 Sedation Plan Analgesia, Amnesia, Plan communicated to team members, Discussed options with patient/fam, Discussed risks with patient/fam The patient is an appropriate candidate to undergo the planned procedure, sedation, and anesthesia. The patient immediately re-assessed prior to indication. Andrey SHAY MD May 05, 2023 11:13
--- NOTE | 2023-05-05 11:26 | Coronary Angiography Report ---
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 She was treated aggressively in the ICU with improvement in her sepsis as well as normalization of her kidney function. Therefore, the patient was scheduled for coronary angiography. PROCEDURES PERFORMED: 1.Coronary angiography. 2.Left heart catheterization. COMPLICATIONS: None. SPECIMENS: None. ESTIMATED BLOOD LOSS: 10 mL ANESTHESIA: Conscious sedation ANTICOAGULATION: IV heparin CONTRAST: 60 ml. FLUOROSCOPY: 3-minute FLOUROSCOPY DOSE: 373 mgy. PROCEDURE DETAILS: The patient is a 82 female and was brought to the clinical laboratory director after informed consent was taken. All the risks and complications were explained in detail; this included the risk of bleeding, vascular damage, stroke, AR and even . The patient was draped and prepped in the usual sterile fashion. Access was gained in the right radial artery with a 6 Sinhala sheath. Coronary angiography and left heart catheterization was performed with the [place] catheter. FINDINGS: 1.Left main: Mild distal disease. 2.LAD: LAD is a small vessel with an equally sized first diagonal artery. Severe calcified bifurcation disease involving the ostium of the first diagonal artery. Stenosis severity 80% with 90% stenosis of the ostium of the first di agonal artery. Calcification noted. 3.Left circumflex artery: Tortuous vessel. Mild diffuse disease. No focal severe stenosis noted. 4.RCA: Large vessel with mild to moderate diffuse disease. Distal PDA has severe disease; however small vessel. 5.Left heart catheterization: LV pressure 113/6 mmHg. LVEDP 17 mmHg. Aortic pressure 116/58 mmHg. No gradient across the aortic valve. Normal LV function with no significant wall motion abnormality. CONCLUSIONS: Severe calcified mid LAD bifurcation disease. I will discuss with Dr. Lozada since likely if this lesion needs to be done, then arthrectomy may be required. Discussed with the patient and family. Continue dual antiplatelet therapy with aspirin and Plavix. Low molecular weight heparin. IV fluids. Monitor kidney function. Jennifer Torrez MD, FACP, FACC, [facility] Interventional Cardiology Andrey TORREZ MD May 05, 2023 11:26
--- NOTE | 2023-05-05 11:37 | Cardiology Progress Note ---
Cardiology SOAP Progress Note Subjective: No chest pain Objective: I&O/Vital Signs 05/05/23 05/05/23 05/05/23 05/05/23 00:00 00:01 01:00 01:00 Temp 36.8 Pulse 57 54 55 Resp 13 18 B/P (MAP) 172/81 (111) 147/73 (97) Pulse Ox 96 99 O2 Delivery Room Air Room Air 05/05/23 05/05/23 05/05/23 05/05/23 02:00 04:00 05:00 06:00 Temp 37.2 Pulse 61 67 55 53 Resp 22 21 28 21 B/P (MAP) 167/98 (121) 178/84 (125) 158/79 (105) 173/81 (111) Pulse Ox 95 94 97 100 O2 Delivery Room Air Room Air Room Air Room Air 05/05/23 05/05/23 05/05/23 07:00 07:42 09:00 Temp 36.6 Pulse 52 59 Resp 19 B/P (MAP) 157/82 (107) Pulse Ox 95 96 O2 Delivery Nasal Cannula Room Air O2 Flow Rate 3.00 05/05/23 00:00 Intake Total 1050 ml Output Total 2750 ml Balance -1700 ml Weight (Pounds): 135 Weight (Ounces): 0.0 Weight (Calculated Kilograms): 61.832723 Constitutional: AAO x 3 Respiratory: lungs clear to auscultation Cardiovascular: regular rate-rhythm, S1 and S2; No diastolic murmur, No systolic murmur Gastrointestional: soft Extremities: normal inspection Neurologic/Psychiatric: alert, normal mood/affect, oriented x 3 Skin: normal color, warm/dry Results/Procedures: Labs Laboratory Tests 05/04/23 15:00: Vancomycin Level Trough 6.9L 05/04/23 15:27: Glucometer 92 05/04/23 20:33: Glucometer 143H 05/05/23 04:18: White Blood Count 6.1, Red Blood Count 3.41L, Hemoglobin 9.5L, Hematocrit 29L, Mean Corpuscular Volume 84, Mean Corpuscular Hemoglobin 28, Mean Corpuscular Hemoglobin Concent 33, Red Cell Distribution Width 13.2, Platelet Count 114L, Mean Platelet Volume 11.7, Immature Granulocyte % (Auto) 1, Neutrophils (%) (Auto) 68, Lymphocytes (%) (Auto) 21, Monocytes (%) (Auto) 8, Eosinophils (%) (Auto) 3, Basophils (%) (Auto) 0, Neutrophils # (Auto) 4.1, Lymphocytes # (Auto) 1.3, Monocytes # (Auto) 0.5, Eosinophils # (Auto) 0.2, Basophils # (Auto) 0.0, Immature Granulocyte # (Auto) 0.0, Percent Immature Platelet Fraction 5.1, Sodium Level 139, Potassium Level 4.1, Chloride Level 115H, Carbon Dioxide Level 17L, Anion Gap 7, Blood Urea Nitrogen 10, Creatinine 0.74, Estimat Glomerular Filtration Rate 81, BUN/Creatinine Ratio 14, Glucose Level 90, Calcium Level 8.6, Corrected Calcium 9.5, Phosphorus Level 3.2, Magnesium Level 1.9, Total Bilirubin 0.3, Aspartate Amino Transf (AST/SGOT) 21, Alanine Aminotransferase (ALT/SGPT) 18, Alkaline Phosphatase 38L, Total Protein 5.8L, Albumin 2.9L Microbiology 05/01/23 MRSA Screen - Final, Complete MRSA not isolated 05/01/23 Urine Culture - Final, Complete Escherichia coli 05/01/23 Blood Culture - Preliminary, Resulted Staphylococcus hominis Bacillus species No Further Testing A/P: Assessment/Dx: NSTEMI - echo on 05/02/23: LVEF 65-70% without any regional wall motion abnormality, grad 1 diastolic dysfunction, mild MR, mild to mod TR, PASP 30-35 mmHg. PAF - brief runs seen on tele renal failure (JOANNE) Borderline hypotension (non-cardiac, ?sepsis) Plan: Severe mid LAD calcified bifurcation disease Which involves the ostium of an equally large first diagonal artery. Will likely require rotational arthrectomy. Will discuss with Dr. Lozada tomorrow. Either medical therapy versus transfer to [facility] for high risk PCI. Continue dual antiplatelet therapy and low molecular weight heparin. IV fluids since patient had JOANNE on admission. Focused Exam Time of Focused Exam: 21:00 Andrey SHAY MD May 05, 2023 11:37
[2023-05-05] MEDS ORDERED: PATIENT MAY USE OWN MEDS, ALL PO SCH (13:45)
[2023-05-05] MEDS: NS IV 1000 ML 1,000 ML IV SCH ×2 (13:59→20:19)
--- NOTE | 2023-05-05 14:13 | Progress Note ---
TALI NAVARRO 05/05/23 1413: Subjective Date Seen by a Provider: May 05, 2023 Time Seen by a Provider: 07:45 Subjective/Events-last exam Patient is doing well. She reported no issues over the weekend and was not having any pain at the moment. Patient is still experiencing cough and is having trouble eating dry, solid foods. She denies any dizziness, fever, chest pain, nausea, and vomiting. Alert & oriented x3. States the diarrhea she has been experiencing is starting to go away. She has not been able to ambulate yet, but she was able to get out of bed and relax in the chair in the room. She will have a cardiac catheterization done as of this morning. Review of Systems General: No Chills, No Night Sweats, No Fatigue, No Malaise, No Appetite, No Other HEENT: No Head Aches, No Visual Changes, No Eye Pain, No Ear Pain, No Dysphasia, No Sinus Congestion, No Post Nasal Drip, No Sore Throat, No Other Pulmonary: No Dyspnea; Cough; No Pleuritic Chest Pain, No Other Cardiovascular: No: Chest Pain, Palpitations, Orthopnea, Paroxysmal Noc. Dyspnea, Edema, Lt Headedness, Other Gastrointestinal: Diarrhea; No: Nausea, Vomiting, Abdominal Pain, Constipation, Melena, Hematochezia, Other Genitourinary: No Dysuria, No Frequency, No Incontinence, No Hematuria, No Retention, No Other Musculoskeletal: No: other, neck pain, shoulder pain, arm pain, back pain, hand pain, leg pain, foot pain Neurological: No: Weakness, Numbness, Incoordination, Change in speech, Confusion, Seizures, Other Focused Exam Time of Focused Exam: 21:00 Objective Exam Last Set of Vital Signs Vital Signs Date Time Temp Pulse Resp B/P (MAP) Pulse Ox O2 Delivery O2 Flow Rate FiO2 05/05/23 13:30 52 18 131/60 (83) 99 Room Air 05/05/23 12:05 36.5 3.00 05/01/23 23:04 21 Capillary Refill : Less Than 3 Seconds I&O Intake and Output 05/05/23 00:00 Intake Total 4100 ml Output Total 5050 ml Balance -950 ml Intake Oral 2600 ml IV Total 1500 ml Output Urine Total 5050 ml General: Alert, Oriented X3, Cooperative, No Acute Distress HEENT: Atraumatic, PERRLA, EOMI, Mucous Memb Moist/[place] Lungs: Clear to Auscultation, Normal Air Movement Extremities: No Clubbing, No Cyanosis, No Edema Neuro: Normal Speech Psych/Mental Status: Mental Status NL, Mood NL Results Lab Laboratory Tests 05/04/23 15:00: Vancomycin Level Trough 6.9L 05/04/23 15:27: Glucometer 92 05/04/23 20:33: Glucometer 143H 05/05/23 04:18: White Blood Count 6.1, Red Blood Count 3.41L, Hemoglobin 9.5L, Hematocrit 29L, Mean Corpuscular Volume 84, Mean Corpuscular Hemoglobin 28, Mean Corpuscular Hemoglobin Concent 33, Red Cell Distribution Width 13.2, Platelet Count 114L, Mean Platelet Volume 11.7, Immature Granulocyte % (Auto) 1, Neutrophils (%) (Auto) 68, Lymphocytes (%) (Auto) 21, Monocytes (%) (Auto) 8, Eosinophils (%) (Auto) 3, Basophils (%) (Auto) 0, Neutrophils # (Auto) 4.1, Lymphocytes # (Auto) 1.3, Monocytes # (Auto) 0.5, Eosinophils # (Auto) 0.2, Basophils # (Auto) 0.0, Immature Granulocyte # (Auto) 0.0, Percent Immature Platelet Fraction 5.1, Sodium Level 139, Potassium Level 4.1, Chloride Level 115H, Carbon Dioxide Level 17L, Anion Gap 7, Blood Urea Nitrogen 10, Creatinine 0.74, Estimat Glomerular Filtration Rate 81, BUN/Creatinine Ratio 14, Glucose Level 90, Calcium Level 8.6, Corrected Calcium 9.5, Phosphorus Level 3.2, Magnesium Level 1.9, Total Bilirubin 0.3, Aspartate Amino Transf (AST/SGOT) 21, Alanine Aminotransferase (ALT/SGPT) 18, Alkaline Phosphatase 38L, Total Protein 5.8L, Albumin 2.9L 05/05/23 11:45: Glucometer 90 Microbiology 05/01/23 MRSA Screen - Final, Complete MRSA not isolated 05/01/23 Urine Culture - Final, Complete Escherichia coli 05/01/23 Blood Culture - Preliminary, Resulted Staphylococcus hominis Bacillus species No Further Testing Assessment/Plan Assessment/Plan Assess & Plan/Chief Complaint Assessment: Sepsis secondary to UTI NSTEMI JOANNE Arrhythmia? DM Plan: Continue DAPT & anticoagulation for NSTE-ACS IVF & ceftriaxone Monitor Clinical Quality Measures Admission Status Admission Dx Sepsis, UTI, JOANNE ELOISE DUVAL DO 05/05/231938: Supervisory-Addendum Brief Verification & Attestation Participated in pt care: history, MDM, physical Personally performed: exam, history, MDM, supervision of care Care discussed with: Medical Student Procedures: n/a Results interpretation: Verified all documentation Verification and Attestation of Medical Student E/M Service A medical student performed and documented this service in my presence. I reviewed and verified all information documented by the medical student and made modifications to such information, when appropriate. I personally performed the physical exam and medical decision making. Eloise Duval, May 05, 2023,19:39 TALI NAVARRO May 05, 2023 14:13 ELOISE DUVAL DO May 05, 2023 19:39
[2023-05-05] MEDS: VANCOMYCIN 1250 MG/NS 250 ML PREMIX IV SCH (16:47)
[2023-05-05] MEDS: cefTRIAXone IV/IM 1,000 MG in NS (IVPB) 50 ML 50 ML IV SCH (16:48)
[2023-05-05] MEDS: ENOXAPARIN 60 MG/0.6 ML SYRINGE SC SCH (21:05)
[2023-05-06 04:41] LABS: BASOPHILS % (AUTO) 0 % (0-10); EOSINOPHILS # (AUTO) 0.2 10^3/uL (0.0-0.3); EOSINOPHILS % (AUTO) 4 % (0-10); HEMATOCRIT 27 % (35-52); LYMPHOCYTES # (AUTO) 1.7 10^3/uL (1.0-4.0); LYMPHOCYTES % (AUTO) 25 % (12-44); MEAN CORPUSCULAR HEMOGLOBIN 28 pg (25-34); MEAN CORPUSCULAR HGB CONC 33 g/dL (32-36); MEAN CORPUSCULAR VOLUME 84 fL (80-99); MEAN PLATELET VOLUME 11.3 fL (9.0-12.2); MONOCYTES # (AUTO) 0.6 10^3/uL (0.0-1.0); MONOCYTES % (AUTO) 9 % (0-12); NEUTROPHILS # (AUTO) 4.2 10^3/uL (1.8-7.8); NEUTROPHILS % (AUTO) 62 % (42-75); PLATELET COUNT 130 10^3/uL (130-400); WHITE BLOOD COUNT 6.8 10^3/uL (4.3-11.0)
[2023-05-06 04:56] LABS: SMEAR SCAN COMMENT YES
[2023-05-06 04:57] LABS: ALBUMIN 2.8 GM/DL (3.2-4.5); POTASSIUM 4.1 MMOL/L (3.6-5.0)
[2023-05-06 04:58] LABS: CALCIUM 8.5 MG/DL (8.5-10.1)
[2023-05-06 04:59] LABS: TOTAL PROTEIN 5.7 GM/DL (6.4-8.2)
[2023-05-06 05:01] LABS: BILIRUBIN,TOTAL 0.3 MG/DL (0.1-1.0)
[2023-05-06 05:02] LABS: PHOSPHORUS 3.6 MG/DL (2.3-4.7)
[2023-05-06 05:03] LABS: CREATININE SERUM 0.75 MG/DL (0.60-1.30)
[2023-05-06 05:07] LABS: MAGNESIUM 1.8 MG/DL (1.6-2.4)
[2023-05-06] MEDS: POTASSIUM CL 10MEQ/50ML IVPB 50 ML IV SCH (05:09)
[2023-05-06] MEDS: POTASSIUM CHLORIDE 20 MEQ TABLET PO SCH (05:09)
[2023-05-06] MEDS: inSUlin ASPART 1 UNIT/0.01 ML (PER UNIT) SC SCH ×4 (05:09→21:04)
[2023-05-06] MEDS: MAGNESIUM 1 GM/100 ML IVPB 100 ML IV SCH ×3 (05:09→06:19)
[2023-05-06] MEDS ORDERED: MAGNESIUM 1 GM/100 ML IVPB 200 ML IV ONE (05:13)
[2023-05-06] MEDS: ASPIRIN enteric coated 81MG TABLET PO SCH (08:24)
[2023-05-06] MEDS: CLOPIDOGREL 75 MG TABLET PO SCH (08:24)
[2023-05-06] MEDS: DOCUSATE SODIUM 100 MG CAPSULE PO SCH ×2 (09:00→21:04)
[2023-05-06] MEDS: ENOXAPARIN 60 MG/0.6 ML SYRINGE SC SCH ×2 (09:00→21:02)
[2023-05-06] MEDS: SENNOSIDES 8.6 MG (SENOKOT) TAB PO SCH ×2 (09:00→21:04)
[2023-05-06] MEDS ORDERED: CLOPIDOGREL 75 MG TABLET PO SCH (09:00)
[2023-05-06] MEDS ORDERED: ASPIRIN enteric coated 81MG TABLET PO SCH (09:00)
--- NOTE | 2023-05-06 09:42 | Progress Note ---
TALI NAVARRO 05/06/23 0942: Subjective Date Seen by a Provider: May 06, 2023 Time Seen by a Provider: 08:00 Subjective/Events-last exam 82-year-old female with h/o diabetes presented with sepsis secondary to UTI. Patient reports that she feels fine and nothing eventful happened overnight. She denied any chills, fever, chest pain, and dizziness. Was still having a cough that won't go away. Has been able to move from the bed to the chair in the room without any problems. Has not had a bowel movement in 2 days. Cardiac catheterization found disease in her LAD and she is waiting to hear if she has to go to [facility] for further treatment. Hospital course: 82-year-old female with h/o diabetes & HTN presented to the ED feeling cold for 3 days. She was weak and unable to stand and had vomiting & stool incontinence earlier in the week. She had a WBC of 18.9, lactate of 2.34, troponin of 1.232, BUN of 24 Cr of 1.75, hypotensive, and eGFR of 29. Head/cervical spine/facial bone CT showed no evidence of acute intracranial abnormality. Urine culture was positive for E. coli. Patient was admitted 05/01/23 with sepsis secondary to UTI, NSTEMI, and JOANNE. During her hospital stay, she was kept in ICU where she was placed on enoxaprin, vancomycin, cefepime, ceftriaxone, and DAPT of aspirin & clopidorel. She underwent cardiac catheterization and was found to have severe calcified mid LAD bifurcation disease that requires further treatment of medical therapy vs PCI. There is a possible new diagnosis of Afib as brief runs of PAF were seen on tele. Patient's BP fluctuated from high to low during her stay, but she stayed in stable condition and had a good recovery during her time in the ICU. Review of Systems General: No Chills, No Night Sweats, No Fatigue, No Malaise HEENT: No Head Aches, No Eye Pain, No Ear Pain, No Dysphasia, No Sinus Congestion, No Post Nasal Drip, No Sore Throat Pulmonary: No Dyspnea; Cough; No Pleuritic Chest Pain, No Other Cardiovascular: No: Chest Pain, Palpitations, Orthopnea, Paroxysmal Noc. Dyspnea, Edema, Lt Headedness Gastrointestinal: Diarrhea (Started to go away yesterday); No: Nausea, Vomiting, Abdominal Pain, Constipation, Melena, Hematochezia Genitourinary: No Dysuria, No Frequency, No Incontinence, No Hematuria, No Retention Musculoskeletal: No: other, neck pain, shoulder pain, arm pain, back pain, hand pain, leg pain, foot pain Neurological: No: Weakness, Numbness, Incoordination, Change in speech, Confusion, Seizures, Other Focused Exam Time of Focused Exam: 21:00 Objective Exam Last Set of Vital Signs Vital Signs Date Time Temp Pulse Resp B/P (MAP) Pulse Ox O2 Delivery O2 Flow Rate FiO2 05/06/23 09:00 63 25 85/66 (72) 95 Room Air 05/06/23 07:46 36.5 05/05/23 12:05 3.00 05/01/23 23:04 21 Capillary Refill : Less Than 3 Seconds I&O Intake and Output 05/06/23 00:00 Intake Total 1400 ml Output Total 3150 ml Balance -1750 ml Intake Oral 800 ml IV Total 600 ml Output Urine Total 3150 ml General: Alert, Oriented X3, Cooperative, No Acute Distress HEENT: Atraumatic, PERRLA, EOMI, Mucous Memb Moist/[place] Extremities: No Clubbing, No Cyanosis Neuro: Normal Speech Psych/Mental Status: Mental Status NL Results Lab Laboratory Tests 05/05/23 11:45: Glucometer 90 05/05/23 15:45: Glucometer 163H 05/05/23 20:28: Glucometer 116H 05/06/23 04:31: White Blood Count 6.8, Red Blood Count 3.20L, Hemoglobin 9.0L, Hematocrit 27L, Mean Corpuscular Volume 84, Mean Corpuscular Hemoglobin 28, Mean Corpuscular Hemoglobin Concent 33, Red Cell Distribution Width 13.0, Platelet Count 130, Mean Platelet Volume 11.3, Immature Granulocyte % (Auto) 1, Neutrophils (%) (Auto) 62, Lymphocytes (%) (Auto) 25, Monocytes (%) (Auto) 9, Eosinophils (%) (Auto) 4, Basophils (%) (Auto) 0, Neutrophils # (Auto) 4.2, Lymphocytes # (Auto) 1.7, Monocytes # (Auto) 0.6, Eosinophils # (Auto) 0.2, Basophils # (Auto) 0.0, Immature Granulocyte # (Auto) 0.0, Sodium Level 142, Potassium Level 4.1, Chloride Level 114H, Carbon Dioxide Level 20L, Anion Gap 8, Blood Urea Nitrogen 9, Creatinine 0.75, Estimat Glomerular Filtration Rate 79, BUN/Creatinine Ratio 12, Glucose Level 92, Calcium Level 8.5, Corrected Calcium 9.5, Phosphorus Level 3.6, Magnesium Level 1.8, Total Bilirubin 0.3, Aspartate Amino Transf (AST/SGOT) 19, Alanine Aminotransferase (ALT/SGPT) 17, Alkaline Phosphatase 37L, Total Protein 5.7L, Albumin 2.8L, Smear Scan YES Microbiology 05/01/23 MRSA Screen - Final, Complete MRSA not isolated 05/01/23 Urine Culture - Final, Complete Escherichia coli 05/01/23 Blood Culture - Preliminary, Resulted Staphylococcus hominis Bacillus species No Further Testing Assessment/Plan Assessment/Plan Assess & Plan/Chief Complaint Assessment: Sepsis secondary to UTI NSTEMI JOANNE Arrhythmia? DM Severe calcified mid LAD bifurcation disease Plan: Continue DAPT & anticoagulation for NSTE-ACS Continue IVF & antibiotics Move to 4th floor Waiting on decision for medical therapy vs. PCI at [facility] from cardiology Monitor Clinical Quality Measures Admission Status Admission Dx Sepsis, UTI, JOANNE ELOISE DUVAL DO 05/06/232045: Supervisory-Addendum Brief Verification & Attestation Participated in pt care: history, MDM, physical Personally performed: exam, history, MDM, supervision of care Care discussed with: Medical Student Procedures: n/a Results interpretation: Verified all documentation Verification and Attestation of Medical Student E/M Service A medical student performed and documented this service in my presence. I reviewed and verified all information documented by the medical student and made modifications to such information, when appropriate. I personally performed the physical exam and medical decision making. Eloise Duval May 06, 2023,20:46 TALI NAVARRO May 06, 2023 09:42 ELOISE DUVAL DO May 06, 2023 20:46
[2023-05-06] MEDS: NS IV 1000 ML 1,000 ML IV SCH ×2 (09:45→20:22)
--- NOTE | 2023-05-06 09:58 | Diagnostic Imaging Report ---
HISTORY: Hypoxia COMPARISON: 05/05/2023 TECHNIQUE: Frontal view of the chest. FINDINGS: There is mild elevation of the right hemidiaphragm. There are airspace opacities in the left lung base with a small left pleural effusion. The cardiac silhouette is stable in size. There is central interstitial and airspace opacities, likely from edema. No pneumothorax is seen. Bone density is diffusely low. IMPRESSION: 1. Small left pleural effusion with left basilar airspace opacity, may represent atelectasis or infiltrate. 2. Mild central pulmonary edema. Dictated by: Dictated on workstation # [id number]
--- NOTE | 2023-05-06 10:25 | Progress Note - Cardiology ---
Cardiology SOAP Progress Note Subjective: Sitting up in the recliner at the bedside No c/o CP, SOB, palpitations No c/o discomfort at cardiac cath site Objective: I&O/Vital Signs 05/05/23 05/06/23 05/06/23 05/06/23 23:00 00:00 01:00 01:00 Temp 36.9 Pulse 52 53 55 Resp 19 18 B/P (MAP) 159/72 (101) 159/69 (100) 158/78 (108) Pulse Ox 96 98 O2 Delivery Room Air Room Air 05/06/23 05/06/23 05/06/23 05/06/23 02:00 03:00 03:05 04:00 Temp 36.7 Pulse 52 51 48 Resp 17 22 16 B/P (MAP) 165/71 (102) 169/78 (120) 158/72 (106) Pulse Ox 99 97 98 O2 Delivery Room Air Room Air Room Air 05/06/23 05/06/23 05/06/23 05/06/23 05:00 06:00 07:00 07:10 Pulse 52 55 47 51 Resp 18 27 16 B/P (MAP) 167/68 (118) 162/73 (110) 148/64 (92) Pulse Ox 99 98 97 O2 Delivery Room Air Room Air Room Air 05/06/23 05/06/23 05/06/23 05/06/23 07:46 08:00 08:51 09:00 Temp 36.5 Pulse 67 63 Resp 18 25 B/P (MAP) 145/83 (103) 85/66 (72) Pulse Ox 97 97 95 O2 Delivery Room Air Room Air Room Air 05/06/23 10:00 Pulse 63 Resp 31 B/P (MAP) 147/112 (124) Pulse Ox 98 O2 Delivery Room Air 05/06/23 00:00 Intake Total 1250 ml Output Total 1450 ml Balance -200 ml Weight (Pounds): 135 Weight (Ounces): 0.0 Weight (Calculated Kilograms): 61.407590 Side: right (radial) Condition: extremity w/d/p Bruising: mild bruising Constitutional: AAO x 3 Respiratory: lungs clear to auscultation Cardiovascular: regular rate-rhythm, S1 and S2; No diastolic murmur, No systolic murmur Gastrointestional: soft Extremities: normal inspection Neurologic/Psychiatric: alert, normal mood/affect, oriented x 3 Skin: normal color, warm/dry Results/Procedures: Labs Laboratory Tests 05/05/23 11:45: Glucometer 90 05/05/23 15:45: Glucometer 163H 05/05/23 20:28: Glucometer 116H 05/06/23 04:31: White Blood Count 6.8, Red Blood Count 3.20L, Hemoglobin 9.0L, Hematocrit 27L, Mean Corpuscular Volume 84, Mean Corpuscular Hemoglobin 28, Mean Corpuscular Hemoglobin Concent 33, Red Cell Distribution Width 13.0, Platelet Count 130, Mean Platelet Volume 11.3, Immature Granulocyte % (Auto) 1, Neutrophils (%) (Auto) 62, Lymphocytes (%) (Auto) 25, Monocytes (%) (Auto) 9, Eosinophils (%) (Auto) 4, Basophils (%) (Auto) 0, Neutrophils # (Auto) 4.2, Lymphocytes # (Auto) 1.7, Monocytes # (Auto) 0.6, Eosinophils # (Auto) 0.2, Basophils # (Auto) 0.0, Immature Granulocyte # (Auto) 0.0, Sodium Level 142, Potassium Level 4.1, Chloride Level 114H, Carbon Dioxide Level 20L, Anion Gap 8, Blood Urea Nitrogen 9, Creatinine 0.75, Estimat Glomerular Filtration Rate 79, BUN/Creatinine Ratio 12, Glucose Level 92, Calcium Level 8.5, Corrected Calcium 9.5, Phosphorus Level 3.6, Magnesium Level 1.8, Total Bilirubin 0.3, Aspartate Amino Transf (AST/SGOT) 19, Alanine Aminotransferase (ALT/SGPT) 17, Alkaline Phosphatase 37L, Total Protein 5.7L, Albumin 2.8L, Smear Scan YES 05/06/23 10:34: Glucometer 218H Microbiology 05/01/23 MRSA Screen - Final, Complete MRSA not isolated 05/01/23 Urine Culture - Final, Complete Escherichia coli 05/01/23 Blood Culture - Preliminary, Resulted Staphylococcus hominis Bacillus species No Further Testing Procedures NAME: ALEX ALCANTARA [facility] REC#: [id number] PT STATUS: ADM IN : 1940 PHYSICIAN: SHAMIKA DUVAL DO ADMIT DATE: 05/01/23/ICU Draft Date of Exam:05/06/23 CHEST 1 VIEW, AP/PA ONLY HISTORY: Hypoxia COMPARISON: 05/05/2023 TECHNIQUE: Frontal view of the chest. FINDINGS: There is mild elevation of the right hemidiaphragm. There are airspace opacities in the left lung base with a small left pleural effusion. The cardiac silhouette is stable in size. There is central interstitial and airspace opacities, likely from edema. No pneumothorax is seen. Bone density is diffusely low. IMPRESSION: 1. Small left pleural effusion with left basilar airspace opacity, may represent atelectasis or infiltrate. 2. Mild central pulmonary edema. Dictated on workstation # [id number] Dict: 05/06/23 0947 Trans: 05/06/23 0957 CVB [id number] Interpreted by: MICHAEL NEGRETE MD : LVEF 65-70% without any regional wall motion abnormality, grad 1 diastolic dysfunction, mild MR, mild to mod TR, PASP 30-35 mmHg. CAD - Cardiac cath of 05-05-[address] Torrez: Severe mid LAD calcified bifurcation disease Which involves the ostium of an equally large first diagonal artery. Will likely require rotational arthrectomy. - medical tx vs transfer to tertiary care facility for PCI PAF - brief runs seen on tele Ac renal failure (JOANNE) Borderline hypotension (non-cardiac, ?sepsis) Plan: * S/P cardiac cath on 05-06-[address] Torrez - med tx vs transfer to tertiary care facility for PCI * Continue current medication regimen including DAPT * PAF - she is currently on Lovenox - change to OAC when determination has been made regarding coronary lesion * Continue SUKHDEV RAMOS [employer]CH[employer]IC May 06, 2023 10:25
--- NOTE | 2023-05-06 16:07 | Progress Note - Cardiology ---
Cardiology SOAP Progress Note Subjective: Shortness of breath much improved No cp or palp or syncope No n/v/d No focal weakness Gen weakness present Objective: I&O/Vital Signs 05/06/23 05/06/23 05/06/23 05/06/23 05:00 06:00 07:00 07:10 Pulse 52 55 47 51 Resp 18 27 16 B/P (MAP) 167/68 (118) 162/73 (110) 148/64 (92) Pulse Ox 99 98 97 O2 Delivery Room Air Room Air Room Air 05/06/23 05/06/23 05/06/23 05/06/23 07:46 08:00 08:51 09:00 Temp 36.5 Pulse 67 63 Resp 18 25 B/P (MAP) 145/83 (103) 85/66 (72) Pulse Ox 97 97 95 O2 Delivery Room Air Room Air Room Air 05/06/23 05/06/23 05/06/23 05/06/23 10:00 11:00 11:49 12:00 Temp 36.1 Pulse 63 53 56 Resp 31 26 18 B/P (MAP) 147/112 (124) 144/70 (94) 145/73 (97) Pulse Ox 98 96 96 O2 Delivery Room Air Room Air Room Air 05/06/23 05/06/23 05/06/23 05/06/23 13:00 13:01 14:00 15:00 Pulse 65 65 67 50 Resp 34 46 38 B/P (MAP) 139/92 (108) 151/66 (94) 140/102 (115) Pulse Ox 98 98 96 O2 Delivery Room Air Room Air Room Air 05/06/23 00:00 Intake Total 1250 ml Output Total 1450 ml Balance -200 ml Weight (Pounds): 135 Weight (Ounces): 0.0 Weight (Calculated Kilograms): 61.500197 Side: right (radial) Condition: extremity w/d/p Bruising: mild bruising Constitutional: AAO x 3 Respiratory: lungs clear to auscultation Cardiovascular: regular rate-rhythm, S1 and S2; No diastolic murmur, No systolic murmur Gastrointestional: soft Extremities: normal inspection Neurologic/Psychiatric: alert, normal mood/affect, oriented x 3 Skin: normal color, warm/dry Results/Procedures: Labs Laboratory Tests 05/05/23 20:28: Glucometer 116H 05/06/23 04:31: White Blood Count 6.8, Red Blood Count 3.20L, Hemoglobin 9.0L, Hematocrit 27L, Mean Corpuscular Volume 84, Mean Corpuscular Hemoglobin 28, Mean Corpuscular Hemoglobin Concent 33, Red Cell Distribution Width 13.0, Platelet Count 130, Mean Platelet Volume 11.3, Immature Granulocyte % (Auto) 1, Neutrophils (%) (Auto) 62, Lymphocytes (%) (Auto) 25, Monocytes (%) (Auto) 9, Eosinophils (%) (Auto) 4, Basophils (%) (Auto) 0, Neutrophils # (Auto) 4.2, Lymphocytes # (Auto) 1.7, Monocytes # (Auto) 0.6, Eosinophils # (Auto) 0.2, Basophils # (Auto) 0.0, Immature Granulocyte # (Auto) 0.0, Sodium Level 142, Potassium Level 4.1, Chloride Level 114H, Carbon Dioxide Level 20L, Anion Gap 8, Blood Urea Nitrogen 9, Creatinine 0.75, Estimat Glomerular Filtration Rate 79, BUN/Creatinine Ratio 12, Glucose Level 92, Calcium Level 8.5, Corrected Calcium 9.5, Phosphorus Level 3.6, Magnesium Level 1.8, Total Bilirubin 0.3, Aspartate Amino Transf (AST/SGOT) 19, Alanine Aminotransferase (ALT/SGPT) 17, Alkaline Phosphatase 37L, Total Protein 5.7L, Albumin 2.8L, Smear Scan YES 05/06/23 10:34: Glucometer 218H 05/06/23 15:41: Glucometer 82 Microbiology 05/01/23 MRSA Screen - Final, Complete MRSA not isolated 05/01/23 Urine Culture - Final, Complete Escherichia coli 05/01/23 Blood Culture - Preliminary, Resulted Staphylococcus hominis Bacillus species No Further Testing Laboratory Tests 05/05/23 04:18 05/06/23 04:31 A/P: Assessment: Ac NSTEMI - echo on 05/02/23: LVEF 65-70% without any regional wall motion abnormality, grad 1 diastolic dysfunction, mild MR, mild to mod TR, PASP 30-35 mmHg. CAD - Cardiac cath of 05-05-[address] Torrez: Severe mid LAD calcified bifurcation disease which involves the ostial first diagonal artery. LVEDP 17 mmHg. Normal LV function PAF - brief runs seen on tele Ac renal failure (JOANNE) resolved Moderate anemia of undetermined etiology, stable - managed by the Hospitalist service Plan: * I spoke with the patient in detail * I discussed the case with Dr Parker of Interventional Card at [facility]. He has kindly accepted the patient in transfer for consideration of complex PCI with surgical back up vs CABG * Continue current regimen * PAF - she is currently on Lovenox - change to OAC when determination has been made regarding coronary lesion MIRANDA LEZAMA MD FACP FAC CCDS May 06, 2023 16:07
[2023-05-06] MEDS: cefTRIAXone IV/IM 1,000 MG in NS (IVPB) 50 ML 50 ML IV SCH (16:27)
[2023-05-06] MEDS: VANCOMYCIN 1250 MG/NS 250 ML PREMIX IV SCH (16:28)
[2023-05-07 04:18] LABS: BASOPHILS % (AUTO) 0 % (0-10); EOSINOPHILS # (AUTO) 0.2 10^3/uL (0.0-0.3); EOSINOPHILS % (AUTO) 3 % (0-10); HEMATOCRIT 29 % (35-52); HEMOGLOBIN 9.6 g/dL (11.5-16.0); LYMPHOCYTES # (AUTO) 1.4 10^3/uL (1.0-4.0); LYMPHOCYTES % (AUTO) 22 % (12-44); MEAN CORPUSCULAR HEMOGLOBIN 28 pg (25-34); MEAN CORPUSCULAR HGB CONC 33 g/dL (32-36); MEAN CORPUSCULAR VOLUME 84 fL (80-99); MEAN PLATELET VOLUME 10.9 fL (9.0-12.2); MONOCYTES # (AUTO) 0.5 10^3/uL (0.0-1.0); MONOCYTES % (AUTO) 8 % (0-12); NEUTROPHILS # (AUTO) 4.3 10^3/uL (1.8-7.8); NEUTROPHILS % (AUTO) 66 % (42-75); PLATELET COUNT 175 10^3/uL (130-400); WHITE BLOOD COUNT 6.4 10^3/uL (4.3-11.0)
[2023-05-07 04:33] LABS: ALBUMIN 3.1 GM/DL (3.2-4.5); POTASSIUM 4.3 MMOL/L (3.6-5.0)
[2023-05-07 04:36] LABS: TOTAL PROTEIN 6.2 GM/DL (6.4-8.2)
[2023-05-07 04:38] LABS: ATYPICAL LYMPHOCYTES 2 %; BAND NEUTROPHILS 5 %; BILIRUBIN,TOTAL 0.2 MG/DL (0.1-1.0); EOSINOPHILS % (MANUAL) 2 %; LYMPHOCYTES % (MANUAL) 13 %; MONOCYTES % (MANUAL) 6 %; NEUTROPHILS % (MANUAL) 68 %; REACTIVE LYMPHOCYTES 4 %
[2023-05-07 04:39] LABS: PHOSPHORUS 3.8 MG/DL (2.3-4.7)
[2023-05-07 04:40] LABS: CREATININE SERUM 0.75 MG/DL (0.60-1.30)
[2023-05-07 04:43] LABS: MAGNESIUM 1.9 MG/DL (1.6-2.4)
[2023-05-07] MEDS: POTASSIUM CL 10MEQ/50ML IVPB 50 ML IV SCH (05:10)
[2023-05-07] MEDS: inSUlin ASPART 1 UNIT/0.01 ML (PER UNIT) SC SCH (05:11)
[2023-05-07] MEDS: MAGNESIUM 1 GM/100 ML IVPB 100 ML IV SCH ×3 (05:11→06:41)
[2023-05-07] MEDS: POTASSIUM CHLORIDE 20 MEQ TABLET PO SCH (05:11)
[2023-05-07] MEDS ORDERED: MAGNESIUM 1 GM/100 ML IVPB 200 ML IV ONE (05:21)
[2023-05-07] MEDS: NS IV 1000 ML 1,000 ML IV SCH (05:30)
--- NOTE | 2023-05-07 08:17 | Diagnostic Imaging Report ---
EXAMINATION: Chest 1 view HISTORY: Hypoxia COMPARISON: 05/06/2023 FINDINGS: The lungs are clear without edema or pneumonia. No pleural effusion or pneumothorax. Heart size is normal. IMPRESSION: 1. Clear lungs. Dictated by: Dictated on workstation # [id number]
[2023-05-07] MEDS: ASPIRIN enteric coated 81MG TABLET PO SCH (08:29)
[2023-05-07] MEDS: DOCUSATE SODIUM 100 MG CAPSULE PO SCH (08:29)
[2023-05-07] MEDS: CLOPIDOGREL 75 MG TABLET PO SCH (08:29)
[2023-05-07] MEDS: ENOXAPARIN 60 MG/0.6 ML SYRINGE SC SCH (08:30)
[2023-05-07] MEDS: SENNOSIDES 8.6 MG (SENOKOT) TAB PO SCH (09:10)
[2023-05-07 09:13] VITALS: BP 168/77
--- NOTE | 2023-05-07 11:03 | Discharge Summary ---
Diagnosis/Chief Complaint Date of Admission May 01, 2023 at 22:26 Date of Discharge May 07, 2023 at 09:15 Discharge Diagnosis Assessment: Sepsis secondary to UTI NSTEMI JOANNE Arrhythmia? DM Severe calcified mid LAD bifurcation disease Plan: Continue DAPT & anticoagulation for NSTE-ACS Continue IVF & antibiotics Move to 4th floor Waiting on decision for medical therapy vs. PCI at [facility] from cardiology Monitor Discharge Summary Discharge Physical Examination Allergies: Coded Allergies: No Known Drug Allergies (Verified , 09/18/07) Vitals & I&Os Vital Signs Date Time Temp Pulse Resp B/P (MAP) Pulse Ox O2 Delivery O2 Flow Rate FiO2 05/07/23 09:13 36.7 63 13 168/77 97 Room Air 3.00 05/01/23 23:04 21 General Appearance: Alert, Cooperative Respiratory: Clear to Auscultation Cardiovascular: Regular Rate Hospital Course Was the Problem List Reviewed?: Yes Hospital course: 82-year-old female with h/o diabetes & HTN presented to the ED feeling cold for 3 days. She was weak and unable to stand and had vomiting & stool incontinence earlier in the week. She had a WBC of 18.9, lactate of 2.34, troponin of 1.232, BUN of 24 Cr of 1.75, hypotensive, and eGFR of 29. Head/cervical spine/facial bone CT showed no evidence of acute intracranial abnormality. Urine culture was positive for E. coli. Patient was admitted 05/01/23 with sepsis secondary to UTI, NSTEMI, and JOANNE. During her hospital stay, she was kept in ICU where she was placed on enoxaprin, vancomycin, cefepime, ceftriaxone, and DAPT of aspirin & clopidorel. She underwent cardiac catheterization and was found to have severe calcified mid LAD bifurcation disease that requires further treatment of medical therapy vs PCI vs CABG. There is a possible new diagnosis of Afib as brief runs of PAF were seen on tele. Patient's BP fluctuated from high to low during her stay, but she stayed in stable condition and had a good recovery during her time in the ICU. Patient was discharge on 05/07/[address] [facility] via EMS for PCI vs CABG. Labs (last 24 hrs) Laboratory Tests 05/01/23 19:23: White Blood Count 18.9H, Red Blood Count 4.33, Hemoglobin 12.2, Hematocrit 37, Mean Corpuscular Volume 85, Mean Corpuscular Hemoglobin 28, Mean Corpuscular Hemoglobin Concent 33, Red Cell Distribution Width 12.9, Platelet Count 180, Mean Platelet Volume 10.0, Immature Granulocyte % (Auto) 1, Neutrophils (%) (Auto) 90H, Lymphocytes (%) (Auto) 4L, Monocytes (%) (Auto) 5, Eosinophils (%) (Auto) 0, Basophils (%) (Auto) 0, Neutrophils # (Auto) 17.0H, Lymphocytes # (Auto) 0.8L, Monocytes # (Auto) 0.9, Eosinophils # (Auto) 0.0, Basophils # (Auto) 0.1, Immature Granulocyte # (Auto) 0.1, Neutrophils % (Manual) 70, Lym phocytes % (Manual) 4, Monocytes % (Manual) 5, Band Neutrophils 20, Toxic Granulation 1+, Platelet Estimate ADEQUATE, Blood Morphology Comment NORMAL, Prothrombin Time 14.5, INR Comment 1.1, Activated Partial Thromboplast Time 33, Sodium Level 136, Potassium Level 4.1, Chloride Level 103, Carbon Dioxide Level 20L, Anion Gap 13, Blood Urea Nitrogen 24H, Creatinine 1.75H, Estimat Glomerular Filtration Rate 29, BUN/Creatinine Ratio 14, Glucose Level 199H, Calcium Level 10.2H, Corrected Calcium 10.2H, Magnesium Level 1.6, Total Bilirubin 1.3H, Aspartate Amino Transf (AST/SGOT) 19, Alanine Aminotransferase (ALT/SGPT) 14, Alkaline Phosphatase 58, Total Creatine Kinase 291H, Creatine Kinase MB 3.2, Myoglobin 1033.8H, Troponin I 1.232*H, B-Type Natriuretic Peptide 122.5H, Total Protein 7.4, Albumin 4.0, TSH [place] Testing 2.40 05/01/23 19:38: Influenza Type A (RT-PCR) Not Detected, Influenza Type B (RT-PCR) Not Detected, SARS-CoV-2 RNA (RT-PCR) Not Detected 05/01/23 20:05: Lactic Acid Level 2.34*H 05/01/23 20:31: Urine Color YELLOW, Urine Clarity CLOUDY, Urine pH 5.5, Urine Specific [place] 1.015L, Urine Protein 3+H, Urine Glucose (UA) 3+H, Urine Ketones TRACEH, Urine Nitrite NEGATIVE, Urine Bilirubin NEGATIVE, Urine Urobilinogen 0.2, Urine Leukocyte Esterase 1+H, Urine RBC (Auto) 2+H, Urine RBC 2-5H, Urine WBC >100H, Urine Crystals NONE, Urine Bacteria LARGEH, Urine Casts NONE, Urine Mucus SMALLH , Urine Culture Indicated CULTURE PENDING 05/01/23 22:07: Lactic Acid Level 1.47 05/01/23 22:26: Lab Scanned Report Referred Lab Report 05/01/23 23:17: Total Creatine Kinase 301H, Myoglobin 347.6H, Troponin I 0.885*H 05/02/23 04:00: Total Creatine Kinase 403H, Myoglobin 794.2H, Troponin I 1.827*H, White Blood Count 11.2H, Red Blood Count 3.72L, Hemoglobin 10.4L, Hematocrit 32L, Mean Corpuscular Volume 85, Mean Corpuscular Hemoglobin 28, Mean Corpuscular Hemoglobin Concent 33, Red Cell Distribution Width 12.9, Platelet Count 128L, Mean Platelet Volume 10.6, Immature Granulocyte % (Auto) 0, Neutrophils (%) (Auto) 89H, Lymphocytes (%) (Auto) 5L, Monocytes (%) (Auto) 6, Eosinophils (%) (Auto) 0, Basophils (%) (Auto) 0, Neutrophils # (Auto) 9.9H, Lymphocytes # (Auto) 0.5L, Monocytes # (Auto) 0.7, Eosinophils # (Auto) 0.0, Basophils # (A uto) 0.0, Immature Granulocyte # (Auto) 0.1, Sodium Level 140, Potassium Level 3.3L, Chloride Level 111H, Carbon Dioxide Level 18L, Anion Gap 11, Blood Urea Nitrogen 25H, Creatinine 1.29, Estimat Glomerular Filtration Rate 41, BUN/Creatinine Ratio 19, Glucose Level 119H, Calcium Level 9.0, Corrected Calcium 9.6, Phosphorus Level 1.1L, Magnesium Level 1.4L, Total Bilirubin 1.3H, Aspartate Amino Transf (AST/SGOT) 23, Alanine Aminotransferase (ALT/SGPT) 13, Alkaline Phosphatase 47, Total Protein 6.1L, Albumin 3.3, Triglycerides Level 67, Cholesterol Level 95, LDL Cholesterol Direct 60, VLDL Cholesterol 13, HDL Cholesterol 27L 05/02/23 04:11: Blood Gas Puncture Site LR, Blood Gas Patient Temperature 37.1, Arterial Blood pH 7.43, Arterial Blood Partial Pressure CO2 29L, Arterial Blood Partial Pressure O2 78L, Arterial Blood HCO3 19L, Arterial Blood Total CO2 19.5L, Arterial Blood Oxygen Saturation 97, Arterial Blood Base Excess -4.9L, Javier Test YES-POS, Blood Gas Ventilator Setting NO, Blood Gas Inspired Oxygen ROOM AIR 05/02/23 10:36: Glucometer 206H 05/02/23 15:41: Glucometer 79 05/02/23 20:38: Glucometer 85 05/03/23 04:18: White Blood Count 9.3, Red Blood Count 3.29L, Hemoglobin 9.3L, Hematocrit 29L, Mean Corpuscular Volume 87, Mean Corpuscular Hemoglobin 28, Mean Corpuscular Hemoglobin Concent 33, Red Cell Distribution Width 13.1, Platelet Count 116L, Mean Platelet Volume 11.1, Immature Granulocyte % (Auto) 0, Neutrophils (%) (Auto) 77H, Lymphocytes (%) (Auto) 13, Monocytes (%) (Auto) 9, Eosinophils (%) (Auto) 1, Basophils (%) (Auto) 0, Neutrophils # (Auto) 7.1, Lymphocytes # (Auto) 1.2, Monocytes # (Auto) 0.8, Eosinophils # (Auto) 0.1, Basophils # (Auto) 0.0, Immature Granulocyte # (Auto) 0.0, Percent Immature Platelet Fraction 4.9, Sodium Level 135, Potassium Level 4.0, Chloride Level 113H, Carbon Dioxide Level 14L, Anion Gap 8, Blood Urea Nitrogen 17, Creatinine 0.86, Estimat Glomerular Filtration Rate 67, BUN/Creatinine Ratio 20, Glucose Level 74, Calcium Level 8.1L, Corrected Calcium 9.1, Phosphorus Level 1.9L, Magnesium Level 2.2, Total Bilirubin 0.6, Aspartate Amino Transf (AST/SGOT) 42H, Alanine Aminotransferase (ALT/SGPT) 16, Alkaline Phosphatase 37L, Total Protein 5.3L, Albumin 2.8L, Smear Scan YES 05/03/23 11:27: Glucometer 91 05/03/23 15:51: Glucometer 75 05/03/23 20:45: Glucometer 92 05/04/23 04:48: White Blood Count 6.7, Red Blood Count 3.27L, Hemoglobin 9.2L, Hematocrit 28L, Mean Corpuscular Volume 86, Mean Corpuscular Hemoglobin 28, Mean Corpuscular Hemoglobin Concent 33, Red Cell Distribution Width 13.2, Platelet Count 110L, Mean Platelet Volume 11.4, Immature Granulocyte % (Auto) 0, Neutrophils (%) (Auto) 73, Lymphocytes (%) (Auto) 16, Monocytes (%) (Auto) 9, Eosinophils (%) (Auto) 2, Basophils (%) (Auto) 0, Neutrophils # (Auto) 4.9, Lymphocytes # (Auto) 1.1, Monocytes # (Auto) 0.6, Eosinophils # (Auto) 0.1, Basophils # (Auto) 0.0, Immature Granulocyte # (Auto) 0.0, Percent Immature Platelet Fraction 5.4, Sodium Level 137, Potassium Level 3.8, Chloride Level 114H, Carbon Dioxide Level 15L, Anion Gap 8, Blood Urea Nitrogen 11, Creatinine 0.77, Estimat Glomerular Filtration Rate 77, BUN/Creatinine Ratio 14, Glucose Level 72, Calcium Level 8.1L, Corrected Calcium 9.1, Phosphorus Level 2.5, Magnesium Level 1.8, Total Bilirubin 0.4, Aspartate Amino Transf (AST/SGOT) 22, Alanine Aminotransferase (ALT/SGPT) 15, Alkaline Phosphatase 37L, Total Protein 5.5L, Albumin 2.7L 05/04/23 10:30: Glucometer 94 05/04/23 15:00: Vancomycin Level Trough 6.9L 05/04/23 15:27: Glucometer 92 05/04/23 20:33: Glucometer 143H 05/05/23 04:18: White Blood Count 6.1, Red Blood Count 3.41L, Hemoglobin 9.5L, Hematocrit 29L, Mean Corpuscular Volume 84, Mean Corpuscular Hemoglobin 28, Mean Corpuscular Hemoglobin Concent 33, Red Cell Distribution Width 13.2, Platelet Count 114L, Mean Platelet Volume 11.7, Immature Granulocyte % (Auto) 1, Neutrophils (%) (Auto) 68, Lymphocytes (%) (Auto) 21, Monocytes (%) (Auto) 8, Eosinophils (%) (Auto) 3, Basophils (%) (Auto) 0, Neutrophils # (Auto) 4.1, Lymphocytes # (Auto) 1.3, Monocytes # (Auto) 0.5, Eosinophils # (Auto) 0.2, Basophils # (Auto) 0.0, Immature Granulocyte # (Auto) 0.0, Percent Immature Platelet Fraction 5.1, Sodium Level 139, Potassium Level 4.1, Chloride Level 115H, Carbon Dioxide Level 17L, Anion Gap 7, Blood Urea Nitrogen 10, Creatinine 0.74, Estimat Glomerular Filtration Rate 81, BUN/Creatinine Ratio 14, Glucose Level 90, Calcium Level 8.6, Corrected Calcium 9.5, Phosphorus Level 3.2, Magnesium Level 1.9, Total Bilirubin 0.3, Aspartate Amino Transf (AST/SGOT) 21, Alanine Aminotransferase (ALT/SGPT) 18, Alkaline Phosphatase 38L, Total Protein 5.8L, Albumin 2.9L 05/05/23 11:45: Glucometer 90 05/05/23 15:45: Glucometer 163H 05/05/23 20:28: Glucometer 116H 05/06/23 04:31: White Blood Count 6.8, Red Blood Count 3.20L, Hemoglobin 9.0L, Hematocrit 27L, Mean Corpuscular Volume 84, Mean Corpuscular Hemoglobin 28, Mean Corpuscular Hemoglobin Concent 33, Red Cell Distribution Width 13.0, Platelet Count 130, Mean Platelet Volume 11.3, Immature Granulocyte % (Auto) 1, Neutrophils (%) (Auto) 62, Lymphocytes (%) (Auto) 25, Monocytes (%) (Auto) 9, Eosinophils (%) (Auto) 4, Basophils (%) (Auto) 0, Neutrophils # (Auto) 4.2, Lymphocytes # (Auto) 1.7, Monocytes # (Auto) 0.6, Eosinophils # (Auto) 0.2, Basophils # (Auto) 0.0, Immature Granulocyte # (Auto) 0.0, Sodium Level 142, Potassium Level 4.1, Chloride Level 114H, Carbon Dioxide Level 20L, Anion Gap 8, Blood Urea Nitrogen 9, Creatinine 0.75, Estimat Glomerular Filtration Rate 79, BUN/Creatinine Ratio 12, Glucose Level 92, Calcium Level 8.5, Corrected Calcium 9.5, Phosphorus Level 3.6, Magnesium Level 1.8, Total Bilirubin 0.3, Aspartate Amino Transf (AST/SGOT) 19, Alanine Aminotransferase (ALT/SGPT) 17, Alkaline Phosphatase 37L, Total Protein 5.7L, Albumin 2.8L, Smear Scan YES 8/15/23 10:34: Glucometer 218H 05/06/23 15:41: Glucometer 82 05/06/23 21:01: Glucometer 140H 05/07/23 04:05: White Blood Count 6.4, Red Blood Count 3.47L, Hemoglobin 9.6L, Hematocrit 29L, Mean Corpuscular Volume 84, Mean Corpuscular Hemoglobin 28, Mean Corpuscular Hemoglobin Concent 33, Red Cell Distribution Width 12.8, Platelet Count 175, Mean Platelet Volume 10.9, Immature Granulocyte % (Auto) 1, Neutrophils (%) (Auto) 66, Lymphocytes (%) (Auto) 22, Monocytes (%) (Auto) 8, Eosinophils (%) ( Auto) 3, Basophils (%) (Auto) 0, Neutrophils # (Auto) 4.3, Lymphocytes # (Auto) 1.4, Monocytes # (Auto) 0.5, Eosinophils # (Auto) 0.2, Basophils # (Auto) 0.0, Immature Granulocyte # (Auto) 0.1, Neutrophils % (Manual) 68, Lymphocytes % (Manual) 13, Monocytes % (Manual) 6, Eosinophils % (Manual) 2, Band Neutrophils 5, Atypical Lymphocytes 2, Reactive Lymphocytes 4, Sodium Level 142, Potassium Level 4.3, Chloride Level 113H, Carbon Dioxide Level 22, Anion Gap 7, Blood Urea Nitrogen 10, Creatinine 0.75, Estimat Glomerular Filtration Rate 79, BUN/Creatinine Ratio 13, Glucose Level 107H, Calcium Level 9.0, Corrected Calcium 9.7, Phosphorus Level 3.8, Magnesium Level 1.9, Total Bilirubin 0.2, Aspartate Amino Transf (AST/SGOT) 30, Alanine Aminotransferase (ALT/SGPT) 29, Alkaline Phosphatase 47, Total Protein 6.2L, Albumin 3.1L Microbiology 05/01/23 MRSA Screen - Final, Complete MRSA not isolated 05/01/23 Urine Culture - Final, Complete Escherichia coli 05/01/23 Blood Culture - Final, Complete Staphylococcus hominis Bacillus sp not B. anthracis No Further Testing Pending Labs Microbiology Date/Time Source Procedure Growth Status 05/01/23 22:33 Nasal MRSA Screen - Final MRSA not isolated Complete 05/01/23 20:31 Urine [place] Cath Urine Culture - Final Escherichia coli Complete 05/01/23 20:10 Peripheral Lt Ac Blood Culture - Final Staphylococcus hominis Bacillus sp not B. anthracis No Further Testing Complete 05/01/23 20:05 Peripheral Rt Hand Blood Culture - Final Escherichia coli Complete Laboratory Tests 05/01/23 19:23: White Blood Count 18.9, Red Blood Count 4.33, Hemoglobin 12.2, Hematocrit 37, Mean Corpuscular Volume 85, Mean Corpuscular Hemoglobin 28, Mean Corpuscular Hemoglobin Concent 33, Red Cell Distribution Width 12.9, Platelet Count 180, Mean Platelet Volume 10.0, Immature Granulocyte % (Auto) 1, Neutrophils (%) (Auto) 90, Lymphocytes (%) (Auto) 4, Monocytes (%) (Auto) 5, Eosinophils (%) (Auto) 0, Basophils (%) (Auto) 0, Neutrophils # (Auto) 17.0, Lymphocytes # (Auto) 0.8, Monocytes # (Auto) 0.9, Eosinophils # (Auto) 0.0, Basophils # (Auto) 0.1, Immature Granulocyte # (Auto) 0.1, Neutrophils % (Manual) 70, Lymphocytes % (Manual) 4, Monocytes % (Manual) 5, Band Neutrophils 20, Toxic Granulation 1+, Platelet Estimate ADEQUATE, Blood Morphology Comment NORMAL, Prothrombin Time 14.5, INR Comment 1.1, Activated Partial Thromboplast Time 33, Sodium Level 136, Potassium Level 4.1, Chloride Level 103, Carbon Dioxide Level 20, Anion Gap 13, Blood Urea Nitrogen 24, Creatinine 1.75, Estimat Glomerular Filtration Rate 29, BUN/Creatinine Ratio 14, Glucose Level 199, Calcium Level 10.2, Corrected Calcium 10.2, Magnesium Level 1.6, Total Bilirubin 1.3, Aspartate Amino Transf (AST/SGOT) 19, Alanine Aminotransferase (ALT/SGPT) 14, Alkaline Phosphatase 58, Total Creatine Kinase 291, Creatine Kinase MB 3.2, Myoglobin 1033.8, Troponin I 1.232, B-Type Natriuretic Peptide 122.5, Total Protein 7.4, Albumin 4.0, TSH [place] Testing 2.40 05/01/23 19:38: Influenza Type A (RT-PCR) Not Detected, Influenza Type B (RT-PCR) Not Detected, SARS-CoV-2 RNA (RT-PCR) Not Detected 05/01/23 20:05: Lactic Acid Level 2.34 05/01/23 20:31: Urine Color YELLOW, Urine Clarity CLOUDY, Urine pH 5.5, Urine Specific [place] 1.015, Urine Protein 3+, Urine Glucose (UA) 3+, Urine Ketones TRACE, Urine Nitrite NEGATIVE, Urine Bilirubin NEGATIVE, Urine Urobilinogen 0.2, Urine Leukocyte Esterase 1+, Urine RBC (Auto) 2+, Urine RBC 2-5, Urine WBC >100, Urine Crystals NONE, Urine Bacteria LARGE, Urine Casts NONE, Urine Mucus SMALL, Urine Culture Indicated CULTURE PENDING 05/01/23 22:07: Lactic Acid Level 1.47 05/01/23 22:26: Lab Scanned Report Referred Lab Report 05/01/23 23:17: Total Creatine Kinase 301, Myoglobin 347.6, Troponin I 0.885 05/02/23 04:00: Total Creatine Kinase 403, Myoglobin 794.2, Troponin I 1.827, White Blood Count 11.2, Red Blood Count 3.72, Hemoglobin 10.4, Hematocrit 32, Mean Corpuscular Volume 85, Mean Corpuscular Hemoglobin 28, Mean Corpuscular Hemoglobin Concent 33, Red Cell Distribution Width 12.9, Platelet Count 128, Mean Platelet Volume 10.6, Immature Granulocyte % (Auto) 0, Neutrophils (%) (Auto) 89, Lymphocytes (%) (Auto) 5, Monocytes (%) (Auto) 6, Eosinophils (%) (Auto) 0, Basophils (%) (Auto) 0, Neutrophils # (Auto) 9.9, Lymphocytes # (Auto) 0.5, Monocytes # (Auto) 0.7, Eosinophils # (Auto) 0.0, Basophils # (Auto) 0.0, Immature Granulocyte # (Auto) 0.1, Sodium Level 140, Potassium Level 3.3, Chloride Level 111, Carbon Dioxide Level 18, Anion Gap 11, Blood Urea Nitrogen 25, Creatinine 1.29, Estimat Glomerular Filtration Rate 41, BUN/Creatinine Ratio 19, Glucose Level 119, Calcium Level 9.0, Corrected Calcium 9.6, Phosphorus Level 1.1, Magnesium Level 1.4, Total Bilirubin 1.3, Aspartate Amino Transf (AST/SGOT) 23, Alanine Aminotransferase (ALT/SGPT) 13, Alkaline Phosphatase 47, Total Protein 6.1, Albumin 3.3, Triglycerides Level 67, Cholesterol Level 95, LDL Cholesterol Direct 60, VLDL Cholesterol 13, HDL Cholesterol 27 05/02/23 04:11: Blood Gas Puncture Site LR, Blood Gas Patient Temperature 37.1, Arterial Blood pH 7.43, Arterial Blood Partial Pressure CO2 29, Arterial Blood Partial Pressure O2 78, Arterial Blood HCO3 19, Arterial Blood Total CO2 19.5, Arterial Blood O xygen Saturation 97, Arterial Blood Base Excess -4.9, Javier Test YES-POS, Blood Gas Ventilator Setting NO, Blood Gas Inspired Oxygen ROOM AIR 05/02/23 10:36: Glucometer 206 05/02/23 15:41: Glucometer 79 05/02/23 20:38: Glucometer 85 05/03/23 04:18: White Blood Count 9.3, Red Blood Count 3.29, Hemoglobin 9.3, Hematocrit 29, Mean Corpuscular Volume 87, Mean Corpuscular Hemoglobin 28, Mean Corpuscular Hemoglobin Concent 33, Red Cell Distribution Width 13.1, Platelet Count 116, Mean Platelet Volume 11.1, Immature Granulocyte % (Auto) 0, Neutrophils (%) (Aut o) 77, Lymphocytes (%) (Auto) 13, Monocytes (%) (Auto) 9, Eosinophils (%) (Auto) 1, Basophils (%) (Auto) 0, Neutrophils # (Auto) 7.1, Lymphocytes # (Auto) 1.2, Monocytes # (Auto) 0.8, Eosinophils # (Auto) 0.1, Basophils # (Auto) 0.0, Immature Granulocyte # (Auto) 0.0, Percent Immature Platelet Fraction 4.9, Sodium Level 135, Potassium Level 4.0, Chloride Level 113, Carbon Dioxide Level 14, Anion Gap 8, Blood Urea Nitrogen 17, Creatinine 0.86, Estimat Glomerular Filtration Rate 67, BUN/Creatinine Ratio 20, Glucose Level 74, Calcium Level 8.1, Corrected Calcium 9.1, Phosphorus Level 1.9, Magnesium Level 2.2, Total Bilirubin 0.6, Aspartate Amino Transf (AST/SGOT) 42, Alanine Aminotransferase (ALT/SGPT) 16, Alkaline Phosphatase 37, Total Protein 5.3, Albumin 2.8, Smear Scan YES 05/03/23 11:27: Glucometer 91 05/03/23 15:51: Glucometer 75 05/03/23 20:45: Glucometer 92 05/04/23 04:48: White Blood Count 6.7, Red Blood Count 3.27, Hemoglobin 9.2, Hematocrit 28, Mean Corpuscular Volume 86, Mean Corpuscular Hemoglobin 28, Mean Corpuscular Hemoglobin Concent 33, Red Cell Distribution Width 13.2, Platelet Count 110, Mean Platelet Volume 11.4, Immature Granulocyte % (Auto) 0, Neutrophils (%) (A uto) 73, Lymphocytes (%) (Auto) 16, Monocytes (%) (Auto) 9, Eosinophils (%) (Auto) 2, Basophils (%) (Auto) 0, Neutrophils # (Auto) 4.9, Lymphocytes # (Auto) 1.1, Monocytes # (Auto) 0.6, Eosinophils # (Auto) 0.1, Basophils # (Auto) 0.0, Immature Granulocyte # (Auto) 0.0, Percent Immature Platelet Fraction 5.4, Sodium Level 137, Potassium Level 3.8, Chloride Level 114, Carbon Dioxide Level 15, Anion Gap 8, Blood Urea Nitrogen 11, Creatinine 0.77, Estimat Glomerular Filtration Rate 77, BUN/Creatinine Ratio 14, Glucose Level 72, Calcium Level 8.1, Corrected Calcium 9.1, Phosphorus Level 2.5, Magnesium Level 1.8, Total Bilirubin 0.4, Aspartate Amino Transf (AST/SGOT) 22, Alanine Aminotransferase (ALT/SGPT) 15, Alkaline Phosphatase 37, Total Protein 5.5, Albumin 2.7 05/04/23 10:30: Glucometer 94 05/04/23 15:00: Vancomycin Level Trough 6.9 05/04/23 15:27: Glucometer 92 05/04/23 20:33: Glucometer 143 05/05/23 04:18: White Blood Count 6.1, Red Blood Count 3.41, Hemoglobin 9.5, Hematocrit 29, Mean Corpuscular Volume 84, Mean Corpuscular Hemoglobin 28, Mean Corpuscular Hemoglobin Concent 33, Red Cell Distribution Width 13.2, Platelet Count 114, Mean Platelet Volume 11.7, Immature Granulocyte % (Auto) 1, Neutrophils (%) (Auto) 68, Lymphocytes (%) (Auto) 21, Monocytes (%) (Auto) 8, Eosinophils (%) ( Auto) 3, Basophils (%) (Auto) 0, Neutrophils # (Auto) 4.1, Lymphocytes # (Auto) 1.3, Monocytes # (Auto) 0.5, Eosinophils # (Auto) 0.2, Basophils # (Auto) 0.0, Immature Granulocyte # (Auto) 0.0, Percent Immature Platelet Fraction 5.1, Sodium Level 139, Potassium Level 4.1, Chloride Level 115, Carbon Dioxide Level 17, Anion Gap 7, Blood Urea Nitrogen 10, Creatinine 0.74, Estimat Glomerular Filtration Rate 81, BUN/Creatinine Ratio 14, Glucose Level 90, Calcium Level 8.6, Corrected Calcium 9.5, Phosphorus Level 3.2, Magnesium Level 1.9, Total Bilirubin 0.3, Aspartate Amino Transf (AST/SGOT) 21, Alanine Aminotransferase (ALT/SGPT) 18, Alkaline Phosphatase 38, Total Protein 5.8, Albumin 2.9 05/05/23 11:45: Glucometer 90 05/05/23 15:45: Glucometer 163 05/05/23 20:28: Glucometer 116 05/06/23 04:31: White Blood Count 6.8, Red Blood Count 3.20, Hemoglobin 9.0, Hematocrit 27, Mean Corpuscular Volume 84, Mean Corpuscular Hemoglobin 28, Mean Corpuscular Hemoglobin Concent 33, Red Cell Distribution Width 13.0, Platelet Count 130, Mean Platelet Volume 11.3, Immature Granulocyte % (Auto) 1, Neutrophils (%) (Auto) 62, Lymphocytes (%) (Auto) 25, Monocytes (%) (Auto) 9, Eosinophils (%) (Auto) 4, Basophils (%) (Auto) 0, Neutrophils # (Auto) 4.2, Lymphocytes # (Auto) 1.7, Monocytes # (Auto) 0.6, Eosinophils # (Auto) 0.2, Basophils # (Auto) 0.0, Immature Granulocyte # (Auto) 0.0, Sodium Level 142, Potassium Level 4.1, Chloride Level 114, Carbon Dioxide Level 20, Anion Gap 8, Blood Urea Nitrogen 9, Creatinine 0.75, Estimat Glomerular Filtration Rate 79, BUN/Creatinine Ratio 12, Glucose Level 92, Calcium Level 8.5, Corrected Calcium 9.5, Phosphorus Level 3.6, Magnesium Level 1.8, Total Bilirubin 0.3, Aspartate Amino Transf (AST/SGOT) 19, Alanine Aminotransferase (ALT/SGPT) 17, Alkaline Phosphatase 37, Total Protein 5.7, Albumin 2.8, Smear Scan YES 05/06/23 10:34: Glucometer 218 05/06/23 15:41: Glucometer 82 05/06/23 21:01: Glucometer 140 05/07/23 04:05: White Blood Count 6.4, Red Blood Count 3.47, Hemoglobin 9.6, Hematocrit 29, Mean Corpuscular Volume 84, Mean Corpuscular Hemoglobin 28, Mean Corpuscular Hemoglobin Concent 33, Red Cell Distribution Width 12.8, Platelet Count 175, Mean Platelet Volume 10.9, Immature Granulocyte % (Auto) 1, Neutrophils (%) (Auto) 66, Lymphocytes (%) (Auto) 22, Monocytes (%) (Auto) 8, Eosinophils (%) (Auto) 3, Basophils (%) (Auto) 0, Neutrophils # (Auto) 4.3, Lymphocytes # (Auto) 1.4, Monocytes # (Auto) 0.5, Eosinophils # (Auto) 0.2, Basophils # (Auto) 0.0, Immature Granulocyte # (Auto) 0.1, Neutrophils % (Manual) 68, Lymphocytes % (Manual) 13, Monocytes % (Manual) 6, Eosinophils % (Manual) 2, Band Neutrophils 5, Atypical Lymphocytes 2, Reactive Lymphocytes 4, Sodium Level 142, Potassium Level 4.3, Chloride Level 113, Carbon Dioxide Level 22, Anion Gap 7, Blood Urea Nitrogen 10, Creatinine 0.75, Estimat Glomerular Filtration Rate 79, BUN/Creatinine Ratio 13, Glucose Level 107, Calcium Level 9.0, Corrected Calcium 9.7, Phosphorus Level 3.8, Magnesium Level 1.9, Total Bilirubin 0.2, Aspartate Amino Transf (AST/SGOT) 30, Alanine Aminotransferase (ALT/SGPT) 29, Alkaline Phosphatase 47, Total Protein 6.2, Albumin 3.1 Discharge Home Medications: Active Scripts Active Reported Vitamin B-12 (Cyanocobalamin (Vitamin B-12)) 1,000 Mcg Tab.subl 1,000 Mcg SL DAILY Calcium 600 mg-D3 20 Mcg Cplt (Calcium Carbonate/Vitamin D3) 600 Mg Calcium-20 Mcg (800 Unit) Tablet 1 Each PO DAILY [Urinary Tract Health] 1 Ea PO 1800 Fiber Tabs (Calcium Polycarbophil) 625 Mg Tablet 625 Mg PO 1800 Escitalopram Oxalate 10 Mg Tablet 10 Mg PO DAILY Vitamin D3 (Cholecalciferol (Vitamin D3)) 50 Mcg (2000 Unit) Capsule 50 Mcg PO DAILY Glimepiride 2 Mg Tablet 2 Mg PO DAILY Metformin HCl 1,000 Mg Tablet 1,000 Mg PO BID Amlodipine Besylate 5 Mg Tablet 5 Mg PO DAILY Losartan Potassium 100 Mg Tablet 100 Mg PO 1800 Instructions to patient/family Please see electronic discharge instructions given to patient. Diagnosis/Problems Diagnosis/Problems (1) Sepsis (2) Acute kidney injury Status: Acute (3) Non-STEMI (non-ST elevated myocardial infarction) Status: Acute (4) UTI (urinary tract infection) Status: Acute (5) Arrhythmia Status: Acute SHAMIKA DUVAL DO May 07, 2023 11:03
--- NOTE | 2023-05-07 14:33 | Progress Note ---
TALI NAVARRO 05/07/23 1433: Progress Note Hospital course: 82-year-old female with h/o diabetes & HTN presented to the ED feeling cold for 3 days. She was weak and unable to stand and had vomiting & stool incontinence earlier in the week. She had a WBC of 18.9, lactate of 2.34, troponin of 1.232, BUN of 24 Cr of 1.75, hypotensive, and eGFR of 29. Head /cervical spine/facial bone CT showed no evidence of acute intracranial abnormality. Urine culture was positive for E. coli. Patient was admitted 05/01/23 with sepsis secondary to UTI, NSTEMI, and JOANNE. During her hospital stay, she was kept in ICU where she was placed on enoxaprin, vancomycin, cefepime, ceftriaxone, and DAPT of aspirin & clopidorel. She underwent cardiac catheteriza tion and was found to have severe calcified mid LAD bifurcation disease that requires further treatment of medical therapy vs PCI vs CABG. There is a possible new diagnosis of Afib as brief runs of PAF were seen on tele. Patient's BP fluctuated from high to low during her stay, but she stayed in stable condition and had a good recovery during her time in the ICU. Patient was discha rge on 05/07/23 and transferred to [facility] via EMS for PCI vs CABG. ELOISE DUVAL DO 05/07/23 2000: Supervisory-Addendum Brief Verification & Attestation Participated in pt care: history, MDM, physical Personally performed: exam, history, MDM, supervision of care Care discussed with: Medical Student Procedures: n/a Results interpretation: Verified all documentation Verification and Attestation of Medical Student E/M Service A medical student performed and documented this service in my presence. I reviewed and verified all information documented by the medical student and made modifications to such information, when appropriate. I personally performed the physical exam and medical decision making. Eloise Duval, May 07, 2023,20:00 TALI NAVARRO May 07, 2023 14:33 ELOISE DUVAL DO May 07, 2023 20:00
== END 2023-05-07 09:15 | disposition short-term general hospital (02) | DRG 871 ==
LOC: EDUNIT# 19:04 → ER 19:06 → ICU 22:26
PROVIDERS: ADMIT Internal Medicine; ATTEND Internal Medicine
PROC: 4A023N7 Measurement of Cardiac Sampling and Pressure, Left Heart, Percutaneous Approach (ICD-10-PCS; principal; 2023-05-05)
PROC: B2111ZZ Fluoroscopy of Multiple Coronary Arteries using Low Osmolar Contrast (ICD-10-PCS; 2023-05-05)
PROC: B2151ZZ Fluoroscopy of Left Heart using Low Osmolar Contrast (ICD-10-PCS; 2023-05-05)
DX: A41.51 Sepsis due to Escherichia coli [E. coli] (principal); I21.4 Non-ST elevation (NSTEMI) myocardial infarction; N17.9 Acute kidney failure, unspecified; N39.0 Urinary tract infection, site not specified; I95.9 Hypotension, unspecified; I25.10 Atherosclerotic heart disease of native coronary artery without angina pectoris; D69.6 Thrombocytopenia, unspecified; E11.9 Type 2 diabetes mellitus without complications; N39.3 Stress incontinence (female) (male); G20 Parkinson's disease; I10 Essential (primary) hypertension; K21.9 Gastro-esophageal reflux disease without esophagitis; I48.0 Paroxysmal atrial fibrillation; F41.9 Anxiety disorder, unspecified; F32.A Depression, unspecified; I08.1 Rheumatic disorders of both mitral and tricuspid valves; E78.5 Hyperlipidemia, unspecified; H54.7 Unspecified visual loss; Z20.822 Contact with and (suspected) exposure to COVID-19; Z79.899 Other long term (current) drug therapy; Z79.84 Long term (current) use of oral hypoglycemic drugs
CPT/HCPCS: 36415; 36600; 51702; 70450; 70486; 71045; 72125; 80053; 80061; 80202; 81000; 82550; 82553; 82805; 82947; 83605; 83735; 83874; 83880; 84100; 84443; 84484; 85007; 85025; 85027; 85610; 85730; 87040; 87077; 87081; 87088; 87186; 87636; 93005; 93041; 93306; 93458

== ENCOUNTER → 2023-07-24 | Outpatient (CLI) | payer MEDICARE ==
[~2023-07-24] MED LIST changes: +CALC-1121 PO; +CALC625T29 PO; +CHOL20002 PO; +CYAN100015 SL; +ESCI-2 PO; +[UNRECOGNIZED DRUG - OTHER] PO
--- NOTE | 2023-07-24 15:21 | Diagnostic Imaging Report ---
INDICATION: ACUTE PAIN OF RIGHT HIP COMPARISON: None. FINDINGS: 2 views of the right hip were obtained and show no fractures, dislocations, or other acute bony abnormalities. Mild osteoarthritic changes are noted. Joint spaces are otherwise intact. The soft tissues appear unremarkable. No unexpected radiopaque foreign bodies are identified. IMPRESSION: 1. Mild osteoarthritic changes of the right hip. 2. Otherwise, unremarkable radiographic exam of the right hip. Dictated by: Dictated on workstation # [id number]
== END ==
LOC: RAD 10:37
PROVIDERS: ATTEND Family Medicine
DX: M16.11 Unilateral primary osteoarthritis, right hip (principal)
CPT/HCPCS: 73502